=== PATIENT | female | born 1985 | race Caucasian/White ===

== ENCOUNTER 2020-03-04 09:48 | Outpatient (REF) | payer OTHER, SELFPAY ==
[2020-03-04 11:13] LABS: Estimated Average Glucose 157 mg/dL; Hemoglobin A1c % 7.1 %
[2020-03-04 11:48] LABS: Thyroid Stimulating Hormone 0.93 uIU/mL (0.32-4.0)
[2020-03-04 12:03] LABS: Alanine Aminotransferase 14 U/L (0-31); Alkaline Phosphatase 66 U/L (39-117); Anion Gap 9 (12-20); Aspartate Amino Transferase 15 U/L (5-31); Bilirubin Total 0.4 mg/dL (0.0-1.0); Blood Urea Nitrogen 9 mg/dL (9-16); Calcium 8.6 mg/dL (8.4-10.2); Carbon Dioxide 27 mmol/L (22-29); Chloride 105 mmol/L (96-108); Cholesterol 144 mg/dL; Estimated Glomerular Filt Rate > 60; Glucose Fasting 117 mg/dL (60-99); HDL Cholesterol 50 mg/dL; LDL Cholesterol Calculated 78 mg/dl; Potassium 4.6 mmol/l (3.3-5.1); Sodium 136 mmol/L (135-145); Total Protein 7.3 g/dL (6.5-8.0); Triglycerides 80 mg/dL
== END 2020-03-04 09:49 | disposition home or self-care (01) ==
LOC: HO.LAB 09:48
PROVIDERS: PCP Physician Assistant; Visit Provider Physician Assistant
DX: E11.9 Type 2 diabetes mellitus without complications (principal)
CPT/HCPCS: 80053; 80061; 83036; 84443

== ENCOUNTER 2020-03-29 11:06 | Outpatient (REF) | payer OTHER, SELFPAY | END 2020-03-29 11:07 | disposition home or self-care (01) | LOC: HO.HMGCLDS 11:06 | PROVIDERS: PCP Physician Assistant; Visit Provider Internal Medicine | DX: Z20.828 Contact with and (suspected) exposure to other viral communicable diseases (principal) | CPT/HCPCS: C9803; U0003 ==

== ENCOUNTER 2020-06-01 13:32 | Outpatient (REF) | payer OTHER, SELFPAY ==
[2020-06-01 14:28] LABS: Estimated Average Glucose 154 mg/dL
[2020-06-01 14:41] LABS: Alanine Aminotransferase 16 U/L (0-31); Alkaline Phosphatase 68 U/L (39-117); Anion Gap 14 (12-20); Aspartate Amino Transferase 17 U/L (5-31); Bilirubin Total 0.5 mg/dL (0.0-1.0); Blood Urea Nitrogen 11 mg/dL (9-16); Calcium 8.8 mg/dL (8.4-10.2); Carbon Dioxide 26 mmol/L (22-29); Chloride 103 mmol/L (96-108); Cholesterol 152 mg/dL; Estimated Glomerular Filt Rate > 60; Glucose Fasting 109 mg/dL (60-99); HDL Cholesterol 48 mg/dL; LDL Cholesterol Calculated 91 mg/dl; Potassium 4.6 mmol/L (3.3-5.1); Sodium 138 mmol/L (135-145); Total Protein 7.3 g/dL (6.5-8.0); Triglycerides 68 mg/dL
== END 2020-06-01 13:33 | disposition home or self-care (01) ==
LOC: HO.LAB 13:32
PROVIDERS: PCP Physician Assistant; Visit Provider Physician Assistant
DX: E11.9 Type 2 diabetes mellitus without complications (principal); E78.00 Pure hypercholesterolemia, unspecified
CPT/HCPCS: 36415; 80053; 80061; 83036

== ENCOUNTER 2020-09-23 12:14 | Outpatient (REF) | payer OTHER, SELFPAY ==
[2020-09-23 13:18] LABS: Hematocrit 40.4 % (37-47); Mean Corpuscular HGB Conc 32.2 g/dl (31.0-35.0); Mean Corpuscular Hemoglobin 27.4 pg (27.0-33.0); Mean Corpuscular Volume 85.1 fL (80-98); Mean Platelet Volume 11.4 fL (9.4-12.3); Platelet Count 283 X10*3/uL (160-400); Red Blood Count 4.75 X10*6/uL (4.20-5.50); Red Cell Distribution Width 12.8 % (11.0-16.0); White Blood Count 7.3 X10*3/uL (4.8-10.8)
[2020-09-23 13:19] LABS: Estimated Average Glucose 174 mg/dL; Hemoglobin A1c % 7.7 %
[2020-09-23 13:52] LABS: Alanine Aminotransferase 16 U/L (0-31); Alkaline Phosphatase 65 U/L (39-117); Anion Gap 13 (12-20); Aspartate Amino Transferase 17 U/L (5-31); Bilirubin Total 0.5 mg/dL (0.0-1.0); Blood Urea Nitrogen 12 mg/dL (9-16); Calcium 9.2 mg/dL (8.4-10.2); Carbon Dioxide 24 mmol/L (22-29); Chloride 107 mmol/L (96-108); Cholesterol 151 mg/dL; Estimated Glomerular Filt Rate > 60; Glucose Fasting 119 mg/dL (60-99); HDL Cholesterol 49 mg/dL; LDL Cholesterol Calculated 86 mg/dl; Potassium 4.6 mmol/L (3.3-5.1); Sodium 139 mmol/L (135-145); Total Protein 7.2 g/dL (6.5-8.0); Triglycerides 80 mg/dL
[2020-09-23 14:12] LABS: TSH reflex Free T4 1.15 uIU/mL (0.32-4.0)
== END 2020-09-23 12:15 | disposition home or self-care (01) ==
LOC: HO.10HDL 12:14
PROVIDERS: PCP Physician Assistant; Visit Provider Physician Assistant
DX: E11.9 Type 2 diabetes mellitus without complications (principal); I10 Essential (primary) hypertension; E78.00 Pure hypercholesterolemia, unspecified; E66.01 Morbid (severe) obesity due to excess calories; Z68.41 Body mass index [BMI] 40.0-44.9, adult
CPT/HCPCS: 36415; 80053; 80061; 83036; 84443; 85027

== ENCOUNTER → 2020-11-30 09:24 | Outpatient (BNVA) | payer OTHER, SELFPAY | PROVIDERS: PCP Physician Assistant; Visit Provider Obstetrics & Gynecology ==

== ENCOUNTER 2021-01-27 11:25 | Outpatient (REF) | payer OTHER, SELFPAY ==
[2021-01-27 13:43] LABS: Hematocrit 41.1 % (37-47); Hemoglobin 13.5 g/dl (12.0-16.0); Mean Corpuscular HGB Conc 32.8 g/dl (31.0-35.0); Mean Corpuscular Hemoglobin 28.3 pg (27.0-33.0); Mean Corpuscular Volume 86.2 fL (80-98); Mean Platelet Volume 11.6 fL (9.4-12.3); Platelet Count 266 X10*3/uL (160-400); Red Blood Count 4.77 X10*6/uL (4.20-5.50); Red Cell Distribution Width 13.1 % (11.0-16.0); White Blood Count 8.9 X10*3/uL (4.8-10.8)
[2021-01-27 13:58] LABS: Estimated Average Glucose 154 mg/dL
[2021-01-27 14:14] LABS: Alanine Aminotransferase 17 U/L (0-31); Albumin Level 4.1 g/dL (3.5-5.0); Alkaline Phosphatase 65 U/L (39-117); Anion Gap 12 (12-20); Aspartate Amino Transferase 16 U/L (5-31); Bilirubin Total 0.4 mg/dL (0.0-1.0); Blood Urea Nitrogen 10 mg/dL (9-16); Carbon Dioxide 24 mmol/L (22-29); Chloride 106 mmol/L (96-108); Cholesterol 151 mg/dL; Estimated Glomerular Filt Rate > 60; Glucose Fasting 113 mg/dL (60-99); HDL Cholesterol 46 mg/dL; LDL Cholesterol Calculated 83 mg/dl; Potassium 4.5 mmol/L (3.3-5.1); Sodium 137 mmol/L (135-145); Total Protein 7.4 g/dL (6.5-8.0); Triglycerides 114 mg/dL
== END 2021-01-27 11:26 | disposition home or self-care (01) ==
LOC: HO.10HDL 11:25
PROVIDERS: Visit Provider Physician Assistant
DX: I10 Essential (primary) hypertension (principal); E11.9 Type 2 diabetes mellitus without complications; E78.00 Pure hypercholesterolemia, unspecified
CPT/HCPCS: 36415; 80053; 80061; 83036; 85027

== ENCOUNTER → 2021-02-10 11:19 | Outpatient (BNVA) | payer OTHER, SELFPAY | PROVIDERS: PCP Physician Assistant; Visit Provider Dietitian, Registered | DX: E11.9 Type 2 diabetes mellitus without complications (principal) | CPT/HCPCS: 97802 ==

== ENCOUNTER → 2021-02-23 15:57 | Outpatient (BNVA) | payer OTHER, SELFPAY | PROVIDERS: PCP Physician Assistant; Visit Provider Obstetrics & Gynecology ==

== ENCOUNTER 2021-02-24 11:35 | Outpatient (REF) | payer OTHER, SELFPAY ==
[2021-02-25 04:31] LABS: CT PCR NOT DETECTED (Not Detect.); NG PCR NOT DETECTED (Not Detect.)
== END 2021-02-24 11:36 | disposition home or self-care (01) ==
LOC: HO.LAB 11:35
PROVIDERS: PCP Physician Assistant; Visit Provider Obstetrics & Gynecology
DX: Z30.430 Encounter for insertion of intrauterine contraceptive device (principal)
CPT/HCPCS: 58300; 87491; 87591; J7298

== ENCOUNTER → 2021-03-24 10:48 | Outpatient (BNVA) | payer OTHER, SELFPAY | PROVIDERS: PCP Physician Assistant; Visit Provider Dietitian, Registered | DX: E11.9 Type 2 diabetes mellitus without complications (principal) | CPT/HCPCS: 97803 ==

== ENCOUNTER → 2021-03-28 15:43 | Outpatient (BNVA) | payer OTHER, SELFPAY | PROVIDERS: PCP Physician Assistant; Visit Provider Obstetrics & Gynecology | DX: Z30.431 Encounter for routine checking of intrauterine contraceptive device (principal) | CPT/HCPCS: 81025; 99212 ==

== ENCOUNTER 2021-06-02 12:20 | Outpatient (REF) | payer OTHER, SELFPAY ==
[2021-06-02 14:01] LABS: Estimated Average Glucose 120 mg/dL; Hemoglobin A1c % 5.8 %
[2021-06-02 14:09] LABS: Alanine Aminotransferase 17 U/L (0-31); Albumin Level 4.1 g/dL (3.5-5.0); Alkaline Phosphatase 65 U/L (39-117); Anion Gap 10 (12-20); Aspartate Amino Transferase 19 U/L (5-31); Bilirubin Total 0.5 mg/dL (0.0-1.0); Blood Urea Nitrogen 10 mg/dL (9-16); Calcium 9.1 mg/dL (8.4-10.2); Carbon Dioxide 22 mmol/L (22-29); Chloride 109 mmol/L (96-108); Cholesterol 118 mg/dL; Estimated Glomerular Filt Rate > 60; Glucose Fasting 95 mg/dL (60-99); HDL Cholesterol 41 mg/dL; LDL Cholesterol Calculated 66 mg/dl; Sodium 137 mmol/L (135-145); Total Protein 7.1 g/dL (6.5-8.0); Triglycerides 55 mg/dL
[2021-06-02 14:31] LABS: TSH reflex Free T4 0.77 uIU/mL (0.32-4.0)
== END 2021-06-02 12:21 | disposition home or self-care (01) ==
LOC: HO.10HDL 12:20
PROVIDERS: Visit Provider Physician Assistant
DX: E11.9 Type 2 diabetes mellitus without complications (principal)
CPT/HCPCS: 36415; 80053; 80061; 83036; 84443

== ENCOUNTER → 2021-06-09 13:26 | Outpatient (BNVA) | payer OTHER, SELFPAY | PROVIDERS: PCP Physician Assistant; Visit Provider Dietitian, Registered | DX: E11.9 Type 2 diabetes mellitus without complications (principal) | CPT/HCPCS: 97803 ==

== ENCOUNTER 2021-07-21 11:34 | Outpatient (REF) | payer OTHER, SELFPAY ==
[2021-07-21 13:04] LABS: Alanine Aminotransferase 23 U/L (0-31); Albumin Level 4.2 g/dL (3.5-5.0); Alkaline Phosphatase 81 U/L (39-117); Anion Gap 10 (12-20); Aspartate Amino Transferase 19 U/L (5-31); Bilirubin Total 0.5 mg/dL (0.0-1.0); Blood Urea Nitrogen 9 mg/dL (9-16); Calcium 9.3 mg/dL (8.4-10.2); Carbon Dioxide 23 mmol/L (22-29); Chloride 110 mmol/L (96-108); Estimated Glomerular Filt Rate > 60; Glucose Fasting 103 mg/dL (60-99); Potassium 4.7 mmol/L (3.3-5.1); Sodium 138 mmol/L (135-145); Total Protein 7.4 g/dL (6.5-8.0)
[2021-07-21 13:24] LABS: TSH reflex Free T4 0.82 uIU/mL (0.32-4.0)
[2021-07-21 13:36] LABS: Hematocrit 41.5 % (37.0-47.0); Hemoglobin 13.5 g/dl (12.0-16.0); Mean Corpuscular HGB Conc 32.5 g/dl (31.0-35.0); Mean Corpuscular Hemoglobin 28.3 pg (27.0-33.0); Mean Platelet Volume 11.7 fL (9.4-12.3); Platelet Count 280 X10*3/uL (160-400); Red Blood Count 4.77 X10*6/uL (4.20-5.50); Red Cell Distribution Width 13.5 % (11.0-16.0)
== END 2021-07-21 11:35 | disposition home or self-care (01) ==
LOC: HO.LAB 11:34
PROVIDERS: PCP Physician Assistant; Visit Provider Physician Assistant
DX: E11.9 Type 2 diabetes mellitus without complications (principal)
CPT/HCPCS: 36415; 80053; 84443; 85027

== ENCOUNTER 2021-12-22 11:19 | Outpatient (REF) | payer OTHER, SELFPAY ==
[2021-12-22 17:04] LABS: CT PCR NOT DETECTED (Not Detect.); NG PCR NOT DETECTED (Not Detect.)
[2021-12-23 08:02] LABS: Syphilis Screen Nonreactive (Nonreactive)
[2021-12-23 08:08] LABS: HBsAGNum1 0.27 S/CO (0.00-0.99); HIV AB/AG Nonreactive (Nonreactive); Hepatitis B Surface Antigen Negative (Negative); ~Hepatitis C Antibody Nonreactive (Nonreactive)
[2021-12-23 14:28] LABS: BV Int Neg Control Negative (Negative); BV Int Pos Control Positive (Positive)
== END 2021-12-22 11:20 | disposition home or self-care (01) ==
LOC: HO.LAB 11:19
PROVIDERS: PCP Physician Assistant; Visit Provider Obstetrics & Gynecology
DX: Z11.3 Encounter for screening for infections with a predominantly sexual mode of transmission (principal); Z11.4 Encounter for screening for human immunodeficiency virus [HIV]
CPT/HCPCS: 36415; 86780; 86803; 87340; 87389; 87480; 87491; 87510; 87591; 87660

== ENCOUNTER 2021-12-22 15:51 | Outpatient (REF) | payer OTHER, SELFPAY ==
[2021-12-28 00:37] LABS: HPV mRNA E6/E7 rflx Not Detected (Not Detected)
== END 2021-12-22 15:52 | disposition home or self-care (01) ==
LOC: HO.LNP 15:51
PROVIDERS: Visit Provider Obstetrics & Gynecology
DX: Z01.419 Encounter for gynecological examination (general) (routine) without abnormal findings (principal)
CPT/HCPCS: 87624; 88142

== ENCOUNTER 2022-02-01 08:30 | Outpatient (REF) | payer OTHER, SELFPAY ==
[2022-02-01 09:04] LABS: Hematocrit 41.8 % (37.0-47.0); Hemoglobin 13.5 g/dl (12.0-16.0); Mean Corpuscular HGB Conc 32.3 g/dl (31.0-35.0); Mean Corpuscular Hemoglobin 28.5 pg (27.0-33.0); Mean Corpuscular Volume 88.2 fL (80.0-98.0); Platelet Count 268 X10*3/uL (160-400); Red Blood Count 4.74 X10*6/uL (4.20-5.50); Red Cell Distribution Width 13.2 % (11.0-16.0); White Blood Count 10.5 X10*3/uL (4.8-10.8)
[2022-02-01 09:22] LABS: Estimated Average Glucose 140 mg/dL; Hemoglobin A1c % 6.5 %
[2022-02-01 09:59] LABS: Alanine Aminotransferase 24 U/L (0-31); Albumin Level 4.2 g/dL (3.5-5.0); Alkaline Phosphatase 82 U/L (39-117); Anion Gap 14 (12-20); Aspartate Amino Transferase 19 U/L (5-31); Bilirubin Total 0.3 mg/dL (0.0-1.0); Blood Urea Nitrogen 16 mg/dL (9-16); Calcium 9.1 mg/dL (8.4-10.2); Carbon Dioxide 26 mmol/L (22-29); Chloride 104 mmol/L (96-108); Cholesterol 122 mg/dL; Estimated Glomerular Filt Rate > 60; Glucose Fasting 134 mg/dL (60-99); HDL Cholesterol 44 mg/dL; LDL Cholesterol Calculated 62 mg/dl; Potassium 4.5 mmol/L (3.3-5.1); Sodium 139 mmol/L (135-145); Total Protein 7.3 g/dL (6.5-8.0); Triglycerides 80 mg/dL
[2022-02-01 10:19] LABS: TSH reflex Free T4 1.07 uIU/mL (0.32-4.0)
== END 2022-02-01 08:31 | disposition home or self-care (01) ==
LOC: HO.LAB 08:30
PROVIDERS: PCP Physician Assistant; Visit Provider Physician Assistant
DX: E11.9 Type 2 diabetes mellitus without complications (principal)
CPT/HCPCS: 36415; 80053; 80061; 83036; 84443; 85027

== ENCOUNTER → 2022-02-22 09:07 | Outpatient (REF) | payer OTHER, SELFPAY | LOC: HO.SL 09:07 | PROVIDERS: PCP Physician Assistant; Visit Provider Physician Assistant | DX: G47.33 Obstructive sleep apnea (adult) (pediatric) (principal) | CPT/HCPCS: 95806 ==

== ENCOUNTER 2022-06-30 13:15 | Emergency (ER) | payer OTHER, SELFPAY ==
[2022-06-30 13:58] VITALS: BP 138/93; PULSE 93; RESP 18; TEMP 36.8; O2SAT 94; BMI 39.4
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
== END 2022-06-30 14:12 | disposition home or self-care (01) ==
PROVIDERS: Emergency Provider Emergency Medicine; PCP Physician Assistant
DX: M54.50 Low back pain, unspecified (principal); M62.830 Muscle spasm of back; S39.012A Strain of muscle, fascia and tendon of lower back, initial encounter; V43.62XA Car passenger injured in collision with other type car in traffic accident, initial encounter; Y93.9 Activity, unspecified; Y92.9 Unspecified place or not applicable; Y99.9 Unspecified external cause status
CPT/HCPCS: 99282; 99283

== ENCOUNTER 2022-08-10 11:51 | Outpatient (REF) | payer OTHER, SELFPAY ==
[2022-08-10 12:24] LABS: Hematocrit 43.3 % (37.0-47.0); Hemoglobin 14.3 g/dl (12.0-16.0); Mean Corpuscular Hemoglobin 28.5 pg (27.0-33.0); Mean Corpuscular Volume 86.4 fL (80.0-98.0); Platelet Count 269 X10*3/uL (160-400); Red Blood Count 5.01 X10*6/uL (4.20-5.50); Red Cell Distribution Width 12.8 % (11.0-16.0)
[2022-08-10 12:40] LABS: Estimated Average Glucose 140 mg/dL; Hemoglobin A1c % 6.5 %
[2022-08-10 13:08] LABS: Alanine Aminotransferase 50 U/L (0-31); Albumin Level 4.1 g/dL (3.5-5.0); Alkaline Phosphatase 91 U/L (39-117); Anion Gap 13 (12-20); Aspartate Amino Transferase 39 U/L (5-31); Bilirubin Total 0.7 mg/dL (0.0-1.0); Blood Urea Nitrogen 8 mg/dL (9-16); Calcium 9.1 mg/dL (8.4-10.2); Carbon Dioxide 26 mmol/L (22-29); Chloride 105 mmol/L (96-108); Cholesterol 114 mg/dL; Estimated Glomerular Filt Rate > 60; Glucose Fasting 111 mg/dL (60-99); HDL Cholesterol 38 mg/dL; LDL Cholesterol Calculated 65 mg/dl; Potassium 4.8 mmol/L (3.3-5.1); Sodium 139 mmol/L (135-145); Total Protein 7.2 g/dL (6.5-8.0); Triglycerides 59 mg/dL
== END 2022-08-10 11:52 | disposition home or self-care (01) ==
LOC: HO.LAB 11:51
PROVIDERS: PCP Physician Assistant; Visit Provider Physician Assistant
DX: E11.9 Type 2 diabetes mellitus without complications (principal); E78.00 Pure hypercholesterolemia, unspecified
CPT/HCPCS: 36415; 80053; 80061; 83036; 84443; 85027

== ENCOUNTER 2022-08-31 08:35 | Outpatient (REF) | payer OTHER, SELFPAY ==
--- NOTE | ~2022-08-31 | US_ITS ---
EXAMINATION: US ABDOMEN LIMITED CLINICAL INFORMATION: Elevated liver enzymes. COMPARISON: None available. TECHNIQUE: Real-time imaging of the right upper quadrant abdominal viscera. FINDINGS: PANCREAS: Not well visualized bowel gas LIVER: Normal. The liver is normal in size. The liver contour is normal. Parenchymal echogenicity is normal. No focal hepatic lesion. There is no intrahepatic biliary duct dilatation seen. GALLBLADDER: Surgically absent. COMMON BILE DUCT: Normal in caliber measuring 0.5 cm in diameter. RIGHT KIDNEY: Normal. No hydronephrosis. No renal calculi or focal parenchymal lesions. The kidney measures 9.7 cm in maximum dimension. FREE FLUID: None. US/US abdomen limited IMPRESSION: Limited visualization of the pancreas. Otherwise unremarkable exam.
== END 2022-08-31 08:36 | disposition home or self-care (01) ==
LOC: HO.US 08:35
PROVIDERS: PCP Physician Assistant; Visit Provider Physician Assistant
DX: R74.8 Abnormal levels of other serum enzymes (principal)
CPT/HCPCS: 76705

== ENCOUNTER 2022-11-13 08:40 | Outpatient (AMB) | payer OTHER, SELFPAY ==
[2022-11-13 08:48] VITALS: BP 126/84; PULSE 80; O2SAT 99; BMI 39.3
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
== END 2022-11-13 09:31 | disposition home or self-care (01) ==
PROVIDERS: PCP Physician Assistant; Visit Provider Physician Assistant
DX: F41.0 Panic disorder [episodic paroxysmal anxiety] (principal)
CPT/HCPCS: 99213

== ENCOUNTER 2022-11-27 18:53 | Emergency (ER) | payer OTHER, SELFPAY ==
--- NOTE | ~2022-11-27 | XR_ITS ---
EXAMINATION: XR CHEST CLINICAL INFORMATION: Palpitations COMPARISON: Chest x-ray on 04/24/2019 TECHNIQUE: 2 views of the chest were obtained. FINDINGS: No significant abnormality is noted involving the heart, lungs, mediastinum, bony thorax or soft tissues. XR/XR chest 2V IMPRESSION: Unremarkable examination.
--- NOTE | 2022-11-27 18:56 | ECG_ITS ---
Test Reason : palpitations Blood Pressure : / mmHG Vent. Rate : 090 BPM Atrial Rate : 090 BPM P-R Int : 144 ms QRS Dur : 072 ms QT Int : 358 ms P-R-T Axes : 051 027 030 degrees QTc Int : 437 ms Normal sinus rhythm Anterior infarct , age undetermined Abnormal ECG No previous ECGs available Referred By: Ruth Awad Electronically Signed By:Mukund Gauthier
[2022-11-27 19:47] LABS: MANUAL DIFF FLAG NO
[2022-11-27 19:48] LABS: Basophils Percent Auto 0.4 % (0-2); Eosinophils Absolute Auto 0.1 X10*3/uL (0.0-0.4); Eosinophils Percent Auto 0.8 % (0-4); Hematocrit 41.8 % (37.0-47.0); Hemoglobin 13.8 g/dl (12.0-16.0); Imm Gran Abs Auto 0.04 X10*3/uL (0.00-0.03); Imm Gran Pct Auto 0.4 % (0.0-0.4); Lymphocytes Absolute Auto 2.5 X10*3/uL (1.2-4.9); Lymphocytes Percent Auto 25.2 % (20-40); Mean Corpuscular Hemoglobin 28.2 pg (27.0-33.0); Mean Corpuscular Volume 85.5 fL (80.0-98.0); Mean Platelet Volume 10.8 fL (9.4-12.3); Monocytes Absolute Auto 0.6 X10*3/uL (0.1-1.2); Neutrophils Absolute Auto 6.6 x10*3/uL (2.0-8.3); Neutrophils Percent Auto 67.2 % (45-73); Platelet Count 288 X10*3/uL (160-400); Red Blood Count 4.89 X10*6/uL (4.20-5.50); Red Cell Distribution Width 12.7 % (11.0-16.0); White Blood Count 9.8 X10*3/uL (4.8-10.8)
[2022-11-27 20:01] LABS: COVID-19 Test Negative (Negative); IDNOW Serial# 6674DD1D
[2022-11-27 20:02] LABS: Alanine Aminotransferase 39 U/L (0-31); Albumin Level 4.4 g/dL (3.5-5.0); Alkaline Phosphatase 81 U/L (39-117); Anion Gap 11 (12-20); Aspartate Amino Transferase 31 U/L (5-31); Bilirubin Total 0.3 mg/dL (0.0-1.0); Blood Urea Nitrogen 9 mg/dL (9-16); Calcium 9.4 mg/dL (8.4-10.2); Carbon Dioxide 26 mmol/L (22-29); Chloride 107 mmol/L (96-108); Estimated Glomerular Filt Rate > 60; Glucose Random 128 mg/dL (60-115); Magnesium 1.8 mg/dL (1.6-2.6); Potassium 4.1 mmol/L (3.3-5.1); Sodium 140 mmol/L (135-145)
[2022-11-27 20:12] LABS: Troponin-I High Sensitivity < 2.7 ng/L (<3.5-17.0)
[2022-11-27 20:27] VITALS: BP 139/93; PULSE 86; RESP 20; TEMP 36.4; O2SAT 98; BMI 39.1
--- NOTE | 2022-11-27 20:29 | ED.GENADULT ---
HPI - General Adult General Chief complaint: Anxiety Stated complaint: heartbeat too fast/anxiety Time Seen by Provider: 11/27/22 20:38 Source: patient Mode of arrival: ambulatory Limitations: no limitations History of Present Illness HPI narrative: Patient with history of anxiety complaining of palpitations diarrhea all day today unable to sleep when arrived artery was in 70s and was feeling anxious and feeling palpitation but it was sinus rhythm no chest pain or shortness of breath Related Data Home Medications Medication Instructions Recorded Confirmed levonorgestrel 21 mcg/24 hours (8 intrauterine 03/28/21 11/13/22 yrs) 52 mg intrauterine device (Mirena) cholecalciferol (vitamin D3) 25 25 mcg PO DAILY 12/22/21 11/13/22 mcg (1,000 unit) capsule Previous Rx's Medication Instructions Recorded magnesium oxide 400 mg PO .nightly 90 days #90 tabs 09/30/20 lancets 28 gauge (FreeStyle #100 ea 12/09/20 Lancets) blood-glucose meter (FreeStyle #1 ea 12/13/20 Lite Meter kit) blood sugar diagnostic (FreeStyle #100 ea 12/19/20 Lite Strips) albuterol sulfate 90 mcg/actuation 1 inh inhalation QID PRN shortness 12/28/21 aerosol inhaler of breath or wheezing 30 days #8.5 grams pen needle, diabetic 32 gauge x #50 ea 02/07/22 (BD Ultra-Fine Elizabeth Pen Needle) atomoxetine 80 mg capsule 80 mg PO DAILY 30 days #30 caps 08/15/22 (Strattera) ibuprofen 600 mg tablet 600 mg PO Q8H PRN pain #30 tabs 08/15/22 dulaglutide 0.75 mg/0.5 mL 0.75 mg (0.5 mL) subcut QWEEK 90 10/06/22 subcutaneous pen injector days #6.5 mL (Trulicity) simvastatin 20 mg tablet 20 mg PO DAILY #90 tabs 11/09/22 hydroxyzine HCl 10 mg tablet 20 mg PO BEDTIME PRN anxiety 30 11/13/22 days #60 tabs lorazepam 1 mg tablet (Ativan) 1 mg PO BEDTIME PRN sleep/anxiety 11/27/22 #14 tabs Allergies Allergy/AdvReac Type Severity Reaction Status Date / Time acetaminophen [Lortab] AdvReac Unknown Unknown Verified 11/13/22 09:10 hydrocodone [Lortab] AdvReac Unknown Unknown Verified 11/13/22 09:10 metformin AdvReac Unknown Unknown Verified 11/13/22 09:10 Review of Systems Review of Systems: Yes all other systems are reviewed and are negative [facility] Past Medical History Medical History Arthritis Diabetes Surgical History History of cholecystectomy Hx of tonsillectomy Family History Family History Father Medical history unknown Mother Diabetes Schizophrenia Maternal Uncle Hypertension Myocardial infarction Family/Other Diabetes Cancer Maternal Grandfather Aneurysm Brother No problems noted. Brother No problems noted. Sister No problems noted. 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 Oriented X3. No acute distress. Eyes: PERRLA, No Nystagmus ENT: Pharynx normal. Oral Mucosa moist Neck: Normal inspection. Neck supple. CVS: Normal heart rate and rhythm. Pulses normal. Respiratory: No respiratory distress. Equal air entry bilateral, no wheezing/rales/rhonchi Abdomen: Soft and nontender. Bowel sounds are present, no mass palpable, no CVA tenderness Skin: Skin warm and dry. Normal skin color. Normal skin turgor. Extremities: No lower extremity edema. No calf tenderness Neuro: Oriented X 3. No motor deficit. No sensory deficit.No cerebellar signs , cranial nerves II-XII intact Course Course Course Narrative: RME performed by Ruth Awad PA-C. Patient is a 37 year old assigned female at presenting to the emergency department with palpitations and worsening anxiety. Labs ordered. Patient placed back in the waiting room pending room availability and results. Medications Administered Discontinued Medications Generic Name Dose Route Start Last Admin Trade Name Tracey PRN Reason Stop Dose Admin Lorazepam 0.5 mg 11/27/22 21:01 11/27/22 21:10 Lorazepam 0.5 Mg Tablet PO 11/27/22 21:02 0.5 mg ONCE ONE Administration Medical Decision Making Medical Decision Making MDM Narrative: Patient with anxiety with palpitation labs are stable discharge patient home on Ativan Lab Data [facility] Lab Attestation statement: I reviewed the patient's lab results. 11/27/22 19:43 11/27/22 19:43 Labs: Lab Results 11/27/22 11/27/22 11/27/22 Range/Units 19:43 19:43 19:43 WBC 9.8 (4.8-10.8) X10*3/uL RBC 4.89 (4.20-5.50) X10*6/uL Hgb 13.8 (12.0-16.0) g/dl Hct 41.8 (37.0-47.0) % MCV 85.5 (80.0-98.0) fL MCH 28.2 (27.0-33.0) pg MCHC 33.0 (31.0-35.0) g/dl RDW 12.7 (11.0-16.0) % Plt Count 288 (160-400) X10*3/uL MPV 10.8 (9.4-12.3) fL Immature Gran % (Auto) 0.4 (0.0-0.4) % Neut % (Auto) 67.2 (45-73) % Lymph % (Auto) 25.2 (20-40) % [place] % (Auto) 6.0 (2-11) % Eos % (Auto) 0.8 (0-4) % Baso % (Auto) 0.4 (0-2) % Lymph # (Auto) 2.5 (1.2-4.9) X10*3/uL [place] # (Auto) 0.6 (0.1-1.2) X10*3/uL Eos # (Auto) 0.1 (0.0-0.4) X10*3/uL Baso # (Auto) 0.0 (0.0-0.2) X10*3/uL Abs Immat Gran (auto) 0.04 H (0.00-0.03) X10*3/uL Absolute Neuts (auto) 6.6 (2.0-8.3) x10*3/uL Absolute Nucleated RBC 0.000 (0.0-0.012) X10*3/uL Nucleated RBC % (auto) 0.0 (0.0-0.2) /100WBC Sodium 140 (135-145) mmol/L Potassium 4.1 (3.3-5.1) mmol/L Chloride 107 (96-108) mmol/L Carbon Dioxide 26 (22-29) mmol/L Anion Gap 11 L (12-20) BUN 9 (9-16) mg/dL Creatinine 0.78 (0.5-1.4) mg/dL Estim Creat Clear Calc TNP Estimated GFR > 60 Random Glucose 128 H (60-115) mg/dL Calcium 9.4 (8.4-10.2) mg/dL Magnesium 1.8 (1.6-2.6) mg/dL Total Bilirubin 0.3 (0.0-1.0) mg/dL AST 31 (5-31) U/L ALT 39 H (0-31) U/L Alkaline Phosphatase 81 (39-117) U/L Troponin I High Sens < 2.7 (<3.5-17.0) ng/L Total Protein 8.0 (6.5-8.0) g/dL Albumin 4.4 (3.5-5.0) g/dL COVID-19 (ARASELI) (Negative) COVID-19 Clin Com 11/27/22 Range/Units 19:43 WBC (4.8-10.8) X10*3/uL RBC (4.20-5.50) X10*6/uL Hgb (12.0-16.0) g/dl Hct (37.0-47.0) % MCV (80.0-98.0) fL MCH (27.0-33.0) pg MCHC (31.0-35.0) g/dl RDW (11.0-16.0) % Plt Count (160-400) X10*3/uL MPV (9.4-12.3) fL Immature Gran % (Auto) (0.0-0.4) % Neut % (Auto) (45-73) % Lymph % (Auto) (20-40) % [place] % (Auto) (2-11) % Eos % (Auto) (0-4) % Baso % (Auto) (0-2) % Lymph # (Auto) (1.2-4.9) X10*3/uL [place] # (Auto) (0.1-1.2) X10*3/uL Eos # (Auto) (0.0-0.4) X10*3/uL Baso # (Auto) (0.0-0.2) X10*3/uL Abs Immat Gran (auto) (0.00-0.03) X10*3/uL Absolute Neuts (auto) (2.0-8.3) x10*3/uL Absolute Nucleated RBC (0.0-0.012) X10*3/uL Nucleated RBC % (auto) (0.0-0.2) /100WBC Sodium (135-145) mmol/L Potassium (3.3-5.1) mmol/L Chloride (96-108) mmol/L Carbon Dioxide (22-29) mmol/L Anion Gap (12-20) BUN (9-16) mg/dL Creatinine (0.5-1.4) mg/dL Estim Creat Clear Calc Estimated GFR Random Glucose (60-115) mg/dL Calcium (8.4-10.2) mg/dL Magnesium (1.6-2.6) mg/dL Total Bilirubin (0.0-1.0) mg/dL AST (5-31) U/L ALT (0-31) U/L Alkaline Phosphatase (39-117) U/L Troponin I High Sens (<3.5-17.0) ng/L Total Protein (6.5-8.0) g/dL Albumin (3.5-5.0) g/dL COVID-19 (ARASELI) Negative (Negative) COVID-19 Clin Com See Note Independent Interpretation I performed an independent interpretation of an: EKG Interpretation: Normal sinus rhythm heart rate 90 beats per minute normal interval normal axis no acute ST-T changes no acute ischemia Discharge Plan Discharge Clinical Impression: Acute anxiety Patient Disposition: Home, Self-Care Instructions: Anxiety (ED) Additional Instructions: Continue medication as prescribed by your PCP Ativan 1 mg at bedtime as needed for severe anxiety/sleep Prescriptions: New lorazepam [Ativan] 1 mg tablet 1 mg PO BEDTIME PRN (Reason: sleep/anxiety) Qty: 14 0RF No Action (DME) lancets [FreeStyle Lancets] 28 gauge misc See Rx Instructions .ROUTE .MEDSUPPLY Qty: 100 3RF Rx Instructions: As directed (DME) blood-glucose meter [FreeStyle Lite Meter] Kit See Rx Instructions .Route Qty: 1 0RF Rx Instructions: Test 3 times Daiy (DME) FreeStyle Lite Strips Strip See Rx Instructions .ROUTE .MEDSUPPLY Qty: 100 1RF Rx Instructions: Test 3 times Daily albuterol sulfate 90 mcg/actuation HFA aerosol inhaler 1 inh inhalation QID PRN (Reason: shortness of breath or wheezing) 30 Days Qty: 8.5 0RF Trulicity 0.75 mg/0.5 mL pen injector 0.75 mg subcut QWEEK 90 Days Qty: 6.5 0RF simvastatin 20 mg tablet 20 mg PO DAILY Qty: 90 1RF magnesium oxide 400 mg magnesium tablet 400 mg PO .nightly 90 Days Qty: 90 1RF ibuprofen 600 mg tablet 600 mg PO Q8H PRN (Reason: pain) Qty: 30 0RF atomoxetine [Strattera] 80 mg capsule 80 mg PO DAILY 30 Days Qty: 30 3RF hydroxyzine HCl 10 mg tablet 20 mg PO BEDTIME PRN (Reason: anxiety) 30 Days Qty: 60 0RF (DME) pen needle, diabetic [BD Ultra-Fine Elizabeth Pen Needle] 32 gauge x 5/32 needle See Rx Instructions .ROUTE .MEDSUPPLY Qty: 50 0RF Rx Instructions: As directed Mirena 20 mcg/24 hours (7 yrs) 52 mg intrauterine device intrauterine cholecalciferol (vitamin D3) 25 mcg (1,000 unit) capsule 25 mcg PO DAILY Mirena 20 mcg/24 hours (7 yrs) 52 mg intrauterine device 1 device intrauterine ONCE Qty: 1 0RF Interventions: ED Discharge Assessment Last Done: 11/27/22 21:23 Discharge Date/Time: 11/27/22 21:24
[2022-11-27 21:02] VITALS: BP 130/79; PULSE 79; RESP 20; TEMP 36.6; O2SAT 100
[2022-11-27] MEDS: LORazepam 0.5 MG TABLET PO (21:10)
[2022-11-28 06:48] LABS: Glucose, Whole Blood 135 mg/dL (60-115)
== END 2022-11-27 21:24 | disposition home or self-care (01) ==
PROVIDERS: Physician Assistant Medical; Emergency Provider Internal Medicine; PCP Physician Assistant
DX: F41.9 Anxiety disorder, unspecified (principal); Z20.822 Contact with and (suspected) exposure to COVID-19; E11.9 Type 2 diabetes mellitus without complications; E78.5 Hyperlipidemia, unspecified; F17.200 Nicotine dependence, unspecified, uncomplicated; F12.90 Cannabis use, unspecified, uncomplicated; E66.9 Obesity, unspecified; Z68.39 Body mass index [BMI] 39.0-39.9, adult; Z90.49 Acquired absence of other specified parts of digestive tract; Z79.85 Long-term (current) use of injectable non-insulin antidiabetic drugs; Z79.899 Other long term (current) drug therapy
CPT/HCPCS: 71046; 80053; 82947; 83735; 84484; 85025; 87635; 93005; 99283

== ENCOUNTER → 2022-11-27 18:56 | Outpatient (BNV) | payer OTHER, SELFPAY | PROVIDERS: Emergency Provider Internal Medicine; PCP Physician Assistant; Visit Provider Internal Medicine Cardiovascular Disease | DX: R00.2 Palpitations (principal); R94.31 Abnormal electrocardiogram [ECG] [EKG] | CPT/HCPCS: 93010 ==

== ENCOUNTER 2022-12-22 13:58 | Outpatient (REF) | payer OTHER, SELFPAY ==
[2022-12-22 14:55] LABS: Hemoglobin 13.6 g/dl (12.0-16.0); Mean Corpuscular HGB Conc 32.4 g/dl (31.0-35.0); Mean Corpuscular Hemoglobin 27.7 pg (27.0-33.0); Mean Corpuscular Volume 85.5 fL (80.0-98.0); Mean Platelet Volume 11.3 fL (9.4-12.3); Platelet Count 278 X10*3/uL (160-400); Red Blood Count 4.91 X10*6/uL (4.20-5.50); Red Cell Distribution Width 12.9 % (11.0-16.0); White Blood Count 9.5 X10*3/uL (4.8-10.8)
[2022-12-22 15:09] LABS: Estimated Average Glucose 128 mg/dL; Hemoglobin A1c % 6.1 % (<6.0)
[2022-12-22 16:18] LABS: Alanine Aminotransferase 41 U/L (0-31); Albumin Level 4.3 g/dL (3.5-5.0); Alkaline Phosphatase 78 U/L (39-117); Anion Gap 15 (12-20); Aspartate Amino Transferase 33 U/L (5-31); Bilirubin Total 0.6 mg/dL (0.0-1.0); Blood Urea Nitrogen 9 mg/dL (9-16); Calcium 9.9 mg/dL (8.4-10.2); Carbon Dioxide 23 mmol/L (22-29); Chloride 106 mmol/L (96-108); Cholesterol 134 mg/dL (<200); Estimated Glomerular Filt Rate > 60; Glucose Fasting 96 mg/dL (60-99); HDL Cholesterol 49 mg/dL (>40); LDL Cholesterol Calculated 75 mg/dL (<100); Potassium 4.1 mmol/L (3.3-5.1); Sodium 140 mmol/L (135-145); Total Protein 7.6 g/dL (6.5-8.0); Triglycerides 52 mg/dL (<150)
[2022-12-23 14:26] LABS: HBS Num1 5.72 mIU/mL (0-7.99); HBc Num1 0.07 S/CO (0.00-0.79); Hepatitis B Core Antibody Nonreactive (Nonreactive); Hepatitis B Surface Antigen Negative (Negative); ~HepC Num1 0.08 S/CO (0.00-0.79); ~Hepatitis B Surface Antibody NONREACTIVE (Nonreactive); ~Hepatitis C Antibody Nonreactive (Nonreactive)
== END 2022-12-22 13:59 | disposition home or self-care (01) ==
LOC: HO.LAB 13:58
PROVIDERS: PCP Physician Assistant; Visit Provider Physician Assistant
DX: E78.00 Pure hypercholesterolemia, unspecified (principal); E11.9 Type 2 diabetes mellitus without complications
CPT/HCPCS: 36415; 80053; 80061; 83036; 85027; 86704; 86706; 86803; 87340

== ENCOUNTER 2022-12-27 13:43 | Outpatient (AMB) | payer OTHER, SELFPAY ==
--- NOTE | 2021-12-28 10:04 | A.OFFVIS_ITS ---
Intake Vital Signs 12/27/22 14:04 Height 5 ft Weight 196 lb BMI 38.3 BP 102/74 Intake Visit Reasons: Annual House Registry Rn Required: No Information Interpreted: non-clinical & clinical Rug Cleaner Hand: Rug Cleaner Hand Present ([place]) Allergies acetaminophen [Lortab] Adverse Reaction (Unknown, Verified 12/27/22 14:07) Unknown hydrocodone [Lortab] Adverse Reaction (Unknown, Verified 12/27/22 14:07) Unknown metformin Adverse Reaction (Unknown, Verified 12/27/22 14:07) Unknown Is last menstrual period known: No (Mirena) Post menopausal: No HPI HPI Comments History of Present Illness Details Presenting for annual exam. Complaining of facial hair growth of many years duration. The patient is to have oligomenorrhea but has developed amenorrhea since Mirena IUD insertion over the last week. No nipple discharge Last Pap/HPV was negative in 01/12 [facility] Medical History Arthritis Diabetes Surgical History History of cholecystectomy Hx of tonsillectomy Family History Father Medical history unknown Mother Diabetes Schizophrenia Maternal Uncle Hypertension Myocardial infarction Family/Other Diabetes Cancer Maternal Grandfather Aneurysm Brother No problems noted. Brother No problems noted. Sister No problems noted. 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 Sexual orientation: Straight/Heterosexual Gender identity: Female Cognitive needs: No Hearing needs: No Vision needs: No Female Reproductive History Menstrual Age of Menarche: 11 control method: progestin IUCD Total pregnancies: 0 Date of last pap smear: 12/23/21 (negative) Review of Systems Const All systems reviewed & are unremarkable except as noted in HPI and below Card Reports as per HPI Resp Reports as per HPI GI Reports as per HPI and Reports no additional complaints Reports as per HPI Physical Exam Vital Signs: Last Vital Signs BP 102/74 12/27/22 14:04 BMI result Body Mass Index 38.3 Const General: cooperative, healthy appearing and comfortable Chest Chest palpation & inspection: normal inspection of the chest and normal palpation of entire chest wall Breast/axilla inspection: normal inspection of the breasts and normal inspection of the axillae Breast/axilla palpation: normal palpation of the breasts, normal palpation of the axillae and no axillary lymphadenopathy Resp Effort & Inspection: normal respiratory effort Auscultation: clear to auscultation bilaterally Percussion: percussion normal Cardio Palpation: normal PMI Rate: regular rate Rhythm: regular rhythm Heart sounds: no murmurs and no rubs Peripheral pulses: Peripheral pulses 2+ throughout GI Inspection: Yes normal to inspection Palpation (GI): Soft to palpation, nontender, no guarding, not rigid and No hepatosplenomegaly present Percussion: Yes normal to percussion Auscultation: normal bowel sounds Rectal Exam - Female: deferred General: Yes bladder normal to palpation External Female Exam: No lesion Speculum Exam - Vagina: normal appearance of the vagina, normal palpation, normal vaginal discharge and not erythematous Speculum Exam - Cervix: normal appearance of the cervix and normal palpation Bimanual exam- vagina & uterus: normal bimanual exam, normal palpation, uterine size normal, bladder normal to palpation, consistency normal and normal palpation Bimanual Exam- Adnexa, other: normal adnexae, no masses and no tenderness Assessment & Plan Assessment & Plan (1) Well woman exam: Code(s): Z01.419 - Encounter for gynecological examination (general) (routine) without abnormal findings Plan: Cotesting not indicated this year. Counseled the patient about the recommended dietary allowance of 1000 mg of Calcium & 600 IU of vitamin D. The patient was instructed to perform monthly self-breast exams and to schedule an annual exam in a year; All questions answered and the patient verbalized understanding. Instructed the patient to schedule annual exam in a year (2) Hirsutism: Code(s): L68.0 - Hirsutism Plan: Discussed with the patient the differential diagnosis of hirsutism including idiopathic, ovarian tumor, late onset congenital adrenal hyperplasia, PCOS and other possible causes will start with the w/u and treat accordingly. Total and free testosterone, pre 4 hour urine cortisol, 17 hydroxyprogesterone ordered. Instructions given the patient to schedule a 2 week follow-up appointment. Orders: Orders 17 Hydroxyprogesterone Today L68.0 - Hirsutism Prolactin Today L68.0 - Hirsutism Testosterone, Free/Total Today L68.0 - Hirsutism Thyroid Stimulating Hormone Today L68.0 - Hirsutism Cortisol, Free 24Hr Urine Today L68.0 - Hirsutism Coding Level of Care Code Est Pt Prev Care 18-39y(85330) Diagnoses Well woman exam Z01.419 Hirsutism L68.0
[2022-12-27 14:04] VITALS: BP 102/74; BMI 38.3
== END 2022-12-27 14:39 | disposition home or self-care (01) ==
PROVIDERS: Visit Provider Obstetrics & Gynecology
DX: Z01.419 Encounter for gynecological examination (general) (routine) without abnormal findings (principal); L68.0 Hirsutism
CPT/HCPCS: 99395

== ENCOUNTER 2022-12-27 13:43 | Outpatient (REF) | payer OTHER, SELFPAY ==
[2022-12-27 17:11] LABS: Thyroid Stimulating Hormone 0.99 uIU/mL (0.32-4.0)
[2022-12-29 02:48] LABS: Prolactin 8.6 ng/mL
[2023-01-01 15:03] LABS: Testosterone, Free 4.8 pg/mL (0.1-6.4); Testosterone, Total 48 ng/dL (2-45)
== END 2022-12-27 13:44 | disposition home or self-care (01) ==
LOC: HO.LAB 13:43
PROVIDERS: Visit Provider Obstetrics & Gynecology
DX: L68.0 Hirsutism (principal)
CPT/HCPCS: 36415; 83498; 84146; 84402; 84403; 84443

== ENCOUNTER 2022-12-29 10:53 | Outpatient (REF) | payer OTHER, SELFPAY ==
[2023-01-04 08:54] LABS: Cortisol Free, 24 Hr Urine 56.8 mcg/24 h (4.0-50.0); Creatinine, 24 Hr Urine 0.76 g/24 h (0.50-2.15); Total Volume, 24 Hr Urine 475 mL
== END 2022-12-29 10:54 | disposition home or self-care (01) ==
LOC: HO.LNP 10:53
PROVIDERS: Visit Provider Obstetrics & Gynecology
DX: L68.0 Hirsutism (principal)
CPT/HCPCS: 82530

== ENCOUNTER 2023-01-01 09:54 | Outpatient (AMB) | payer OTHER, SELFPAY ==
--- NOTE | 2023-01-01 10:17 | AM.OFFVISNUR ---
Intake Intake Visit Reasons: Hep B vaccine Allergies acetaminophen [Lortab] Adverse Reaction (Unknown, Verified 12/27/22 14:07) Unknown hydrocodone [Lortab] Adverse Reaction (Unknown, Verified 12/27/22 14:07) Unknown metformin Adverse Reaction (Unknown, Verified 12/27/22 14:07) Unknown Immunizations Recombivax HB (PF) 10 mcg/mL intramuscular suspension Performing Provider: Victor Manuel Marinelli PA-C [place] [facility] Administered by: Bea Knowles RN on 01/01/23 10:27 Dose Route Admin Location Dispensed Lot Number Expiration Date NDC [employer] 1 mL IM Left Deltoid 1 mL [id number] 09/23/23 [id number] [employer] VIS Given Date VIS Provided VIS Publication Date 01/01/23 Single Vaccine 22 Eligibility Eligibility Date Funding Source Not [facility] Eligible 01/01/23 Private Coding Assessment & Plan Assessment & Plan Orders: Orders Hepatitis B Adult Immunization Today Z23 - Encounter for immunization
== END 2023-01-01 10:35 | disposition home or self-care (01) ==
PROVIDERS: PCP Physician Assistant; Visit Provider Physician Assistant
DX: Z23 Encounter for immunization (principal)
CPT/HCPCS: 90471; 90746

== ENCOUNTER 2023-01-17 13:01 | Outpatient (AMB) | payer OTHER, SELFPAY ==
[2023-01-17 13:30] VITALS: BP 110/76; BMI 38.3
--- NOTE | 2023-01-17 13:30 | MHC.OFFVIS ---
Intake Vital Signs 01/17/23 13:30 Height 5 ft Weight 196 lb BMI 38.3 BP 110/76 Intake Visit Reasons: Lab follow up Collar Trimmer Required: No Allergies acetaminophen [Lortab] Adverse Reaction (Unknown, Verified 01/17/23 13:31) Unknown hydrocodone [Lortab] Adverse Reaction (Unknown, Verified 01/17/23 13:31) Unknown metformin Adverse Reaction (Unknown, Verified 01/17/23 13:31) Unknown Post menopausal: No HPI HPI Comments History of Present Illness Details Presenting for follow-up regarding a menorrhea/oligomenorrhea with hirsutism. The following workup was done: TSH, prolactin, hCG were within normal. 17 hydroxyprogesterone within normal Total Testosterone mildly elevated, free testosterone within normal Last co testing was negative in 01/12 The patient has been on Mirena IUD for the last year [facility] Medical History Diabetes Arthritis Surgical History Hx of tonsillectomy History of cholecystectomy Family History Father Medical history unknown Mother Diabetes Schizophrenia Maternal Uncle Hypertension Myocardial infarction Family/Other Diabetes Cancer Maternal Grandfather Aneurysm Brother No problems noted. Brother No problems noted. Sister No problems noted. 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 Sexual orientation: Straight/Heterosexual Gender identity: Female Cognitive needs: No Hearing needs: No Vision needs: No Female Reproductive History Menstrual Age of Menarche: 11 Date of last pap smear: 12/23/21 (Negative) Review of Systems Const All systems reviewed & are unremarkable except as noted in HPI and below Reports as per HPI and Reports no additional complaints GI Reports no additional complaints Reports no additional complaints Physical Exam Vital Signs: Last Vital Signs BP 110/76 01/17/23 13:30 BMI result Body Mass Index 38.3 Assessment & Plan Assessment & Plan (1) PCOS (polycystic ovarian syndrome): Comment: On Mirena IUD Code(s): E28.2 - Polycystic ovarian syndrome Plan: Discussed with the patient the results of her blood work included TSH, prolactin, testosterone, 17 hydroxyprogesterone, pointing toward a diagnose of prostatic ovarian syndrome. Explained to the patient that she has a diagnosis of PCOS. D/w the patient the association of PCOS with an increase in the risk of diabetes (the patient has already the diagnosis), heart disease, hypercholesterolemia and metabolic syndrome, endometrial hyperplasia and/or cancer if untreated and an increase in the risk of breast cancer. Recommended for the patient the following: -To call her pcp to screen for cardiovascular risk and manage diabetes in addition to cholesterol, lipids, HDL and LDL. -Instructions given to patient to increase exercise combined with dietary changes reduce the risk of diabetes, explained to the patient that reduction in body weight has been associated with improved rate and decreased hirsutism as well as improvement in glucose tolerance and lipid levels -the patient is on Mirena IUD, explained to the patient that this will reduce the risk of endometrial pathology an will help treat abnormal uterine bleeding secondary to anovulation from PCOS . Recommended EMB to rule out endometrial pathology coding endometrial hyperplasia and/or malignancy, instructions given the patient to schedule EMB appointment in 2 weeks Coding Level of Care Code Est Pt Level 3 (40859) Diagnoses PCOS (polycystic ovarian syndrome) E28.2
== END 2023-01-17 14:15 | disposition home or self-care (01) ==
PROVIDERS: PCP Physician Assistant; Visit Provider Obstetrics & Gynecology
DX: E28.2 Polycystic ovarian syndrome (principal)
CPT/HCPCS: 99213

== ENCOUNTER → 2023-01-17 13:01 | Outpatient (BNVA) | payer OTHER, SELFPAY | PROVIDERS: PCP Physician Assistant; Visit Provider Obstetrics & Gynecology | DX: E28.2 Polycystic ovarian syndrome (principal) | CPT/HCPCS: 99212 ==

== ENCOUNTER 2023-02-12 13:55 | Outpatient (AMB) | payer OTHER, SELFPAY ==
--- NOTE | 2023-02-12 14:10 | AM.OFFVISNUR ---
Intake Intake Visit Reasons: Hep B vaccine Allergies acetaminophen [Lortab] Adverse Reaction (Unknown, Verified 01/17/23 13:31) Unknown hydrocodone [Lortab] Adverse Reaction (Unknown, Verified 01/17/23 13:31) Unknown metformin Adverse Reaction (Unknown, Verified 01/17/23 13:31) Unknown Immunizations Engerix-B (PF) 20 mcg/mL intramuscular suspension Performing Provider: Victor Manuel Marinelli PA-C [facility] Administered by: Trace Duque RN on 02/12/23 14:00 Dose Route Admin Location Dispensed Lot Number Expiration Date NDC Work Adjustment Instructor 1 mL IM Left Deltoid 1 mL [id number] 09/23/23 08029-537-39 XL Video VIS Given Date VIS Provided VIS Publication Date 02/12/23 Single Vaccine 22 Eligibility Eligibility Date Funding Source Not [facility] Eligible 02/12/23 Private Administration Comments: consented for hep B vaccine dose #2. tolerated well. educated patient about dose #3 to be given 4-6 months from the first dose. Patient will discuss with PCP at next visit which is in two days. Coding Assessment & Plan Assessment & Plan Orders: Orders Hepatitis B Adult Immunization Today Z23 - Encounter for immunization
== END 2023-02-12 14:35 | disposition home or self-care (01) ==
LOC: HO.HMGH 13:55
PROVIDERS: PCP Physician Assistant; Visit Provider Physician Assistant
DX: Z23 Encounter for immunization (principal)
CPT/HCPCS: 90471; 90746

== ENCOUNTER 2023-02-15 13:40 | Outpatient (AMB) | payer OTHER, SELFPAY ==
--- NOTE | 2023-02-15 13:42 | MHC.PC.OV ---
Vital Signs 02/15/23 13:44 Height 5 ft Weight 191 lb 8 oz BMI 37.4 BP 122/62 Blood Pressure Location Lt brachial Position Sitting Pulse 91 Pulse Source Pulse Oximeter Pulse Oximetry (%) 98 Oxygen Delivery Method Room Air Intake Visit Reasons: Annual Exam Intake Note: Patient is here today for a physical. Driver Courier Required: No Marketing Project Manager: Not Required per policy Accompanied by: Self / Same As Patient Allergies acetaminophen [Lortab] Adverse Reaction (Unknown, Verified 02/15/23 13:51) Unknown hydrocodone [Lortab] Adverse Reaction (Unknown, Verified 02/15/23 13:51) Unknown metformin Adverse Reaction (Unknown, Verified 02/15/23 13:51) Unknown Medication List - Last Reconciled 02/15/23 by Victor Manuel Marinelli PA-C albuterol sulfate 90 mcg/actuation 1 inh inhalation QID PRN 30 days atomoxetine (Strattera) 80 mg PO DAILY 30 days blood sugar diagnostic (FreeStyle Lite Strips) Test 3 times Daily blood-glucose meter (FreeStyle Lite Meter kit) Test 3 times Daiy cholecalciferol (vitamin D3) 25 mcg PO DAILY dextromethorphan-guaifenesin 5-100 mg/5 mL (Robitussin Cough-Chest Congestion DM) 10 mL PO Q4-8H PRN 7 days dulaglutide (Trulicity) 0.75 mg (0.5 mL) subcut QWEEK 90 days hydroxyzine HCl 20 mg (2 x 10 mg) PO BEDTIME PRN 30 days ibuprofen 600 mg PO Q8H PRN lancets (FreeStyle Lancets) As directed levonorgestrel (Mirena) intrauterine lorazepam 0.5 mg PO BID PRN 7 days magnesium oxide 400 mg PO .nightly 90 days pen needle, diabetic (BD Ultra-Fine Elizabeth Pen Needle) As directed simvastatin 20 mg PO DAILY Tobacco use date assessed: 02/15/23 Dental Screening Dental Screen Date: 02/15/23 Did you have a dental visit in the last 12 months?: No Did you have a dental problem in the last 6 months where you did not have access to dental care?: No Was dental information given to patient?: No HPI Annual Exam HPI Details Patient is a 37-year-old female here today for a routine annual physical..? patient has a past medical history significant for obesity asthma, type 2 diabetes, generalized anxiety disorder Concerns--> reports recently getting a COVID infection. She reports it was horrible and still has lingering cough and nausea when eating. Has lost weight since last office visit due to her decreased appetite. Will supply patient with anti emetic and anti acid medication. ADHD :? Has followed up with a mental health therapist agrees with a diagnosis of ADD. She continues on Strattera 80 mg with good effect on her focus and attention to detail. Since having COVID she has been having some memory issues. .. Generalized anxiety disorder: Has been having a lot of anxiety lately. Her triggers are her living situation. Has been started on hydroxyzine which she reports works very well for her anxiety. Has been speaking with community navigation. Has been having to use lorazepam on a p.r.n. basis for panic attacks. ? .. ? Type 2 diabetes: Patient currently and Trulicity once a week , most recent fasting blood sugar improved at .? Patient's most recent A1c at 6.5 ? She reports she has been reducing her carbohydrates in her diet over the last 3 months fortunately has not been able to reduce her weight.? She feels she has a problem with always being hungry and is unsure of what to snack on.? .. Hyperlipidemia:? Patient continues to be compliant with statin therapy.? Most recent LDL acceptable.? Have noted elevations in her liver enzymes thus will reduce her statin potency. ? Will continue current statin therapy .. 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 Recently diagnosed with PCOS. Vaccines: Up-to-date with COVID vaccine, flu vaccine, pneumonia vaccine and tetanus vaccine Laboratory Tests 12/22/22 12/27/22 14:16 14:46 RBC 4.91 Cholesterol 134 LDL Cholesterol, C alc 75 Total Testosterone 48 H PFSH Medical History Diabetes Arthritis Surgical History Hx of tonsillectomy History of cholecystectomy Family History Father Medical history unknown Mother Diabetes Schizophrenia Maternal Uncle Hypertension Myocardial infarction Family/Other Diabetes Cancer Maternal Grandfather Aneurysm Brother No problems noted. Brother No problems noted. Sister No problems noted. 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 Lucio Chen, Chante Kramer, Forest Roldan and colleagues, with an educational reema from [employer]. Review of Systems Const Denies body aches, Denies chills, Denies excessive sweating, Reports fatigue, Denies fever(s) and Denies headache(s) Eyes Denies blurry vision ENT Denies dysphagia, Denies vertigo, Denies dizziness, Denies headache(s), Denies hearing loss and Denies tinnitus Card Denies chest pain, Denies chest pain with activity, Denies syncope, Denies irregular heart rhythm and Denies dyspnea Resp Denies chest congestion, Denies cough, Denies hemoptysis, Denies dyspnea and Denies wheezing GI Denies abdominal pain, Denies melena, Denies hematochezia, Denies coffee ground emesis, Denies dysphagia, Denies diarrhea, Denies nausea and Denies vomiting Denies urinary frequency, Denies dysuria, Denies urinary hesitancy and Denies urinary urgency Musc Denies arthralgias, Denies limited range of motion, Denies muscle cramps and Denies muscle weakness Skin/Breast Denies rash and Denies skin ulcer Neuro Denies Abnormal speech present, Denies confusion, Denies vertigo, Denies dizziness, Denies syncope, Denies headache(s), Denies memory loss and Denies seizure-like activity Psych Denies anxiety, Denies confusion, Denies depression, Denies memory loss, Denies panic attacks and Denies paranoia Endo Denies excessive sweating, Reports fatigue, Denies flushing, Denies polydipsia and Denies polyuria Aller/Immun Denies wheezing Physical exam (Primary Care) BMI result Body Mass Index 37.4 BMI Assessment/Plan discussion: High Tobacco/Smoking Status: Tobacco use Status Tobacco use date assessed 02/15/23 02/15/23 13:44 Patient Tobacco Use Status Never used Tobacco 02/15/23 13:44 Tobacco use type Cigarette 02/15/23 13:44 e-Cigarette/Vaping Use Currently Using 02/15/23 13:44 Thrive Assessment: Date of Thrive Assessment Date Thrive assessed 08/15/22 02/15/23 13:44 Const Other: Obese General: cooperative, comfortable, no acute distress, alert and awake; No confusion Orientation/consciousness: oriented to person, oriented to place, patient oriented x3 and No confusion HENMT Head: Yes normocephalic Ears: external ears normal and TM's normal bilaterally Face and sinus: No sinus tenderness Mouth: Normal oral and palatal mucosa present and tongue normal Teeth and gingiva: dentition normal and gingiva normal Throat: Yes posterior oropharynx normal, Yes tonsils normal and Yes uvula midline Eyes Conjunctivae: conjunctivae normal Sclerae: sclerae normal Pupils: Equal, round and reactive pupils present EOM: EOMs intact bilaterally Direct Ophthalmoscopy: No no photophobia Neck Neck: Yes no lymphadenopathy, No tender and Yes no JVD Thyroid: Thyroid normal Carotids: no bruits Chest Chest palpation & inspection: no tenderness Resp Effort & Inspection: normal respiratory effort, no audible wheezes, not labored and no stridor Auscultation: no crackles, no rales, no rhonchi and no wheezes Cardio Jugular venous distension: no JVD Rate: regular rate, not bradycardic and not tachycardic Rhythm: regular rhythm Bruits: no carotid bruits Peripheral pulses: Peripheral pulses 2+ throughout GI Inspection: Yes normal to inspection, No abdominal wall ecchymosis and No visible herniation Palpation (GI): Soft to palpation, nontender, no guarding, not rigid and No hepatosplenomegaly present Auscultation: normoactive bowel sounds General: Yes no CVA tenderness Back/Spine/Pelvis Back: no CVA tenderness and No back tenderness Cervical Spine: cervical ROM normal Thoracic/Lumbar Spine: thoracic and lumbar spine normal to inspection, straight leg raise negative bilaterally, No thoraco-lumbar ROM limited and No lumbar spinal tenderness Skin Lesions: no lesions Rashes: no rashes Wounds: no wounds Neuro General: oriented to person, oriented to place, patient oriented x3, CN's II-XI intact bilaterally and No confusion Cranial nerves: Yes Equal, round and reactive pupils present and Yes Normal accommodation reflex present Cognition (Neuro): normal cognition Speech: No Abnormal speech present Gait exam (Neuro): Normal gait present Motor exam (neuro): 5/5 motor strength present throughout Extrem Right upper extremity: full ROM; no cyanosis Left upper extremity: full ROM; no cyanosis Right lower extremity: no edema Left lower extremity: no edema Psych Appearance: grossly normal Mental Status: mental status grossly normal Affect: normal affect Attitude: cooperative Thought process: Normal thought process present Assessment and Plan Assessment & Plan (1) Annual physical exam: Code(s): Z00.00 - Encounter for general adult medical examination without abnormal findings (2) DMII (diabetes mellitus, type 2): Code(s): E11.9 - Type 2 diabetes mellitus without complications Qualifiers: Diabetes mellitus superintendent [employer] insulin use: without superintendent marine oil [employer] use Diabetes mellitus complication status: without complication Qualified Code(s): E11.9 - Type 2 diabetes mellitus without complications Plan: Patient's type 2 diabetes controlled with A1c at 6.5. Will increase his Trulicity dose to 1.5 mg weekly for more weight loss. Goal A1c is to remain below 6.5 (3) ADHD: Code(s): F90.9 - Attention-deficit hyperactivity disorder, unspecified type Qualifiers: Attention deficit-hyperactivity disorder type: predominantly inattentive Qualified Code(s): F90.0 - Attention-deficit hyperactivity disorder, predominantly inattentive type Plan: Patient reports her ADHD a has been confirmed with her and her mental health therapist. She would like a higher dose of the Strattera 80 mg for better focus. (4) HLD (hyperlipidemia): Code(s): E78.5 - Hyperlipidemia, unspecified Qualifiers: Hyperlipidemia type: pure hypercholesterolemia Qualified Code(s): E78.00 - Pure hypercholesterolemia, unspecified Plan: Patient's most recent fasting lipid panel showing acceptable total cholesterol and LDL. Have noted elevated liver enzymes thus will decrease her statin potency. Goal LDL to be below 100 (5) Obese: Code(s): E66.9 - Obesity, unspecified Qualifiers: Obesity type: due to excess calories Obesity classification: adult class 2 (BMI 35 - 39.9) Serious obesity comorbidity presence: with serious comorbidity Body mass index: BMI 38.0-38.9 Qualified Code(s): E66.01 - Morbid (severe) obesity due to excess calories; Z68.38 - Body mass index [BMI] 38.0-38.9, adult Plan: Patient does understand her BMI remains above 30 will continue working on lifestyle modifications to reduce her weight (6) Elevated liver enzymes: Code(s): R74.8 - Abnormal levels of other serum enzymes Plan: Noted elevations in her liver enzymes ? Fatty liver disease verses side effect of statin. Will reduce her simvastatin dose to 20 mg. Will also order ultrasound of abdomen to evaluate for fatty liver disease (7) Panic anxiety syndrome: Code(s): F41.0 - Panic disorder [episodic paroxysmal anxiety] Plan: Has been resolving since she has changed her living situation. Continues to use hydroxyzine for her anxiety which has been helpful. Does have lorazepam available for her panic attacks. (8) Nausea: Code(s): R11.0 - Nausea Plan: Likely secondary to gastritis from viral illness. Will supply patient with antiemetic. Orders: Orders Lipid Panel Today E78.00 - Pure hypercholesterolemia, unspecified Comprehensive [place]. Panel Fast Today E11.9 - Type 2 diabetes mellitus without complications Complete Blood Count no Diff Today E11.9 - Type 2 diabetes mellitus without complications Microalbumin, Random (w Creat) Today E11.9 - Type 2 diabetes mellitus without complications Hemoglobin A1c Today E11.9 - Type 2 diabetes mellitus without complications Medications: New dulaglutide (Trulicity) 1.5 mg (0.5 mL) subcut QWEEK 4 weeks 2 mL 3RF E11.9 - Type 2 diabetes mellitus without complications ondansetron 8 mg PO Q12H 7 days 14 tabs 0RF R11.0 - Nausea omeprazole 20 mg PO DAILY 14 days 14 caps 0RF R11.0 - Nausea Discontinued dulaglutide (Trulicity) Discontinued Reason: Doctor's Order 0.75 mg (0.5 mL) subcut QWEEK 90 days 6.5 mL 0RF dextromethorphan-guaifenesin 5-100 mg/5 mL (Robitussin Cough-Chest Congestion DM) Discontinued Reason: Change Referral Type 10 mL PO Q4-8H 7 days PRN 118 mL 0RF cough Coding Level of Care Code Est Pt Prev Care 18-39y(85317) Diagnoses Annual physical exam Z00.00 Type 2 diabetes mellitus without complication, without long-term current use of insulin E11.9 Diabetes mellitus shelter insulin use: without superintendent marine oil terminal use Diabetes mellitus complication status: without complication Attention deficit hyperactivity disorder (ADHD), predominantly inattentive type F90.0 Attention deficit-hyperactivity disorder type: predominantly inattentive Pure hypercholesterolemia E78.00 Hyperlipidemia type: pure hypercholesterolemia Class 2 severe obesity due to excess calories with serious comorbidity and body mass index (BMI) of 38.0 to 38.9 in adult E66.01; Z68.38 Obesity type: due to excess calories Obesity classification: adult class 2 (BMI 35 - 39.9) Serious obesity comorbidity presence: with serious comorbidity Body mass index: BMI 38.0-38.9 Elevated liver enzymes R74.8 Panic anxiety syndrome F41.0 Nausea R11.0
[2023-02-15 13:44] VITALS: BP 122/62; PULSE 91; O2SAT 98; BMI 37.4
== END 2023-02-15 14:12 | disposition home or self-care (01) ==
PROVIDERS: Visit Provider Physician Assistant
DX: Z00.00 Encounter for general adult medical examination without abnormal findings (principal); E11.9 Type 2 diabetes mellitus without complications; E66.01 Morbid (severe) obesity due to excess calories; Z68.38 Body mass index [BMI] 38.0-38.9, adult; F90.0 Attention-deficit hyperactivity disorder, predominantly inattentive type; E78.00 Pure hypercholesterolemia, unspecified; R74.8 Abnormal levels of other serum enzymes; F41.0 Panic disorder [episodic paroxysmal anxiety]; R11.0 Nausea
CPT/HCPCS: 99395

== ENCOUNTER 2023-03-08 07:52 | Outpatient (REF) | payer OTHER, SELFPAY | END 2023-03-08 07:53 | disposition home or self-care (01) | LOC: HO.LNP 07:52 | PROVIDERS: PCP Physician Assistant; Visit Provider Obstetrics & Gynecology | DX: N93.9 Abnormal uterine and vaginal bleeding, unspecified (principal); E28.2 Polycystic ovarian syndrome; Z32.02 Encounter for pregnancy test, result negative | CPT/HCPCS: 58100; 81025; 88305 ==

== ENCOUNTER 2023-03-08 07:52 | Outpatient (AMB) | payer OTHER, SELFPAY ==
[2023-03-08 08:06] VITALS: BP 112/70; BMI 37.0
--- NOTE | 2023-03-08 08:06 | MHC.OFFVIS ---
Intake Vital Signs 03/08/23 08:06 Height 5 ft Weight 189 lb 9.561 oz BMI 37.0 BP 112/70 Intake Visit Reasons: EMB Unbundler Required: No Information Interpreted: non-clinical & clinical Early Childhood Education Coordinator: Early Childhood Education Coordinator Present (Soledad Kunz WISAM) Accompanied by: Self / Same As Patient Allergies acetaminophen [Lortab] Adverse Reaction (Unknown, Verified 03/08/23 08:07) Unknown hydrocodone [Lortab] Adverse Reaction (Unknown, Verified 03/08/23 08:07) Unknown metformin Adverse Reaction (Unknown, Verified 03/08/23 08:07) Unknown Is last menstrual period known: No (Mirena) PFSH Medical History Diabetes Arthritis Surgical History Hx of tonsillectomy History of cholecystectomy Family History Father Medical history unknown Mother Diabetes Schizophrenia Maternal Uncle Hypertension Myocardial infarction Family/Other Diabetes Cancer Maternal Grandfather Aneurysm Brother No problems noted. Brother No problems noted. Sister No problems noted. Other Mental health disorder Substance use disorder Social History Household Members: Family Housing: House Alcohol intake: current Alcohol intake frequency: holidays/special occasions only Patient Tobacco Use Status: Never used Tobacco Tobacco use type: Cigarette e-Cigarette/Vaping Use: Former Use Second Hand Smoke Exposure: No Substance Use Type: Marijuana service: No Current occupational status: employed Current occupation: [employer] Sexual orientation: Straight/Heterosexual Gender identity: Female Cognitive needs: No Hearing needs: No Vision needs: No Female Reproductive History Menstrual Age of Menarche: 11 Physical Exam Vital Signs: Last Vital Signs BP 112/70 03/08/23 08:06 BMI result Body Mass Index 37.0 Office Procedures Endometrial Biopsy Details: The patient was counseled regarding the indication and benefits of endometrial sampling to rule out endometrial pathology including not limited to endometrial hyperplasia or endometrial cancer and others; The alternatives (Either do nothing vs. hysteroscopy D&C) & the risks were discussed with the patient including but not limited: pain, uterine perforation, bleeding, infection, possible injury to bladder, bowel, ureter, possible need for blood transfusion with all its possible risks. The patient verbalized understanding all questions answered and signed consent. Urine test and office was negative The patient was placed into the dorsal lithotomy position; a speculum was inserted in the vagina. Using aseptic technique for the procedure, the cervix was cleansed with Betadine. The anterior lip of the cervix was grasped with a single tooth tenaculum. The uterus was sounded to 7 cm with a 4 mm Pipelle was used. Tissues samples were obtained and placed in formalin, in a patient labeled container and sent to the pathology department. At the end of the procedure, there was minimal bleeding noted The patient tolerated the procedure well and was discharged in good condition with the following instructions: Nothing in the vagina until the bleeding stops. No sex until the bleeding stops, to call if any of the following occurs: fever (>100.4), flu-like symptoms, abdominal pain, heavy bleeding, four smelling vaginal discharge. The patient was instructed to schedule a Follow up appointment in 2 weeks to discuss pathology results of the biopsy and treatment options. This note was generated with a voice recognition program. Some errors may have been overlooked during the review of this note. Sometimes these errors may affect the content or meaning of a given sentence. [id number] Biopsy Results AMB Test Urine AMB Test Urine Negative Last Edit by Soledad Kunz CMA on 03/08/23 08:08 Results Reviewed Results Reviewed: Laboratory Last Values Tst Clinic Negative 03/08/23 08:08 Assessment & Plan Assessment & Plan Orders: Orders AMB HCG Urine Test Today Z32.02 - Encounter for test, result negative AMB Endometrial Biopsy Today E28.2 - Polycystic ovarian syndrome Coding Level of Care Code Procedure Only CPT Codes Endometrial Biopsy - CPT: 49618-[id number] Biopsy ([id number])
== END 2023-03-08 08:35 | disposition home or self-care (01) ==
PROVIDERS: PCP Physician Assistant; Visit Provider Obstetrics & Gynecology
DX: N93.9 Abnormal uterine and vaginal bleeding, unspecified (principal); Z32.02 Encounter for pregnancy test, result negative
CPT/HCPCS: 58100

== ENCOUNTER 2023-05-03 12:00 | Outpatient (AMB) | payer OTHER, SELFPAY ==
--- NOTE | 2023-05-03 12:01 | MHC.OFFVIS ---
Intake Vital Signs 05/03/23 12:03 Height 5 ft Weight 189 lb 9.561 oz BMI 37.0 BP 124/74 Intake Visit Reasons: EMB Result Allergies acetaminophen [Lortab] Adverse Reaction (Unknown, Verified 03/08/23 08:07) Unknown hydrocodone [Lortab] Adverse Reaction (Unknown, Verified 03/08/23 08:07) Unknown metformin Adverse Reaction (Unknown, Verified 03/08/23 08:07) Unknown HPI HPI Comments History of Present Illness Details The patient is presenting after endometrial biopsy. The patient has no complaints, no vaginal bleeding, no feverishness chills or abdominal pain. The following workup was done : TSH, prolactin, hCG were within normal. 17 hydroxyprogesterone within normal. Total Testosterone mildly elevated, free testosterone within normal Last co testing was negative in 01/12 Endometrial biopsy pathology showed the following: Scant benign endometrium with inactive glands and decidual stromal change consistent with progestin effect, and benign endocervical glandular and squamous epithelium; no atypia or carcinoma. The patient has been on Mirena IUD for the last year [facility] Medical History Diabetes Arthritis Surgical History Hx of tonsillectomy History of cholecystectomy Family History Father Medical history unknown Mother Diabetes Schizophrenia Maternal Uncle Hypertension Myocardial infarction Family/Other Diabetes Cancer Maternal Grandfather Aneurysm Brother No problems noted. Brother No problems noted. Sister No problems noted. 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 Sexual orientation: Straight/Heterosexual Gender identity: Female Cognitive needs: No Hearing needs: No Vision needs: No Female Reproductive History Menstrual Age of Menarche: 11 Review of Systems Const All systems reviewed & are unremarkable except as noted in HPI and below Reports as per HPI and Reports no additional complaints GI Reports no additional complaints Reports no additional complaints Physical Exam Vital Signs: Last Vital Signs BP 124/74 05/03/23 12:03 BMI result Body Mass Index 37.0 Assessment & Plan Assessment & Plan (1) PCOS (polycystic ovarian syndrome): Comment: On Mirena IUD Code(s): E28.2 - Polycystic ovarian syndrome Plan: Discussed with the patient the results the endometrial biopsy, the patient was reassured. Explained to the patient that she has a diagnosis of PCOS. D/w the patient the association of PCOS with an increase in the risk of diabetes (the patient has already the diagnosis), heart disease, hypercholesterolemia and metabolic syndrome, endometrial hyperplasia and/or cancer if untreated and an increase in the risk of breast cancer. Recommended for the patient the following: -To call her pcp to screen for cardiovascular risk and manage diabetes in addition to cholesterol, lipids, HDL and LDL. -Instructions given to patient to increase exercise combined with dietary changes reduce the risk of diabetes, explained to the patient that reduction in body weight has been associated with improved rate and decreased hirsutism as well as improvement in glucose tolerance and lipid levels -the patient is on Mirena IUD, explained to the patient that this will reduce the risk of endometrial pathology and will help treat abnormal uterine bleeding secondary to anovulation from PCOS (2) Hirsutism: Code(s): L68.0 - Hirsutism Plan: Will refer to reproductive endocrinology for further management Orders: Referrals Reproductive Endocrinology L68.0 - Hirsutism Coding Level of Care Code Est Pt Level 3 (60706) Diagnoses PCOS (polycystic ovarian syndrome) E28.2 Hirsutism L68.0
[2023-05-03 12:03] VITALS: BP 124/74; BMI 37.0
== END 2023-05-03 13:14 | disposition home or self-care (01) ==
LOC: HO.HWS 12:00
PROVIDERS: PCP Physician Assistant; Visit Provider Obstetrics & Gynecology
DX: E28.2 Polycystic ovarian syndrome (principal); L68.0 Hirsutism
CPT/HCPCS: 99213

== ENCOUNTER → 2023-05-03 12:00 | Outpatient (BNVA) | payer OTHER, SELFPAY | PROVIDERS: PCP Physician Assistant; Visit Provider Obstetrics & Gynecology | DX: E28.2 Polycystic ovarian syndrome (principal); L68.0 Hirsutism | CPT/HCPCS: 99212 ==

== ENCOUNTER 2023-05-08 14:39 | Outpatient (REF) | payer OTHER, SELFPAY ==
[2023-05-08 18:50] LABS: CT PCR NOT DETECTED (Not Detect.); NG PCR NOT DETECTED (Not Detect.)
[2023-05-09 13:23] LABS: BV Int Neg Control Negative (Negative); BV Int Pos Control Positive (Positive)
== END 2023-05-08 14:40 | disposition home or self-care (01) ==
LOC: HO.LNP 14:39
PROVIDERS: PCP Physician Assistant; Visit Provider Obstetrics & Gynecology
DX: B00.9 Herpesviral infection, unspecified (principal); N75.0 Cyst of Bartholin's gland
CPT/HCPCS: 0353U; 87255; 87480; 87510; 87660; 99212

== ENCOUNTER 2023-05-08 14:39 | Outpatient (AMB) | payer OTHER, SELFPAY ==
[2023-05-08 14:41] VITALS: BP 121/74; BMI 37.0
--- NOTE | 2023-05-08 14:41 | MHC.OFFVIS ---
Intake Vital Signs 05/08/23 14:41 Height 5 ft Weight 189 lb 9.561 oz BMI 37.0 BP 121/74 Intake Visit Reasons: bartholin cyst Allergies acetaminophen [Lortab] Adverse Reaction (Unknown, Verified 03/08/23 08:07) Unknown hydrocodone [Lortab] Adverse Reaction (Unknown, Verified 03/08/23 08:07) Unknown metformin Adverse Reaction (Unknown, Verified 03/08/23 08:07) Unknown HPI HPI Comments History of Present Illness Details Presenting complaining of left vulvar lesion that is tender that appeared few days ago PFSH Medical History Diabetes Arthritis Surgical History Hx of tonsillectomy History of cholecystectomy Family History Father Medical history unknown Mother Diabetes Schizophrenia Maternal Uncle Hypertension Myocardial infarction Family/Other Diabetes Cancer Maternal Grandfather Aneurysm Brother No problems noted. Brother No problems noted. Sister No problems noted. 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 Sexual orientation: Straight/Heterosexual Gender identity: Female Cognitive needs: No Hearing needs: No Vision needs: No Female Reproductive History Menstrual Age of Menarche: 11 Review of Systems Const All systems reviewed & are unremarkable except as noted in HPI and below Physical Exam Vital Signs: Last Vital Signs BP 121/74 05/08/23 14:41 BMI result Body Mass Index 37.0 General: Yes no CVA tenderness External Female Exam: normal appearance of the urethra and other (Left vulvar tender ulcer) Speculum Exam - Vagina: normal appearance of the vagina, normal palpation, no lesions and no masses Speculum Exam - Cervix: normal appearance of the cervix, normal palpation, no lesions, no masses and nontender Bimanual exam- vagina & uterus: normal bimanual exam, normal palpation, uterine size normal, normal palpation, uterine shape normal, No Cervical tenderness present and non-tender Bimanual Exam- Adnexa, other: normal adnexae Back/Spine/Pelvis Back: no CVA tenderness Assessment & Plan Assessment & Plan (1) Herpes: Code(s): B00.9 - Herpesviral infection, unspecified Plan: Discussed with the patient the findings on physical exam, diagnosis being suspicious for herpes and the mode of transmission. Will rule out other STDs including RPR, hep B and C, HIV, GC and chlamydia and Trichomonas. Valtrex Prescription 1 g p.o. b.i.d. for 10 days for initial outbreak was sent to the patient pharmacy, follow-up in 2 weeks for re-evaluation. all questions answered patient verbalized understanding. Orders: Orders HIV Ab/Ag Today B00.9 - Herpesviral infection, unspecified Hepatitis C Antibody Today B00.9 - Herpesviral infection, unspecified Herpes Virus Culture rflx Type Today B00.9 - Herpesviral infection, unspecified CT NG by PCR Today B00.9 - Herpesviral infection, unspecified Bacterial Vaginosis Panel Today B00.9 - Herpesviral infection, unspecified Syphilis Screen Today B00.9 - Herpesviral infection, unspecified Hepatitis B Surface Antigen Today B00.9 - Herpesviral infection, unspecified Medications: New valacyclovir 1,000 mg PO BID 20 tabs 0RF 10 days Coding Level of Care Code Est Pt Level 3 (42182) Diagnoses Herpes B00.9
== END 2023-05-08 15:34 | disposition home or self-care (01) ==
LOC: HO.HWS 14:39
PROVIDERS: PCP Physician Assistant; Visit Provider Obstetrics & Gynecology
DX: B00.9 Herpesviral infection, unspecified (principal)
CPT/HCPCS: 99213

== ENCOUNTER 2023-05-09 11:26 | Outpatient (REF) | payer OTHER, SELFPAY ==
[2023-05-10 04:18] LABS: Syphilis Screen Nonreactive (Nonreactive)
[2023-05-10 04:31] LABS: HBsAGNum1 0.27 S/CO (0.00-0.99); HIV AB/AG Nonreactive (Nonreactive); HIV Num 1 0.05 S/CO (0.00-0.99); Hepatitis B Surface Antigen Negative (Negative); ~Hepatitis C Antibody Nonreactive (Nonreactive)
== END 2023-05-09 11:27 | disposition home or self-care (01) ==
LOC: HO.LAB 11:26
PROVIDERS: PCP Physician Assistant; Visit Provider Obstetrics & Gynecology
DX: B00.9 Herpesviral infection, unspecified (principal)
CPT/HCPCS: 36415; 86780; 86803; 87340; 87389

== ENCOUNTER 2023-05-23 10:37 | Outpatient (AMB) | payer OTHER, SELFPAY ==
--- NOTE | 2023-05-23 10:41 | MHC.OFFVIS ---
Intake Vital Signs 05/23/23 10:43 Height 5 ft Weight 189 lb 9.561 oz BMI 37.0 Intake Visit Reasons: Follow up Vaginal Allergies acetaminophen [Lortab] Adverse Reaction (Unknown, Verified 03/08/23 08:07) Unknown hydrocodone [Lortab] Adverse Reaction (Unknown, Verified 03/08/23 08:07) Unknown metformin Adverse Reaction (Unknown, Verified 03/08/23 08:07) Unknown HPI HPI Comments History of Present Illness Details Presenting for 2 week follow-up/vulvar inspection for tender vulvar ulcer. The patient took Valtrex and has improved markedly. HSV was positive, HIV, syphilis, hepatitis-B surface antigen, hepatitis-C antibody, GC and chlamydia and Trichomonas all within normal PFSH Medical History Diabetes Arthritis Surgical History Hx of tonsillectomy History of cholecystectomy Family History Father Medical history unknown Mother Diabetes Schizophrenia Maternal Uncle Hypertension Myocardial infarction Family/Other Diabetes Cancer Maternal Grandfather Aneurysm Brother No problems noted. Brother No problems noted. Sister No problems noted. 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 Sexual orientation: Straight/Heterosexual Gender identity: Female Cognitive needs: No Hearing needs: No Vision needs: No Female Reproductive History Menstrual Age of Menarche: 11 Review of Systems Const All systems reviewed & are unremarkable except as noted in HPI and below Physical Exam Vital Signs: BMI result Body Mass Index 37.0 General: Yes no CVA tenderness External Female Exam: normal external appearance and normal appearance of the urethra Speculum Exam - Vagina: normal appearance of the vagina, normal palpation, no lesions and no masses Speculum Exam - Cervix: normal appearance of the cervix, normal palpation, no lesions, no masses and nontender Bimanual exam- vagina & uterus: normal bimanual exam, normal palpation, uterine size normal, normal palpation, uterine shape normal, No Cervical tenderness present and non-tender Bimanual Exam- Adnexa, other: normal adnexae Back/Spine/Pelvis Back: no CVA tenderness Assessment & Plan Assessment & Plan (1) Herpes: Code(s): B00.9 - Herpesviral infection, unspecified Plan: Discussed with the patient the results of HSV, confirming the diagnosis of genital herpes . Valtrex Prescription 500 mg p.o. b.i.d. for 3 days p.r.n. outbreak was sent to the patient pharmacy, discussed with the patient the mode of transmission in measures of prevention. Instructions given the patient to call in case number of her outbreaks are 9 and/or above per year then she will be a candidate for suppressive therapy. All questions answered patient verbalized understanding. Medications: New valacyclovir 500 mg PO BID 6 tabs 0RF 3 days Coding Level of Care Code Est Pt Level 3 (56996) Diagnoses Herpes B00.9
[2023-05-23 10:43] VITALS: BMI 37.0
== END 2023-05-23 16:18 | disposition home or self-care (01) ==
PROVIDERS: PCP Physician Assistant; Visit Provider Obstetrics & Gynecology
DX: B00.9 Herpesviral infection, unspecified (principal)
CPT/HCPCS: 99213

== ENCOUNTER → 2023-05-23 10:37 | Outpatient (BNVA) | payer OTHER, SELFPAY | PROVIDERS: PCP Physician Assistant; Visit Provider Obstetrics & Gynecology | DX: B00.9 Herpesviral infection, unspecified (principal) | CPT/HCPCS: 99212 ==

== ENCOUNTER 2023-06-13 12:52 | Outpatient (REF) | payer OTHER, SELFPAY ==
[2023-06-13 13:55] LABS: Hematocrit 43.1 % (37.0-47.0); Mean Corpuscular HGB Conc 32.5 g/dl (31.0-35.0); Mean Corpuscular Hemoglobin 28.2 pg (27.0-33.0); Mean Corpuscular Volume 86.9 fL (80.0-98.0); Mean Platelet Volume 11.1 fL (9.4-12.3); Platelet Count 326 X10*3/uL (160-400); Red Blood Count 4.96 X10*6/uL (4.20-5.50); Red Cell Distribution Width 13.5 % (11.0-16.0); White Blood Count 7.4 X10*3/uL (4.8-10.8)
[2023-06-13 14:02] LABS: Estimated Average Glucose 140 mg/dL; Hemoglobin A1c % 6.5 % (<6.0)
[2023-06-13 14:19] LABS: Alanine Aminotransferase 34 U/L (0-31); Albumin Level 4.1 g/dL (3.5-5.0); Alkaline Phosphatase 75 U/L (39-117); Anion Gap 14 (12-20); Aspartate Amino Transferase 28 U/L (5-31); Bilirubin Total 0.5 mg/dL (0.0-1.0); Blood Urea Nitrogen 8 mg/dL (9-16); Calcium 9.1 mg/dL (8.4-10.2); Carbon Dioxide 25 mmol/L (22-29); Chloride 105 mmol/L (96-108); Cholesterol 131 mg/dL (<200); Estimated Glomerular Filt Rate > 60; Glucose Fasting 138 mg/dL (60-99); HDL Cholesterol 45 mg/dL (>40); LDL Cholesterol Calculated 70 mg/dL (<100); Sodium 140 mmol/L (135-145); Total Protein 7.7 g/dL (6.5-8.0); Triglycerides 80 mg/dL (<150)
[2023-06-13 16:09] LABS: Creatinine Urine 273.16 mg/dL; Microalbum/Creatinine Ratio Ur 5.8 ug/mg cr (<30)
== END 2023-06-13 12:53 | disposition home or self-care (01) ==
LOC: HO.LAB 12:52
PROVIDERS: PCP Physician Assistant; Visit Provider Physician Assistant
DX: E78.00 Pure hypercholesterolemia, unspecified (principal); E11.9 Type 2 diabetes mellitus without complications
CPT/HCPCS: 36415; 80053; 80061; 82043; 82570; 83036; 85027

== ENCOUNTER 2023-06-19 13:04 | Outpatient (AMB) | payer OTHER, SELFPAY ==
--- NOTE | 2023-06-19 12:59 | A.OFFPC_ITS ---
Vital Signs 06/19/23 13:01 Height 5 ft Weight 212 lb 5 oz BMI 41.5 Intake Visit Reasons: f/u DMII/ HTN Adjusto Writer Operator Required: No Information Interpreted: non-clinical & clinical Strong Nitric Operator: Not Required per policy Accompanied by: Self / Same As Patient Allergies acetaminophen [Lortab] Adverse Reaction (Unknown, Verified 06/19/23 13:21) Unknown hydrocodone [Lortab] Adverse Reaction (Unknown, Verified 06/19/23 13:21) Unknown metformin Adverse Reaction (Unknown, Verified 06/19/23 13:21) Unknown Medication List - Last Reconciled 06/19/23 by Victor Manuel Marinelli PA-C albuterol sulfate 90 mcg/actuation 1 inh inhalation QID PRN 30 days atomoxetine (Strattera) 80 mg PO DAILY 30 days blood sugar diagnostic (FreeStyle Lite Strips) Test 3 times Daily blood-glucose meter (FreeStyle Lite Meter kit) Test 3 times Daiy cholecalciferol (vitamin D3) 25 mcg PO DAILY dulaglutide (Trulicity) mg subcut dulaglutide (Trulicity) 3 mg (0.5 mL) subcut QWEEK 4 weeks hydroxyzine HCl 20 mg (2 x 10 mg) PO BEDTIME PRN 30 days ibuprofen 600 mg PO Q8H PRN lancets (FreeStyle Lancets) As directed levonorgestrel (Mirena) intrauterine lidocaine 5% 1 patch topical DAILY 30 days lorazepam 0.5 mg PO BID PRN 7 days magnesium oxide 400 mg PO .nightly 90 days omeprazole 20 mg PO DAILY 14 days ondansetron 8 mg PO Q12H 7 days pen needle, diabetic (BD Ultra-Fine Elizabeth Pen Needle) As directed simvastatin 20 mg PO DAILY terconazole 0.8% 1 appful vaginal BEDTIME 3 days Tobacco use date assessed: 06/19/23 Dental Screening Dental Screen Date: 06/19/23 Did you have a dental visit in the last 12 months?: Yes Did you have a dental problem in the last 6 months where you did not have access to dental care?: No Was dental information given to patient?: Patient has dentist HPI f/u DMII/ HTN HPI Details Patient is a 37-year-old female here today for a a follow-up visit via telephone only..? patient has a past medical history significant for obesity asthma, type 2 diabetes, generalized anxiety disorder Concerns--> recently diagnosed with herpes simplex due to vaginal swab. ADHD :? Has followed up with a mental health therapist agrees with a diagnosis of ADD. She continues on Strattera 80 mg with good effect on her focus and attention to detail. .. Generalized anxiety disorder: Has been having a lot of anxiety lately. Her triggers are her living situation. Has been started on hydroxyzine which she reports works very well for her anxiety. Has been speaking with [facility]. Has been having to use lorazepam on a p.r.n. basis for panic attacks. ? .. ? Type 2 diabetes: Patient currently and Trulicity 3mg once a week , most recent fasting blood sugar improved at .? Patient's most recent A1c at 6.5 ? She reports she has been reducing her carbohydrates in her diet over the last 3 months fortunately has not been able to reduce her weight.? She feels she has a problem with always being hungry and is unsure of what to snack on.? .. Hyperlipidemia:? Patient continues to be compliant with statin therapy.? Most recent LDL acceptable.? ? Will continue current statin therapy. Of note liver enzymes have stabilized Laboratory Tests 12/22/22 06/13/23 06/13/23 14:16 13:05 13:05 RBC 4.96 Fasting Glucose 138 H Hemoglobin A1c % 6.1 H 6.5 H LDL Cholesterol, C alc 70 Urine Microalbumin 16.0 PFSH Medical History Diabetes Arthritis Surgical History Hx of tonsillectomy History of cholecystectomy Family History Father Medical history unknown Mother Diabetes Schizophrenia Maternal Uncle Hypertension Myocardial infarction Family/Other Diabetes Cancer Maternal Grandfather Aneurysm Brother No problems noted. Brother No problems noted. Sister No problems noted. 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 1. Little interest or pleasure in doing things: not at all 2. Feeling down, depressed, or hopeless: not at all 3. Trouble falling or staying asleep, or sleeping too much: not at all 4. Feeling tired or having little energy: not at all 5. Poor appetite or overeating: not at all 6. Feeling bad about yourself - or that you are a failure or have let yourself or your family down: not at all 7. Trouble concentrating on things, such as reading the newspaper or watching television: not at all 8. Moving or speaking so slowly that other people could have noticed. Or the opposite - being so fidgety or restless that you have been moving around a lot more than usual: not at all 9. Thoughts that you would be better off or of hurting yourself in some way: not at all Total score: 0 Depression Screening Interpretation: Negative Depression Screening Done: Yes 16218 - PHQ-9 Billing: Yes Source: Developed by Drs. Lucio Chen, Chante Kramer, Forest Roldan and colleagues, with an educational reema from [employer]. Thrive Questionnaire Date Thrive assessed: 06/19/23 I am a: Patient What is your living situation today?: I have a steady place to live Within the past 12 months, did the food you bought not last and you didn't have the money to get more?: Never true Within the past 12 months, did you worry whether your food would run out before you got money to buy more?: Never true Do you have trouble paying for medicines?: No Do you have trouble getting transportation to medical appointments?: No Do you have trouble paying your heating and electricity bill?: No Do you have trouble taking care of your child, family member or friend?: No Do you have trouble with day-to-day activities such as bathing, preparing meals, shopping, managing finances, etc.?: No Are you currently unemployed and looking for a job?: No Are you interested in more education?: No Please select the resources that you would like help with: None Currently or been in a relationship where the following occur: no concerns reported THRIVE Score: 0 AUDIT C Alcohol Use Questionnaire (AUDIT-C) 1. How often do you have a drink containing alcohol?: Monthly or less 2. How many drinks containing alcohol do you have on a typical day when you are drinking?: 1 or 2 3. How often do you have six or more drinks on one occasion?: Never Total Score: 1 ALBA-7 AMB Questionnaire ALBA-7 Date ALBA - 7 assessed: 06/19/23 Feeling nervous, anxious, or on edge: 2 = More than half the days Not being able to stop or control worryin = Several days Worrying too much about different things: 3 = Nearly every day Trouble relaxin = Nearly every day Being so restless that it is hard to sit still: 2 = More than half the days Becoming easily annoyed or irritable: 2 = More than half the days Feeling afraid as if something awful might happen: 1 = Several days Total ALBA-7 score (0-4 normal; 5-9 mild; 10-14 moderate; 15-21 severe): 14 Source: Developed by Drs. Lucio Chen, Chante Kramer, Forest Roldan and colleagues, with an educational reema from [employer]. ALBA-7 Assessment Billing ALBA-7 Assessment Tool: ALBA-7 Assessment 30326 Review of Systems Const Denies headache(s) Eyes Denies loss of vision ENT Denies vertigo, Denies dizziness, Denies headache(s) and Denies sore throat Card Denies chest pain, Denies leg edema and Denies lightheadedness Resp Denies cough, Denies hemoptysis and Denies wheezing GI Denies abdominal pain, Denies melena, Denies constipation, Denies diarrhea and Denies vomiting Denies urinary frequency, Denies dysuria and Denies urinary urgency Musc Denies arthralgias, Denies joint swelling, Denies numbness and Denies tingling Neuro Denies behavioral changes, Denies vertigo, Denies dizziness, Denies headache(s), Denies loss of vision, Denies memory loss, Denies numbness and Denies tingling Psych Denies anxiety, Denies behavioral changes, Denies depression, Denies memory loss and Denies panic attacks Feliberto/Lymph Denies easy bleeding and Denies easy bruising Aller/Immun Denies wheezing Physical exam (Primary Care) BMI result Body Mass Index 41.5 Tobacco/Smoking Status: Tobacco use Status Tobacco use date assessed 06/19/23 06/19/23 13:04 Patient Tobacco Use Status Never used Tobacco 06/19/23 13:01 Tobacco use type Cigarette 06/19/23 13:01 e-Cigarette/Vaping Use Former Use 06/19/23 13:01 PHQ-9: PHQ-9 Score PHQ-9: Total score 0 06/19/23 13:01 Depression Screening Interpretation: Negative Thrive Assessment: Date of Thrive Assessment Date Thrive assessed 06/19/23 06/19/23 13:01 Currently or been in a relationship where the following occur: no concerns reported Telehealth Telehealth Location of provider rendering services: practice address Location of patient: address on file Patient Identification confirmed using: Name, : Yes Telehealth method: voice only Patient verbally consented to treatment: Yes Patient verbally consented to billing insurance company: Yes Patient informed of any privacy concerns related to visit: Yes Minutes spent on Phone/Video with Pt.: 11 Assessment and Plan Assessment & Plan (1) DMII (diabetes mellitus, type 2): Code(s): E11.9 - Type 2 diabetes mellitus without complications Qualifiers: Diabetes mellitus usp insulin use: without usp use Diabetes mellitus complication status: without complication Qualified Code(s): E11.9 - Type 2 diabetes mellitus without complications Plan: Patient's type 2 diabetes controlled with A1c at 6.5. Will continue Trulicity 3 mg daily. Goal A1c is to remain below 6.5 (2) ADHD: Code(s): F90.9 - Attention-deficit hyperactivity disorder, unspecified type Qualifiers: Attention deficit-hyperactivity disorder type: predominantly inattentive Qualified Code(s): F90.0 - Attention-deficit hyperactivity disorder, predominantly inattentive type Plan: Patient reports her ADHD a has been confirmed with her and her mental health therapist. Will continue on Strattera 80 mg which has been effective on helping her attention and focus. (3) HLD (hyperlipidemia): Code(s): E78.5 - Hyperlipidemia, unspecified Qualifiers: Hyperlipidemia type: pure hypercholesterolemia Qualified Code(s): E78.00 - Pure hypercholesterolemia, unspecified Plan: Patient's most recent fasting lipid panel showing acceptable total cholesterol and LDL. We have decreased the potency of her statin and liver enzymes have stabilized. Goal LDL to be below 100 (4) Elevated liver enzymes: Code(s): R74.8 - Abnormal levels of other serum enzymes Plan: Has resolved since reducing statin potency. (5) Panic anxiety syndrome: Code(s): F41.0 - Panic disorder [episodic paroxysmal anxiety] Plan: Has been resolving since she has changed her living situation. Continues to use hydroxyzine for her anxiety which has been helpful. Does have lorazepam available for her panic attacks. (6) Screening-pulmonary TB: Code(s): Z11.1 - Encounter for screening for respiratory tuberculosis Plan: Reports she needs TB testing for work. Orders: Orders T Spot TB Today Z11.1 - Encounter for screening for respiratory tuberculosis Comprehensive [place]. Panel Fast 3 Months E11.9 - Type 2 diabetes mellitus without complications Complete Blood Count no Diff 3 Months E11.9 - Type 2 diabetes mellitus without complications Coding Level of Care Code Tele Est Pt Level 4 (11882) Diagnoses Type 2 diabetes mellitus without complication, without long-term current use of insulin E11.9 Diabetes mellitus usp insulin use: without usp use Diabetes mellitus complication status: without complication Attention deficit hyperactivity disorder (ADHD), predominantly inattentive type F90.0 Attention deficit-hyperactivity disorder type: predominantly inattentive Pure hypercholesterolemia E78.00 Hyperlipidemia type: pure hypercholesterolemia Elevated liver enzymes R74.8 Panic anxiety syndrome F41.0 Screening-pulmonary TB Z11.1 Additional Codes ALBA-7 Assessment Billing - ALBA-7 Assessment Tool: ALBA-7 Assessment [id number] ([id number])
[2023-06-19 13:01] VITALS: BMI 41.5
== END 2023-06-19 15:50 | disposition home or self-care (01) ==
LOC: HO.HMGH 13:05
PROVIDERS: PCP Physician Assistant; Visit Provider Physician Assistant
DX: E11.9 Type 2 diabetes mellitus without complications (principal); E66.01 Morbid (severe) obesity due to excess calories; Z68.41 Body mass index [BMI] 40.0-44.9, adult; F90.0 Attention-deficit hyperactivity disorder, predominantly inattentive type; E78.00 Pure hypercholesterolemia, unspecified; R74.8 Abnormal levels of other serum enzymes; F41.0 Panic disorder [episodic paroxysmal anxiety]; Z11.1 Encounter for screening for respiratory tuberculosis
CPT/HCPCS: 99214

== ENCOUNTER 2023-06-25 12:12 | Outpatient (REF) | payer OTHER, SELFPAY ==
[2023-06-28 00:33] LABS: TS Negative Control Passed; TS Panel A 0; TS Panel B 0; TS Positive Control Passed; TSpotTB Negative (Negative)
== END 2023-06-25 12:13 | disposition home or self-care (01) ==
LOC: HO.LAB 12:12
PROVIDERS: PCP Physician Assistant; Visit Provider Physician Assistant
DX: Z11.1 Encounter for screening for respiratory tuberculosis (principal)
CPT/HCPCS: 36415; 86481

== ENCOUNTER 2023-07-02 09:01 | Outpatient (AMB) | payer OTHER, SELFPAY ==
--- NOTE | 2023-07-02 09:18 | AM.OFFVISNUR ---
Intake Intake Visit Reasons: hep b (3rd dose) Allergies acetaminophen [Lortab] Adverse Reaction (Unknown, Verified 06/19/23 13:21) Unknown hydrocodone [Lortab] Adverse Reaction (Unknown, Verified 06/19/23 13:21) Unknown metformin Adverse Reaction (Unknown, Verified 06/19/23 13:21) Unknown Immunizations Engerix-B (PF) 20 mcg/mL intramuscular syringe Performing Provider: Victor Manuel Marinelli PA-C 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 Coding Assessment & Plan Assessment & Plan Orders: Orders Hepatitis B Adult Immunization Today Z23 - Encounter for immunization
== END 2023-07-02 09:26 | disposition home or self-care (01) ==
PROVIDERS: PCP Physician Assistant; Visit Provider Physician Assistant
DX: Z23 Encounter for immunization (principal)
CPT/HCPCS: 90471; 90746

== ENCOUNTER 2023-10-11 11:29 | Outpatient (REF) | payer OTHER, SELFPAY ==
[2023-10-11 12:59] LABS: Hematocrit 40.2 % (37.0-47.0); Hemoglobin 13.4 g/dl (12.0-16.0); Mean Corpuscular HGB Conc 33.3 g/dl (31.0-35.0); Mean Corpuscular Hemoglobin 28.5 pg (27.0-33.0); Mean Corpuscular Volume 85.4 fL (80.0-98.0); Mean Platelet Volume 11.4 fL (9.4-12.3); Platelet Count 271 X10*3/uL (160-400); Red Blood Count 4.71 X10*6/uL (4.20-5.50); Red Cell Distribution Width 13.2 % (11.0-16.0); White Blood Count 8.1 X10*3/uL (4.8-10.8)
[2023-10-11 13:47] LABS: Alanine Aminotransferase 28 U/L (0-31); Albumin Level 3.9 g/dL (3.5-5.0); Alkaline Phosphatase 73 U/L (39-117); Anion Gap 13 (12-20); Aspartate Amino Transferase 24 U/L (5-31); Bilirubin Total 0.6 mg/dL (0.0-1.0); Blood Urea Nitrogen 7 mg/dL (9-16); Carbon Dioxide 24 mmol/L (22-29); Chloride 106 mmol/L (96-108); Estimated Glomerular Filt Rate > 60; Glucose Fasting 103 mg/dL (60-99); Sodium 139 mmol/L (135-145); Total Protein 7.1 g/dL (6.5-8.0)
== END 2023-10-11 11:30 | disposition home or self-care (01) ==
LOC: HO.LAB 11:29
PROVIDERS: PCP Physician Assistant; Visit Provider Physician Assistant
DX: E11.9 Type 2 diabetes mellitus without complications (principal)
CPT/HCPCS: 36415; 80053; 85027

== ENCOUNTER 2023-10-16 10:12 | Outpatient (AMB) | payer OTHER, SELFPAY ==
[2023-10-16 10:30] VITALS: BP 134/82; PULSE 99; O2SAT 99; BMI 41.4
--- NOTE | 2023-10-16 10:30 | MHC.PC.OV ---
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 Required: No Accompanied by: Self / Same As Patient Allergies acetaminophen [Lortab] Adverse Reaction (Unknown, Verified 10/16/23 10:44) Unknown hydrocodone [Lortab] Adverse Reaction (Unknown, Verified 10/16/23 10:44) Unknown metformin Adverse Reaction (Unknown, Verified 10/16/23 10:44) Unknown Medication List - Last Reconciled 10/16/23 by Victor Manuel Marinelli PA-C albuterol sulfate 90 mcg/actuation 1 inh inhalation QID PRN 30 days atomoxetine (Strattera) 80 mg PO DAILY 30 days blood sugar diagnostic (FreeStyle Lite Strips) Test 3 times Daily blood-glucose meter (FreeStyle Lite Meter kit) Test 3 times Daiy cholecalciferol (vitamin D3) 25 mcg PO DAILY dulaglutide (Trulicity) 3 mg (0.5 mL) subcut QWEEK 4 weeks hydroxyzine HCl 20 mg (2 x 10 mg) PO BEDTIME PRN 30 days ibuprofen 600 mg PO Q8H PRN lancets (FreeStyle Lancets) As directed levonorgestrel (Mirena) intrauterine lidocaine 5% 1 patch topical DAILY 30 days lorazepam 0.5 mg PO BID PRN 7 days magnesium oxide 400 mg PO .nightly 90 days omeprazole 20 mg PO DAILY 14 days ondansetron 8 mg PO Q12H 7 days pen needle, diabetic (BD Ultra-Fine Elizabeth Pen Needle) As directed simvastatin 20 mg PO DAILY terconazole 0.8% 1 appful vaginal BEDTIME 3 days Tobacco use date assessed: 06/19/23 Dental Screening Dental Screen Date: 06/19/23 HPI 3 month follow up HPI Details Patient is a 38-year-old female here today for follow-up visit.? patient has a past medical history significant for obesity asthma, type 2 diabetes, generalized anxiety disorder Concerns--> she is pretty discouraged about not losing much weight. She continues on fairly high dose of Trulicity and has gained some glycemic control. She is interested in speaking with bariatric surgery group on surgical options to reduce her weight. ADHD :? Has followed up with a mental health therapist agrees with a diagnosis of ADD. She continues on Strattera 80 mg with good effect on her focus and attention to detail. .. Generalized anxiety disorder: She reports her anxiety has been better controlled. She has in a better living situation in more stable at her job. She has not using any more lorazepam. Does have hydroxyzine available to her as needed as well. ? .. ? Type 2 diabetes: Patient currently and Trulicity 3mg once a week , most recent fasting blood sugar improved at .? Patient's most recent A1c at 6.3 ? She reports she has been reducing her carbohydrates in her diet over the last 3 months fortunately has not been able to reduce her weight.? She feels she has a problem with always being hungry and is unsure of what to snack on.? .. Hyperlipidemia:? Patient continues to be compliant with statin therapy.? Most recent LDL acceptable.? ? Will continue current statin therapy. Of note liver enzymes have stabilized. Laboratory Tests 06/13/23 10/11/23 13:05 11:48 Creatinine 0.68 Fasting Glucose 103 H Cholesterol 131 LDL Cholesterol, C alc 70 PFSH Medical History Diabetes Arthritis Surgical History Hx of tonsillectomy History of cholecystectomy Family History Father Medical history unknown Mother Diabetes Schizophrenia Maternal Uncle Hypertension Myocardial infarction Family/Other Diabetes Cancer Maternal Grandfather Aneurysm Brother No problems noted. Brother No problems noted. Sister No problems noted. 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 Lucio Chen, Chante Kramer, Forest Roldan and colleagues, with an educational reema from [employer]. Review of Systems Const Denies headache(s) Eyes Denies loss of vision ENT Denies vertigo, Denies dizziness, Denies headache(s) and Denies sore throat Card Denies chest pain, Denies leg edema and Denies lightheadedness Resp Denies cough, Denies hemoptysis and Denies wheezing GI Denies abdominal pain, Denies melena, Denies constipation, Denies diarrhea and Denies vomiting Denies urinary frequency, Denies dysuria and Denies urinary urgency Musc Denies arthralgias, Denies joint swelling, Denies numbness and Denies tingling Neuro Denies Abnormal speech present, Denies behavioral changes, Denies vertigo, Denies dizziness, Denies headache(s), Denies loss of vision, Denies memory loss, Denies numbness and Denies tingling Psych Denies anxiety, Denies behavioral changes, Denies depression, Denies memory loss and Denies panic attacks Feliberto/Lymph Denies easy bleeding and Denies easy bruising Aller/Immun Denies wheezing Physical exam (Primary Care) Vital Signs: Last Vital Signs Pulse 99 10/16/23 10:30 BP 134/82 10/16/23 10:30 Pulse Ox 99 10/16/23 10:30 Oxygen Delivery Method Room Air 10/16/23 10:30 BMI result Body Mass Index 41.4 Tobacco/Smoking Status: Tobacco use Status Tobacco use date assessed 06/19/23 10/16/23 10:35 Patient Tobacco Use Status Never used Tobacco 10/16/23 10:35 Tobacco use type Cigarette 10/16/23 10:35 e-Cigarette/Vaping Use Former Use 10/16/23 10:35 Thrive Assessment: Date of Thrive Assessment Date Thrive assessed 06/19/23 10/16/23 10:35 Const General: healthy appearing, no acute distress, alert and awake Nutritional Appearance: well nourished Orientation/consciousness: oriented to person, oriented to place and oriented to time HENMT Ears: TM's normal bilaterally General nose exam: Normal nasal mucous membranes and turbinates present Eyes Conjunctivae: conjunctivae normal Sclerae: sclerae normal Pupils: Equal, round and reactive pupils present Neck Neck: Yes no lymphadenopathy and Yes no JVD Thyroid: Thyroid normal Carotids: no bruits Resp Effort & Inspection: normal respiratory effort and not tachypneic Auscultation: no crackles, no rales, no rhonchi and no wheezes Cardio Rate: regular rate Rhythm: regular rhythm Heart sounds: no murmurs and normal S1 and S2 GI Palpation (GI): Soft to palpation, nontender, no hepatomegaly and no splenomegaly Auscultation: normal bowel sounds Skin General skin exam: no rashes or lesions noted and dry skin Neuro General: oriented to person, oriented to place and oriented to time Cranial nerves: Yes Equal, round and reactive pupils present Speech: No Abnormal speech present Gait exam (Neuro): Normal gait present Motor exam (neuro): no tremor noted Extrem Right upper extremity: full ROM Left upper extremity: full ROM Right lower extremity: full ROM; no edema Left lower extremity: full ROM; no edema Psych Mental Status: mental status grossly normal Speech and movement: Normal speech and movement present Affect: normal affect Attitude: cooperative Thought process: Normal thought process present Results AMB Hemoglobin A1c AMB Hemoglobin A1c 6.3 % Last Edit by MARSHALL Bo on 10/16/23 10:48 Results Reviewed Results Reviewed: Laboratory Last Values Hgb A1c (Clinic) 6.3 % (4.0-6.0) H 10/16/23 10:48 Assessment and Plan Assessment & Plan (1) DMII (diabetes mellitus, type 2): Code(s): E11.9 - Type 2 diabetes mellitus without complications Qualifiers: Diabetes mellitus complication status: without complication Diabetes mellitus skilled nursing insulin use: without skilled nursing use Qualified Code(s): E11.9 - Type 2 diabetes mellitus without complications Plan: Patient's type 2 diabetes controlled with A1c now is 6.3. Unfortunately has not lost any weight. Will continue Trulicity 3 mg daily. She will continue on lifestyle and dietary modifications. Goal A1c is to remain below 6.5 (2) ADHD: Code(s): F90.9 - Attention-deficit hyperactivity disorder, unspecified type Qualifiers: Attention deficit-hyperactivity disorder type: predominantly inattentive Qualified Code(s): F90.0 - Attention-deficit hyperactivity disorder, predominantly inattentive type Plan: Patient reports her ADHD a has been confirmed with her and her mental health therapist. Will continue on Strattera 80 mg which has been effective on helping her attention and focus. (3) HLD (hyperlipidemia): Code(s): E78.5 - Hyperlipidemia, unspecified Qualifiers: Hyperlipidemia type: pure hypercholesterolemia Qualified Code(s): E78.00 - Pure hypercholesterolemia, unspecified Plan: Patient's most recent fasting lipid panel showing acceptable total cholesterol and LDL. We have decreased the potency of her statin and liver enzymes have stabilized. Goal LDL to be below 100 (4) Obese: Code(s): E66.9 - Obesity, unspecified Qualifiers: Body mass index: BMI 38.0-38.9 Obesity classification: adult class 2 (BMI 35 - 39.9) Obesity type: due to excess calories Serious obesity comorbidity presence: with serious comorbidity Qualified Code(s): E66.01 - Morbid (severe) obesity due to excess calories; Z68.38 - Body mass index [BMI] 38.0-38.9, adult Plan: Continues to struggle to lose weight. She would like to speak with the bariatric surgery clinic about options on weight loss surgery. Orders: Orders Comprehensive [place]. Panel Fast 10/16/23 E11.9 - Type 2 diabetes mellitus without complications Complete Blood Count no Diff 10/16/23 E11.9 - Type 2 diabetes mellitus without complications Lipid Panel 10/16/23 E78.00 - Pure hypercholesterolemia, unspecified AMB Hemoglobin A1c 10/16/23 E11.9 - Type 2 diabetes mellitus without complications Referrals Bariatric Surgery Referral E66.01 - Morbid (severe) obesity due to excess calories, Z68.38 - Body mass index [BMI] 38.0-38.9, adult Medical Billing And Coding Instructor Nutrition Referral E11.9 - Type 2 diabetes mellitus without complications Patient Instructions: Goals: A1c to remain below 6.5, LDL to be below 100 Barriers: Adherence to physical activity and healthy eating habits Coding Level of Care Code Est Pt Level 4 (39858) Complex EM visit Add On G2211 Diagnoses Type 2 diabetes mellitus without complication, without long-term current use of insulin E11.9 Diabetes mellitus complication status: without complication Diabetes mellitus skilled nursing insulin use: without skilled nursing use Attention deficit hyperactivity disorder (ADHD), predominantly inattentive type F90.0 Attention deficit-hyperactivity disorder type: predominantly inattentive Pure hypercholesterolemia E78.00 Hyperlipidemia type: pure hypercholesterolemia Class 2 severe obesity due to excess calories with serious comorbidity and body mass index (BMI) of 38.0 to 38.9 in adult E66.01; Z68.38 Body mass index: BMI 38.0-38.9 Obesity classification: adult class 2 (BMI 35 - 39.9) Obesity type: due to excess calories Serious obesity comorbidity presence: with serious comorbidity
== END 2023-10-16 11:04 | disposition home or self-care (01) ==
PROVIDERS: PCP Physician Assistant; Visit Provider Physician Assistant
DX: E11.9 Type 2 diabetes mellitus without complications (principal)
CPT/HCPCS: 83036; 99214; G2211

== ENCOUNTER 2023-10-18 10:27 | Outpatient (AMB) | payer OTHER, SELFPAY ==
--- NOTE | 2023-10-18 10:30 | A.OFFVIS_ITS ---
VS Expanded 10/18/23 11:00 Height 5 ft Weight 212 lb 4 oz BMI 41.4 Intake Visit Reasons: T2DM/CONFIRMED Allergies acetaminophen [Lortab] Adverse Reaction (Unknown, Verified 10/16/23 10:44) Unknown hydrocodone [Lortab] Adverse Reaction (Unknown, Verified 10/16/23 10:44) Unknown metformin Adverse Reaction (Unknown, Verified 10/16/23 10:44) Unknown Nutrition Presentation Details: Pt presents for MNT for T2DM. PT was referred by PCP, [facility] [place] Pt reports typically choosing fast meals/convenience meals due to lack of meal planning skills Reports working on buying fruits/yogurt/vegetable more frequently Physical activity: walking once a week 30 min BS Monitoring Most Recent Diabetes Results: Microalb/Creat Ratio 5.8 ug/mg cr (<30) 06/13/23 Cholesterol 131 mg/dL (<200) 06/13/23 HDL Cholesterol 45 mg/dL (>40) 06/13/23 Triglycerides 80 mg/dL (<150) 06/13/23 Creatinine 0.68 mg/dL (0.5-1.4) 10/11/23 Blood Urea Nitrogen 7 mg/dL (9-16) L 10/11/23 Sodium 139 mmol/L (135-145) 10/11/23 Potassium 4.0 mmol/L (3.3-5.1) 10/11/23 Chloride 106 mmol/L (96-108) 10/11/23 Carbon Dioxide 24 mmol/L (22-29) 10/11/23 Calcium 9.0 mg/dL (8.4-10.2) 10/11/23 AST 24 U/L (5-31) 10/11/23 ALT 28 U/L (0-31) 10/11/23 Total Protein 7.1 g/dL (6.5-8.0) 10/11/23 Albumin 3.9 g/dL (3.5-5.0) 10/11/23 MLX-Yildvcd-Ea.Jeor Equation Height: 5 ft Weight: 212 lb Resting Metabolic Rate: 1560.27 Calculated Activity Level: Mild Activity Calories Needed to Maintain Weight: 2145.37 [facility] Medical History (Updated 10/23/23 @ 13:[address], LDN) Diabetes Arthritis Surgical History Hx of tonsillectomy History of cholecystectomy Family History Father Medical history unknown Mother Diabetes Schizophrenia Maternal Uncle Hypertension Myocardial infarction Family/Other Diabetes Cancer Maternal Grandfather Aneurysm Brother No problems noted. Brother No problems noted. Sister No problems noted. 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 Sexual orientation: Straight/Heterosexual Gender identity: Female Cognitive needs: No Hearing needs: No Vision needs: No Female Reproductive History Menstrual Age of Menarche: 11 Assessment & Plan Assessment & Plan (1) Diabetes: Code(s): E11.9 - Type 2 diabetes mellitus without complications Category: Medical Plan: Wt: 96 Kg ( 10/2023 ) Est kcal needs as per MSJ: 2100 (40% carb, 30% protein/fat) Est fluid needs as per 25-30 ml/d: 2900 Est prot per day as per 1 g/kg bw: 96 Recommend fiber intake : 8-10 g per day and gradually increase to 25-28 g per day for women and 35-38 g for men or as tolerated Recommend sodium intake per day : less than 1500 mg less than 2000 mg Educated patient on: ( R = reviewed V = verbalizes understanding N/R = needs review N/A = not applicable * Food sources of carbohydrate, adequate serving sizes and its role in various health conditions: R * Differences between complex carbohydrates a simple carbohydrates, role of fiber in diet: R V N/R * Lean protein sources of foods: R V NR * Differences between types of fats and role in diet (mono on saturated fat fatty acids, saturated fatty acids, trans fats): R V N/R * Food sources of sodium in salt and healthy modifications for heart health in kidney health: R V R/V * Vitamins and minerals: R V N/R * Healthy plate method concept: R * Physical activity: Benefits a precaution: R V N/R * Hypoglycemia protocol (rule of 15): R V N/R * Dietary prevention of Hyperglycemia: R V R/V Patient Instructions: Include lean protein food in your meals working on balancing meals/following healthy plate method, reducing carbs ex: lunch: have tuna or chicken salad on whole wheat bread or on a salad with (ok canned or tuna pouches) dinner: 1/2 current serving of starch and include 2-3 scrambled eggs with spinach or carrots or vegetable of choice see meal ideas as examples Coding Level of Care Code Nutr Indiv Intake (86629) Diagnoses Diabetes E11.9 Time Spent (min) 30
[2023-10-18 11:00] VITALS: BMI 41.4
[2023-10-23 13:33] VITALS: BMI 41.4
== END 2023-10-18 11:12 | disposition home or self-care (01) ==
PROVIDERS: PCP Physician Assistant; Visit Provider Dietitian, Registered
DX: E11.9 Type 2 diabetes mellitus without complications (principal)

== ENCOUNTER → 2023-10-18 10:27 | Outpatient (BNVA) | payer OTHER, SELFPAY | PROVIDERS: PCP Physician Assistant; Visit Provider Dietitian, Registered | DX: E11.9 Type 2 diabetes mellitus without complications (principal) | CPT/HCPCS: 97802 ==

== ENCOUNTER → 2023-11-01 10:01 | Outpatient (BNVA) | payer OTHER, SELFPAY | PROVIDERS: PCP Physician Assistant; Visit Provider Physician Assistant Surgical ==

== ENCOUNTER → 2024-01-25 08:15 | Outpatient (AMB) | payer OTHER, SELFPAY ==
--- NOTE | 2024-01-25 09:14 | MHC.OFFVISWM ---
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 Allergies acetaminophen [Lortab] Adverse Reaction (Unknown, Verified 01/25/24 09:14) Unknown hydrocodone [Lortab] Adverse Reaction (Unknown, Verified 01/25/24 09:14) Unknown metformin Adverse Reaction (Unknown, Verified 01/25/24 09:14) Unknown Medication List - Last Reconciled 01/25/24 by Montrell Shahid MD albuterol sulfate 90 mcg/actuation 1 inh inhalation QID PRN 30 days atomoxetine (Strattera) 80 mg PO DAILY 30 days blood sugar diagnostic (FreeStyle Lite Strips) Test 3 times Daily blood-glucose meter (FreeStyle Lite Meter kit) Test 3 times Daiy cholecalciferol (vitamin D3) 25 mcg PO DAILY dulaglutide (Trulicity) 3 mg (0.5 mL) subcut QWEEK 4 weeks hydroxyzine HCl 20 mg (2 x 10 mg) PO BEDTIME 30 days ibuprofen 600 mg PO Q8H PRN lancets (FreeStyle Lancets) As directed levonorgestrel (Mirena) intrauterine lidocaine 5% 1 patch topical DAILY 30 days magnesium oxide 400 mg PO .nightly 90 days multivitamin (One Daily Multivitamin tablet) 1 tab PO DAILY pen needle, diabetic (BD Ultra-Fine Elizabeth Pen Needle) As directed simvastatin 20 mg PO DAILY terconazole 0.8% 1 appful vaginal BEDTIME 3 days HPI HPI 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: Details: Start time: 8.59am, End time: 9.59am ?I spent 55 minutes speaking with the patient on the phone plus an additional 5 minutes reviewing and updating records for a total of 60 minutes HPI Comments Details: Previous weight loss efforts: self diet with Ozempic and Trulicity without weight loss Wakes up: 12pm, sleeps: 3am Breakfast: 8am (Cereal cerios) Lunch: 1.30-2pm (ham and cheese sandwich) Dinner: 6pm (cafeteria food) Snacks: 3-4pm (sunflower seeds, chips), 2 snacks after dinner (cereal) Exercise: none Fluids: Coffee: 1 cup/day (creamer), tea: none, soda: Coke zero, juice: none, ETOH: 1/month PFS Medical History (Updated 01/25/24 @ 09:23 by Montrell Shahid MD) Anxiety HLD (hyperlipidemia) Non-insulin dependent type 2 diabetes mellitus Morbid obesity Diabetes Arthritis Surgical History Hx of tonsillectomy History of cholecystectomy Family History Father Medical history unknown Mother Diabetes Schizophrenia Maternal Uncle Hypertension Myocardial infarction Family/Other Diabetes Cancer Maternal Grandfather Aneurysm Brother No problems noted. Brother No problems noted. Sister No problems noted. 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 Sexual orientation: Straight/Heterosexual Gender identity: Female Cognitive needs: No Hearing needs: No Vision needs: No Female Reproductive History Menstrual Age of Menarche: 11 Telehealth Telehealth Telehealth Platform: Telephone Location of provider rendering services: practice address Location of patient: address on file Patient Identification confirmed using: Name, : Yes Telehealth method: voice only Patient verbally consented to treatment: Yes Patient verbally consented to billing insurance company: Yes Patient informed of any privacy concerns related to visit: Yes Minutes spent on Phone/Video with Pt.: 60 Assessment & Plan Assessment & Plan (1) Morbid obesity: Code(s): E66.01 - Morbid (severe) obesity due to excess calories Category: Medical Plan: 1.? Plan for lap sleeve gastrectomy. If diaphragmatic or ventral hernias are present at time of surgery, these will be repaired laparoscopically as well. Risks and complications include possible conversion to an open procedure, anastomotic leak, bleeding requiring transfusion, small bowel obstruction, , DVT and pulmonary embolism, cardiac, or pulmonary complications, as buttermaker continuous churn complications such as anastomotic ulcer, insufficient weight loss and vitamin deficiencies. I emphasized the importance of close follow-up, adherence to instructions and good communication. 2. You will receive a link of our software abbie to generate an individualized nutritional and exercise plan specific for you. Please send me a screenshot of the plans you will generate Meal to include lean meat (beef, fish, pork, turkey, chicken), or samoan yogurt, or egg whites, or beans with a salad with olive oil and fruits (berries, pears, apples, kiwi). Avoid salt, breads, potatoes, rice, pasta, desserts. ?3. If you choose shakes, each shake would be drunk slowly, like coffee in a period of 2 hours. ?4. If you choose bars, cut each bar in 4 pieces and eat each piece in 30min ?to make each bar last 2 hours. ?5. I emphasized the importance of measuring accurately the food portion and measure it when serving the food in plate ?6. The meal portions include a specific number of forks of meat and salad. You always eat the meat portion but you can replace up to half of salad/vegetables portion with rice, potatoes or pasta, or a fruit ?if you like. The less you do it the better weight loss will be. ?7. One full-size fork is what it can be scooped on the fork without falling aside and not what can be bit with the fork. Use regular forks like those you find in a typical restaurant. ?8.? Please send me weight measurements as soon as possible and then once a week. Always include your diet and exercise plan. 9. The best choice would be to purchase a stationary bike, elliptical or treadmill at home that can track calories. Let me know if you do so I can give you an exercise plan. ?10.?It is important of avoiding and for at least 18 months postoperatively and has been discussed at the infosession. ?11. Goal is to lose at least 1.5-2lbs per week ?12. Goal to lose 10% of your weight before surgery, which is about 21lbs. Ultimate weight goal: 187lbs before surgery 13. Please follow the diet plan exactly without any change. If you don't like something about the plan or you feel hungry you need to communicate with me so I can help you revise the plan. You should not change the plan yourself. 14. To be scheduled for EGD to assess the stomach's anatomy. The possibility of biopsies was discussed. Patient needs to avoid use of NSAIDs and aspirin for 1 week prior to EGD. Risks of perforation and bleeding was discussed with the patient. This will be an outpatient procedure with IV sedation. Orders: Orders Hemoglobin A1c Today E11.9 - Type 2 diabetes mellitus without complications, E28.2 - Polycystic ovarian syndrome, E66.01 - Morbid (severe) obesity due to excess calories, E78.00 - Pure hypercholesterolemia, unspecified Complete Blood Count Auto Diff Today E11.9 - Type 2 diabetes mellitus without complications, E28.2 - Polycystic ovarian syndrome, E66.01 - Morbid (severe) obesity due to excess calories, E78.00 - Pure hypercholesterolemia, unspecified Comprehensive Met. Panel Today E11.9 - Type 2 diabetes mellitus without complications, E28.2 - Polycystic ovarian syndrome, E66.01 - Morbid (severe) obesity due to excess calories, E78.00 - Pure hypercholesterolemia, unspecified Vitamin B12 and Folate Today E11.9 - Type 2 diabetes mellitus without complications, E28.2 - Polycystic ovarian syndrome, E66.01 - Morbid (severe) obesity due to excess calories, E78.00 - Pure hypercholesterolemia, unspecified Zinc Today E11.9 - Type 2 diabetes mellitus without complications, E28.2 - Polycystic ovarian syndrome, E66.01 - Morbid (severe) obesity due to excess calories, E78.00 - Pure hypercholesterolemia, unspecified Vitamin A Today E11.9 - Type 2 diabetes mellitus without complications, E28.2 - Polycystic ovarian syndrome, E66.01 - Morbid (severe) obesity due to excess calories, E78.00 - Pure hypercholesterolemia, unspecified Ferritin Today E11.9 - Type 2 diabetes mellitus without complications, E28.2 - Polycystic ovarian syndrome, E66.01 - Morbid (severe) obesity due to excess calories, E78.00 - Pure hypercholesterolemia, unspecified US abdomen comp w elastography Today E11.9 - Type 2 diabetes mellitus without complications, E28.2 - Polycystic ovarian syndrome, E66.01 - Morbid (severe) obesity due to excess calories, E78.00 - Pure hypercholesterolemia, unspecified ECG 12 lead EKG Today E11.9 - Type 2 diabetes mellitus without complications, E28.2 - Polycystic ovarian syndrome, E66.01 - Morbid (severe) obesity due to excess calories, E78.00 - Pure hypercholesterolemia, unspecified FL upper GI w air Today E11.9 - Type 2 diabetes mellitus without complications, E28.2 - Polycystic ovarian syndrome, E66.01 - Morbid (severe) obesity due to excess calories, E78.00 - Pure hypercholesterolemia, unspecified Insulin Today E11.9 - Type 2 diabetes mellitus without complications, E28.2 - Polycystic ovarian syndrome, E66.01 - Morbid (severe) obesity due to excess calories, E78.00 - Pure hypercholesterolemia, unspecified H Pylori Breath Test Today E11.9 - Type 2 diabetes mellitus without complications, E28.2 - Polycystic ovarian syndrome, E66.01 - Morbid (severe) obesity due to excess calories, E78.00 - Pure hypercholesterolemia, unspecified Lipid Panel Today E11.9 - Type 2 diabetes mellitus without complications, E28.2 - Polycystic ovarian syndrome, E66.01 - Morbid (severe) obesity due to excess calories, E78.00 - Pure hypercholesterolemia, unspecified IRON PROFILE Today E11.9 - Type 2 diabetes mellitus without complications, E28.2 - Polycystic ovarian syndrome, E66.01 - Morbid (severe) obesity due to excess calories, E78.00 - Pure hypercholesterolemia, unspecified C Reactive Protein Today E11.9 - Type 2 diabetes mellitus without complications, E28.2 - Polycystic ovarian syndrome, E66.01 - Morbid (severe) obesity due to excess calories, E78.00 - Pure hypercholesterolemia, unspecified Vitamin B1 Today E11.9 - Type 2 diabetes mellitus without complications, E28.2 - Polycystic ovarian syndrome, E66.01 - Morbid (severe) obesity due to excess calories, E78.00 - Pure hypercholesterolemia, unspecified TSH reflex Free T4 Today E11.9 - Type 2 diabetes mellitus without complications, E28.2 - Polycystic ovarian syndrome, E66.01 - Morbid (severe) obesity due to excess calories, E78.00 - Pure hypercholesterolemia, unspecified Vitamin D 25-OH Total Today E11.9 - Type 2 diabetes mellitus without complications, E28.2 - Polycystic ovarian syndrome, E66.01 - Morbid (severe) obesity due to excess calories, E78.00 - Pure hypercholesterolemia, unspecified XR chest 2V Today E11.9 - Type 2 diabetes mellitus without complications, E28.2 - Polycystic ovarian syndrome, E66.01 - Morbid (severe) obesity due to excess calories, E78.00 - Pure hypercholesterolemia, unspecified Referrals Behavioral Health Referral E11.9 - Type 2 diabetes mellitus without complications, E28.2 - Polycystic ovarian syndrome, E66.01 - Morbid (severe) obesity due to excess calories, E78.00 - Pure hypercholesterolemia, unspecified Nutrition/Dietitian Referral E11.9 - Type 2 diabetes mellitus without complications, E28.2 - Polycystic ovarian syndrome, E66.01 - Morbid (severe) obesity due to excess calories, E78.00 - Pure hypercholesterolemia, unspecified
[2024-01-25 09:40] VITALS: BMI 40.7
== END ==
PROVIDERS: PCP Physician Assistant; Visit Provider Surgery
DX: E66.813 Obesity, class 3 (principal); Z68.41 Body mass index [BMI] 40.0-44.9, adult
CPT/HCPCS: 99205

== ENCOUNTER → 2024-01-25 08:15 | Outpatient (BNVA) | payer OTHER, SELFPAY | PROVIDERS: PCP Physician Assistant; Visit Provider Surgery ==

== ENCOUNTER 2024-02-13 13:36 | Outpatient (REF) | payer OTHER, SELFPAY ==
[2024-02-13 15:02] LABS: Hematocrit 41.2 % (37.0-47.0); Hemoglobin 13.7 g/dl (12.0-16.0); Mean Corpuscular HGB Conc 33.3 g/dl (31.0-35.0); Mean Corpuscular Hemoglobin 27.9 pg (27.0-33.0); Mean Corpuscular Volume 83.9 fL (80.0-98.0); Platelet Count 290 X10*3/uL (160-400); Red Blood Count 4.91 X10*6/uL (4.20-5.50); White Blood Count 7.2 X10*3/uL (4.8-10.8)
[2024-02-13 15:43] LABS: Alanine Aminotransferase 42 U/L (0-31); Albumin Level 3.9 g/dL (3.5-5.0); Alkaline Phosphatase 79 U/L (39-117); Anion Gap 12 (12-20); Aspartate Amino Transferase 39 U/L (5-31); Bilirubin Total 0.5 mg/dL (0.0-1.0); Blood Urea Nitrogen 7 mg/dL (9-16); Calcium 9.1 mg/dL (8.4-10.2); Carbon Dioxide 22 mmol/L (22-29); Chloride 109 mmol/L (96-108); Cholesterol 139 mg/dL (<200); Estimated Glomerular Filt Rate > 60; Glucose Fasting 151 mg/dL (60-99); HDL Cholesterol 45 mg/dL (>40); LDL Cholesterol Calculated 76 mg/dL (<100); Potassium 4.5 mmol/L (3.3-5.1); Sodium 138 mmol/L (135-145); Total Protein 7.3 g/dL (6.5-8.0); Triglycerides 94 mg/dL (<150)
== END 2024-02-13 13:37 | disposition home or self-care (01) ==
LOC: HO.LAB 13:36
PROVIDERS: PCP Physician Assistant; Visit Provider Physician Assistant
DX: E11.9 Type 2 diabetes mellitus without complications (principal); E78.00 Pure hypercholesterolemia, unspecified
CPT/HCPCS: 36415; 80053; 80061; 85027

== ENCOUNTER 2024-02-20 08:30 | Outpatient (AMB) | payer OTHER, SELFPAY ==
[2024-02-20 08:36] VITALS: BP 132/74; PULSE 97; O2SAT 97; BMI 42.3
--- NOTE | 2024-02-20 08:36 | A.OFFPC_ITS ---
Vital Signs 02/20/24 08:36 Height 5 ft Weight 216 lb 6 oz BMI 42.3 BP 132/74 Blood Pressure Location Lt brachial Position Sitting Pulse 97 Pulse Source Pulse Oximeter Pulse Oximetry (%) 97 Oxygen Delivery Method Room Air Intake Visit Reasons: PE Intake Note: Patient is here today for a physical. Outside Sales Account Executive Required: No Interventional Nurse: Not Required per policy Accompanied by: Self / Same As Patient Allergies acetaminophen [Lortab] Adverse Reaction (Unknown, Verified 02/20/24 08:44) Unknown hydrocodone [Lortab] Adverse Reaction (Unknown, Verified 02/20/24 08:44) Unknown metformin Adverse Reaction (Unknown, Verified 02/20/24 08:44) Unknown Medication List - Last Reconciled 02/20/24 by Victor Manuel Marinelli PA-C albuterol sulfate 90 mcg/actuation 1 inh inhalation QID PRN 30 days atomoxetine (Strattera) 80 mg PO DAILY 30 days blood sugar diagnostic (FreeStyle Lite Strips) Test 3 times Daily blood-glucose meter (FreeStyle Lite Meter kit) Test 3 times Daiy cholecalciferol (vitamin D3) 25 mcg PO DAILY dulaglutide (Trulicity) 3 mg (0.5 mL) subcut QWEEK 4 weeks hydroxyzine HCl 20 mg (2 x 10 mg) PO BEDTIME 30 days ibuprofen 600 mg PO Q8H PRN lancets (FreeStyle Lancets) As directed levonorgestrel (Mirena) intrauterine lidocaine 5% 1 patch topical DAILY 30 days magnesium oxide 400 mg PO .nightly 90 days multivitamin (One Daily Multivitamin tablet) 1 tab PO DAILY pen needle, diabetic (BD Ultra-Fine Elizabeth Pen Needle) As directed simvastatin 20 mg PO DAILY terconazole 0.8% 1 appful vaginal BEDTIME 3 days Tobacco use date assessed: 02/20/24 Dental Screening Dental Screen Date: 06/19/23 HPI PE HPI Details Patient is a 38-year-old female here today a routine annual physical.? patient has a past medical history significant for obesity asthma, type 2 diabetes, generalized anxiety disorder Concerns--> she is pretty discouraged about not losing much weight. She continues on fairly high dose of Trulicity and has gained some glycemic control. She has seen the [facility] program and is considering bariatric surgery though is on hold for now because she is not able to take time off work for recovery. ADHD :? Has followed up with a mental health therapist agrees with a diagnosis of ADD. She continues on Strattera 80 mg with good effect on her focus and attention to detail. .. Generalized anxiety disorder: She reports her anxiety has been better controlled. She has in a better living situation in more stable at her job. She has not using any more lorazepam. Does have hydroxyzine available to her as needed as well. ? .. ? Type 2 diabetes: Patient currently and Trulicity 3mg once a week , most recent fasting blood sugar improved at .? Today's A1c at 6.9 from 6.3. She does admit to some dietary indiscretion as of late. She has been stressed out at her job which causes her to eat a little bit more. .. Hyperlipidemia:? Patient continues to be compliant with statin therapy.? Most recent LDL acceptable.? ? Will continue current statin therapy. Of note liver enzymes have stabilized. 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 Recently diagnosed with PCOS. Mammogram: Will be 39 in a few months and is considering mammogram Vaccines: Up-to-date with COVID vaccine, flu vaccine, pneumonia vaccine and tetanus vaccine Laboratory Tests 06/13/23 10/11/23 10/16/23 13:05 11:48 10:48 RBC Creatinine Fasting Glucose 138 H 103 H Hgb A1c (Clinic) 6.3 H AST ALT 02/13/24 13:57 RBC 4.91 Creatinine 0.77 Fasting Glucose 151 H Hgb A1c (Clinic) AST 39 H ALT 42 H PFSH Medical History (Updated 02/21/24 @ 07:54 by Victor Manuel Marinelli PA-C) Herpes Anxiety HLD (hyperlipidemia) Morbid obesity Diabetes Arthritis Surgical History Hx of tonsillectomy History of cholecystectomy Family History Father Medical history unknown Mother Diabetes Schizophrenia Maternal Uncle Hypertension Myocardial infarction Family/Other Diabetes Cancer Maternal Grandfather Aneurysm Brother No problems noted. Brother No problems noted. Sister No problems noted. Other Mental health disorder Substance use disorder Social History (Updated 02/20/24 @ 08:49 by Victor Manuel Marinelli PA-C) Household Members: Family Housing: House Alcohol intake: current Alcohol intake frequency: holidays/special occasions only Patient Tobacco Use Status: Never used Tobacco Tobacco use type: Cigarette e-Cigarette/Vaping Use: Former Use Second Hand Smoke Exposure: No Substance Use Type: Marijuana service: No Current occupational status: employed Current occupation: [employer], [place] [employer] Sexual orientation: Straight/Heterosexual Gender identity: Female Cognitive needs: No Hearing needs: No Vision needs: No Female Reproductive History Menstrual Age of Menarche: 11 Questionnaire PHQ-9 Over the last 2 weeks, how often have you been bothered by any of the following problems? 1. Little interest or pleasure in doing things: not at all 2. Feeling down, depressed, or hopeless: not at all 3. Trouble falling or staying asleep, or sleeping too much: not at all 4. Feeling tired or having little energy: not at all 5. Poor appetite or overeating: not at all 6. Feeling bad about yourself - or that you are a failure or have let yourself or your family down: not at all 7. Trouble concentrating on things, such as reading the newspaper or watching television: not at all 8. Moving or speaking so slowly that other people could have noticed. Or the opposite - being so fidgety or restless that you have been moving around a lot more than usual: not at all 9. Thoughts that you would be better off or of hurting yourself in some way: not at all Total score: 0 Depression Screening Interpretation: Negative Depression Screening Done: Yes Source: Developed by Drs. Lucio Chen, Chante Kramer, Forest Roldan and colleagues, with an educational reema from [employer]. Thrive Questionnaire Date Thrive assessed: 06/19/23 I am a: Patient What is your living situation today?: I have a steady place to live Within the past 12 months, did the food you bought not last and you didn't have the money to get more?: Sometimes True Within the past 12 months, did you worry whether your food would run out before you got money to buy more?: Sometimes True Do you have trouble paying for medicines?: No Do you have trouble getting transportation to medical appointments?: No Do you have trouble paying your heating and electricity bill?: No Do you have trouble taking care of your child, family member or friend?: No Do you have trouble with day-to-day activities such as bathing, preparing meals, shopping, managing finances, etc.?: No Are you currently unemployed and looking for a job?: No Are you interested in more education?: No Please select the resources that you would like help with: None Currently or been in a relationship where the following occur: Controlled Financially and Controlled Emotionally THRIVE Score: 4 AUDIT C Alcohol Use Questionnaire (AUDIT-C) 1. How often do you have a drink containing alcohol?: Monthly or less 2. How many drinks containing alcohol do you have on a typical day when you are drinking?: 1 or 2 3. How often do you have six or more drinks on one occasion?: Never Total Score: 1 ALBA-7 AMB Questionnaire ALBA-7 Date ALBA - 7 assessed: 06/19/23 Feeling nervous, anxious, or on edge: 0 = Not at all Not being able to stop or control worryin = Not at all Worrying too much about different things: 0 = Not at all Trouble relaxin = Not at all Being so restless that it is hard to sit still: 0 = Not at all Becoming easily annoyed or irritable: 0 = Not at all Feeling afraid as if something awful might happen: 0 = Not at all Total ALBA-7 score (0-4 normal; 5-9 mild; 10-14 moderate; 15-21 severe): 0 Source: Developed by Drs. Lucio Chen, Chante Kramer, Forest Roldan and colleagues, with an educational reema from [employer]. Review of Systems Const Denies body aches, Denies chills, Denies excessive sweating, Denies fatigue, Denies fever(s) and Denies headache(s) Eyes Denies blurry vision ENT Denies dysphagia, Denies vertigo, Denies dizziness, Denies headache(s), Denies hearing loss and Denies tinnitus Card Denies chest pain, Denies chest pain with activity, Denies syncope, Denies irregular heart rhythm and Denies dyspnea Resp Denies chest congestion, Denies cough, Denies hemoptysis, Denies dyspnea and Denies wheezing GI Denies abdominal pain, Denies melena, Denies hematochezia, Denies coffee ground emesis, Denies dysphagia, Denies diarrhea, Denies nausea and Denies vomiting Denies urinary frequency, Denies dysuria, Denies urinary hesitancy and Denies urinary urgency Musc Denies arthralgias, Denies limited range of motion, Denies muscle cramps and Denies muscle weakness Skin/Breast Denies rash and Denies skin ulcer Neuro Denies Abnormal speech present, Denies confusion, Denies vertigo, Denies dizziness, Denies syncope, Denies headache(s), Denies memory loss and Denies se izure-like activity Psych Denies anxiety, Denies confusion, Denies depression, Denies memory loss, Denies panic attacks and Denies paranoia Endo Denies excessive sweating, Denies fatigue, Denies flushing, Denies polydipsia and Denies polyuria Aller/Immun Denies wheezing Physical exam (Primary Care) Vital Signs: Last Vital Signs Pulse 97 02/20/24 08:36 BP 132/74 02/20/24 08:36 Pulse Ox 97 02/20/24 08:36 Oxygen Delivery Method Room Air 02/20/24 08:36 BMI result Body Mass Index 42.3 Tobacco/Smoking Status: Tobacco use Status Tobacco use date assessed 02/20/24 02/20/24 08:39 Patient Tobacco Use Status Never used Tobacco 02/20/24 08:49 Tobacco use type Cigarette 02/20/24 08:49 e-Cigarette/Vaping Use Former Use 02/20/24 08:49 PHQ-9: PHQ-9 Score PHQ-9: Total score 0 02/20/24 08:45 Depression Screening Interpretation: Negative Thrive Assessment: Date of Thrive Assessment Date Thrive assessed 06/19/23 02/20/24 08:39 Currently or been in a relationship where the following occur: Controlled Financially and Controlled Emotionally Const General: cooperative, comfortable, no acute distress, alert and awake; No confusion Orientation/consciousness: oriented to person, oriented to place, patient oriented x3 and No confusion HENMT Head: Yes normocephalic Ears: external ears normal and TM's normal bilaterally Face and sinus: No sinus tenderness Mouth: Normal oral and palatal mucosa present and tongue normal Teeth and gingiva: dentition normal and gingiva normal Throat: Yes posterior oropharynx normal, Yes tonsils normal and Yes uvula midline Eyes Conjunctivae: conjunctivae normal Sclerae: sclerae normal Pupils: Equal, round and reactive pupils present EOM: EOMs intact bilaterally Direct Ophthalmoscopy: No no photophobia Neck Neck: Yes no lymphadenopathy, No tender and Yes no JVD Thyroid: Thyroid normal Carotids: no bruits Chest Chest palpation & inspection: no tenderness Resp Effort & Inspection: normal respiratory effort, no audible wheezes, not labored and no stridor Auscultation: no crackles, no rales, no rhonchi and no wheezes Cardio Jugular venous distension: no JVD Rate: regular rate, not bradycardic and not tachycardic Rhythm: regular rhythm Bruits: no carotid bruits Peripheral pulses: Peripheral pulses 2+ throughout GI Inspection: Yes normal to inspection, No abdominal wall ecchymosis and No visible herniation Palpation (GI): Soft to palpation, nontender, no guarding, not rigid and No hepatosplenomegaly present Auscultation: normoactive bowel sounds General: Yes no CVA tenderness Back/Spine/Pelvis Back: no CVA tenderness and No back tenderness Cervical Spine: cervical ROM normal Thoracic/Lumbar Spine: thoracic and lumbar spine normal to inspection, straight leg raise negative bilaterally, No thoraco-lumbar ROM limited and No lumbar spinal tenderness Skin Lesions: no lesions Rashes: no rashes Wounds: no wounds Neuro General: oriented to person, oriented to place, patient oriented x3, CN's II-XI intact bilaterally and No confusion Cranial nerves: Yes Equal, round and reactive pupils present and Yes Normal accommodation reflex present Cognition (Neuro): normal cognition Speech: No Abnormal speech present Gait exam (Neuro): Normal gait present Motor exam (neuro): 5/5 motor strength present throughout Extrem Right upper extremity: full ROM; no cyanosis Left upper extremity: full ROM; no cyanosis Right lower extremity: no edema Left lower extremity: no edema Psych Appearance: grossly normal Mental Status: mental status grossly normal Affect: normal affect Attitude: cooperative Thought process: Normal thought process present Results AMB Hemoglobin A1c AMB Hemoglobin A1c 6.9 % Last Edit by WISAM Johnson on 02/20/24 08:53 Results Reviewed Results Reviewed: Laboratory Last Values Hgb A1c (Clinic) 6.9 % (4.0-6.0) H 02/20/24 08:43 Coding Level of Care Code Est Pt Prev Care 18-39y(52685) Diagnoses Annual physical exam Z00.00 Type 2 diabetes mellitus without complication, without long-term current use of insulin E11.9 Diabetes mellitus complication status: without complication Diabetes mellitus chcf insulin use: without emt intermediate use Pure hypercholesterolemia E78.00 Hyperlipidemia type: pure hypercholesterolemia Attention deficit hyperactivity disorder (ADHD), predominantly inattentive type F90.0 Attention deficit-hyperactivity disorder type: predominantly inattentive Class 3 obesity E66.813 Encounter for screening mammogram for malignant neoplasm of breast Z12.31 Breast cancer screening modality: mammogram Assessment & Plan Assessment & Plan (1) Annual physical exam: Code(s): Z00.00 - Encounter for general adult medical examination without abnormal findings Category: Medical Plan: As per HPI (2) DMII (diabetes mellitus, type 2): Code(s): E11.9 - Type 2 diabetes mellitus without complications Category: Medical Qualifiers: Diabetes mellitus complication status: without complication Diabetes mellitus emt intermediate insulin use: without emt intermediate use Qualified Code(s): E11.9 - Type 2 diabetes mellitus without complications Plan: Patient's type 2 diabetes has been fairly well controlled with current dose of Trulicity 3 mg weekly. She does report some dietary indiscretion as of late and fasting blood sugar was slightly more elevated than usual. Goal A1c is to remain below 7.0 (3) HLD (hyperlipidemia): Code(s): E78.5 - Hyperlipidemia, unspecified Category: Medical Qualifiers: Hyperlipidemia type: pure hypercholesterolemia Qualified Code(s): E78.00 - Pure hypercholesterolemia, unspecified Plan: Patient continues on statin therapy without side effect. Most recent lipid panel showing good control over total cholesterol and LDL. Goal LDL is to remain below 100 (4) ADHD: Code(s): F90.9 - Attention-deficit hyperactivity disorder, unspecified type Category: Medical Qualifiers: Attention deficit-hyperactivity disorder type: predominantly inattentive Qualified Code(s): F90.0 - Attention-deficit hyperactivity disorder, predominantly inattentive type Plan: Patient continues on Strattera 80 mg with good effect on helping her with her attention and focus. (5) Class 3 obesity: Code(s): E66.813 - Obesity, class 3 Category: Medical Plan: Patient has establish care with [facility]. Was considering a bariatric surgery though can not take enough time off of work for recovery. Bariatric surgery on hold. She will continue on lifestyle modifications and dietary modifications to reduce her weight. (6) Breast cancer screening: Code(s): Z12.39 - Encounter for other screening for malignant neoplasm of breast Category: Medical Qualifiers: Breast cancer screening modality: mammogram Qualified Code(s): Z12.31 - Encounter for screening mammogram for malignant neoplasm of breast Plan: Patient will be 39 in April of 2024. She will be due for a mammogram. Orders: Orders AMB Hemoglobin A1c 02/20/24 E11.9 - Type 2 diabetes mellitus without complications Comprehensive [place]. Panel Fast 6 Months E11.9 - Type 2 diabetes mellitus without complications Lipid Panel 6 Months E78.00 - Pure hypercholesterolemia, unspecified Microalbumin, Random (w Creat) 6 Months E11.9 - Type 2 diabetes mellitus without complications Complete Blood Count no Diff 6 Months E11.9 - Type 2 diabetes mellitus without complications MM screening mammo BI 02/20/24 Z12.31 - Encounter for screening mammogram for malignant neoplasm of breast, Z12.39 - Encounter for other screening for malignant neoplasm of breast Hemoglobin A1c 6 Months E11.9 - Type 2 diabetes mellitus without complications Medications: Refilled simvastatin 20 mg PO DAILY 90 tabs 2RF E78.00 - Pure hypercholesterolemia, unspecified ibuprofen 600 mg PO Q8H PRN 30 tabs 1RF pain Patient Instructions: Goal: A1c to remain below 7.0, LDL to be below 100 Barriers: Adherence to physical activity and healthy eating habits
== END 2024-02-20 09:09 | disposition home or self-care (01) ==
PROVIDERS: PCP Physician Assistant; Visit Provider Physician Assistant
DX: Z00.00 Encounter for general adult medical examination without abnormal findings (principal); E11.9 Type 2 diabetes mellitus without complications; E78.00 Pure hypercholesterolemia, unspecified; F90.0 Attention-deficit hyperactivity disorder, predominantly inattentive type; E66.813 Obesity, class 3; Z12.31 Encounter for screening mammogram for malignant neoplasm of breast

== ENCOUNTER → 2024-02-20 08:30 | Outpatient (BNVA) | payer OTHER, SELFPAY | PROVIDERS: PCP Physician Assistant; Visit Provider Physician Assistant | DX: Z00.01 Encounter for general adult medical examination with abnormal findings (principal); E11.9 Type 2 diabetes mellitus without complications; E78.00 Pure hypercholesterolemia, unspecified; F90.0 Attention-deficit hyperactivity disorder, predominantly inattentive type; E66.813 Obesity, class 3 | CPT/HCPCS: 83036; 96127; 99395 ==

== ENCOUNTER 2024-03-31 10:12 | Outpatient (AMB) | payer OTHER, SELFPAY ==
--- NOTE | 2024-03-31 10:16 | MHC.OFFVIS ---
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 No complaints. Last Pap/HPV was negative in 01/12 No previous screening Mammogram PFSH Medical History Herpes Anxiety HLD (hyperlipidemia) Morbid obesity Diabetes Arthritis Surgical History Hx of tonsillectomy History of cholecystectomy Family History Father Medical history unknown Mother Diabetes Schizophrenia Maternal Uncle Hypertension Myocardial infarction Family/Other Diabetes Cancer Maternal Grandfather Aneurysm Brother No problems noted. Brother No problems noted. Sister No problems noted. Other Mental health disorder Substance use disorder Social History Household Members: Family Housing: House Alcohol intake: current Alcohol intake frequency: holidays/special occasions only Patient Tobacco Use Status: Never used Tobacco Tobacco use type: Cigarette e-Cigarette/Vaping Use: Former Use Second Hand Smoke Exposure: No Substance Use Type: Marijuana service: No Current occupational status: employed Current occupation: [employer] Sexual orientation: Straight/Heterosexual Gender identity: Female Cognitive needs: No Hearing needs: No Vision needs: No Female Reproductive History Menstrual Age of Menarche: 11 control method: progestin IUCD (Mirena) Total pregnancies: 0 Date of last pap smear: 12/22/21 (negative pap smear, negative hpv) Review of Systems Const All systems reviewed & are unremarkable except as noted in HPI and below Card Reports as per HPI Resp Reports as per HPI GI Reports as per HPI and Reports no additional complaints Reports as per HPI Physical Exam Const General: cooperative, healthy appearing and comfortable Chest Chest palpation & inspection: normal inspection of the chest and normal palpation of entire chest wall Breast/axilla inspection: normal inspection of the breasts and normal inspection of the axillae Breast/axilla palpation: normal palpation of the breasts, normal palpation of the axillae and no axillary lymphadenopathy Resp Effort & Inspection: normal respiratory effort Auscultation: clear to auscultation bilaterally Percussion: percussion normal Cardio Palpation: normal PMI Rate: regular rate Rhythm: regular rhythm Heart sounds: no murmurs and no rubs Peripheral pulses: Peripheral pulses 2+ throughout GI Inspection: Yes normal to inspection Palpation (GI): Soft to palpation, nontender, no guarding, not rigid and No hepatosplenomegaly present Percussion: Yes normal to percussion Auscultation: normal bowel sounds Rectal Exam - Female: deferred General: Yes bladder normal to palpation External Female Exam: No lesion Speculum Exam - Vagina: normal appearance of the vagina, normal palpation, normal vaginal discharge and not erythematous Speculum Exam - Cervix: normal appearance of the cervix and normal palpation Bimanual exam- vagina & uterus: normal bimanual exam, normal palpation, uterine size normal, bladder normal to palpation, consistency normal and normal palpation Bimanual Exam- Adnexa, other: normal adnexae, no masses and no tenderness Assessment & Plan Assessment & Plan (1) Well woman exam: Code(s): Z01.419 - Encounter for gynecological examination (general) (routine) without abnormal findings Category: Medical Plan: Cotesting not indicated this year. Mammogram ordered. Counseled the patient about the recommended dietary allowance of 1000 mg of Calcium & 600 IU of vitamin D. The patient was instructed to perform monthly self-breast exams and to schedule an annual exam in a year; All questions answered and the patient verbalized understanding. Instructed the patient to schedule annual exam in a year Orders: Orders MM tomosynthesis screening BI Today Z12.31 - Encounter for screening mammogram for malignant neoplasm of breast Coding Level of Care Code Est Pt Prev Care 18-39y([id number]) Diagnoses Well woman exam Z01.419
[2024-03-31 10:29] VITALS: BP 106/70; BMI 42.2
== END 2024-03-31 10:41 | disposition home or self-care (01) ==
PROVIDERS: PCP Physician Assistant; Visit Provider Obstetrics & Gynecology
DX: Z01.419 Encounter for gynecological examination (general) (routine) without abnormal findings (principal)
CPT/HCPCS: 99395

== ENCOUNTER → 2024-03-31 10:12 | Outpatient (BNVA) | payer OTHER, SELFPAY | PROVIDERS: PCP Physician Assistant; Visit Provider Obstetrics & Gynecology | DX: Z01.419 Encounter for gynecological examination (general) (routine) without abnormal findings (principal); Z97.5 Presence of (intrauterine) contraceptive device | CPT/HCPCS: 99395; 99459 ==

== ENCOUNTER 2024-04-28 07:59 | Outpatient (REF) | payer OTHER, SELFPAY ==
[2024-04-28 12:57] LABS: Adenovirus PCR Not Detected (Not Detect.); Bordetella parapertussis PCR Not Detected (Not Detect.); Bordetella pertussis PCR Not Detected (Not Detect.); Chlamydia pneumoniae PCR Not Detected (Not Detect.); Coronavirus 229E PCR Not Detected (Not Detect.); Coronavirus HKU1 PCR Not Detected (Not Detect.); Coronavirus NL63 PCR Not Detected (Not Detect.); Coronavirus OC43 PCR Not Detected (Not Detect.); Human metapneumovirus PCR Not Detected (Not Detect.); Influenza A PCR Not Detected (Not Detect.); Influenza B PCR Not Detected (Not Detect.); Mycoplasma pneumoniae PCR Not Detected (Not Detect.); Parainfluenza 1 PCR Not Detected (Not Detect.); Parainfluenza 2 PCR Not Detected (Not Detect.); Parainfluenza 3 PCR Not Detected (Not Detect.); Parainfluenza 4 PCR Not Detected (Not Detect.); RSV PCR Not Detected (Not Detect.); Rhino/Enterovirus PCR Not Detected (Not Detect.)
[2024-04-28 13:01] LABS: SARS-CoV-2 PCR Detected (Not Detect.)
== END 2024-04-28 08:00 | disposition home or self-care (01) ==
LOC: HO.LAB 07:59
PROVIDERS: PCP Physician Assistant; Visit Provider Physician Assistant
DX: J06.9 Acute upper respiratory infection, unspecified (principal)
CPT/HCPCS: 87633; 87880; 99212

== ENCOUNTER 2024-04-28 07:59 | Outpatient (AMB) | payer OTHER, SELFPAY ==
[2024-04-28 08:22] VITALS: BP 120/84; PULSE 92; TEMP 36.8; O2SAT 97; BMI 42.4
--- NOTE | 2024-04-28 08:22 | AM.OFFWIN_ITS ---
Intake Vital Signs 04/28/24 08:22 Height 5 ft Weight 217 lb BMI 42.4 BP 120/84 Blood Pressure Location Rt brachial Position Sitting Pulse 92 Pulse Source Pulse Oximeter Temp 98.2 F Temp Source Oral Pulse Oximetry (%) 97 Oxygen Delivery Method Room Air Intake Visit Reasons: EP sore throat, cold sweats Intake Note: Patient here for sore throat and cold sweats that have been present for about 1 week. Patient Tobacco Use Status: Never used Tobacco Allergies acetaminophen [Lortab] Adverse Reaction (Unknown, Verified 04/28/24 08:26) Unknown hydrocodone [Lortab] Adverse Reaction (Unknown, Verified 04/28/24 08:26) Unknown metformin Adverse Reaction (Unknown, Verified 04/28/24 08:26) Unknown Do you need a note to return to daycare/school/sports/work: Yes HPI HPI Comments History of Present Illness Details History - The patient is a 38-year-old female pr esenting with upper respiratory symptoms, primarily a sore throat, and an associated cough with wheezing present over the past week. - Initial symptoms began the previous with a sore throat, progressing to include general malaise, subsequent cough, and wheezing. - Persistent sore throat and feeling of phlegm without resolution. Recent onset of cough and notable chills, alongside the sensation of cold sweating feet. - Negative COVID-19 tests despite exposu re risk in a residential with positive cases, following a history of prior COVID-19 infection with ongoing taste and smell changes since January. - Asthma is a pre-existing condition, th ough previously stable without inhaler use until recent wheezing. - Patient applies self-care using ibupro fen and scout tea without frequent medication use history due to intolerance and diabetic status managed without interruption to current routine. . Physical Exam General: Cooperative, healthy appearing, comfortable and no acute distress Orientation/consciousness: Patient oriented x3 Limitations: No limitations Head: Normal to inspection Ears: Hearing grossly normal bilaterally, external ears normal and TM's normal bilaterally Nose: Normal external nose present, Normal nares present and No nasal discharge present Face and sinus: Normal facial exam and Yes sinuses nontender Mouth: Normal oral and palatal mucosa present and moist mucous membranes Throat: Yes tonsils normal, Yes uvula midline. Posterior oropharynx erythema Eyes: Appearance normal, both eyes and all related structures Neck: Normal visual inspection Respiratory: Clear to auscultation bilaterally. Normal respiratory effort, able to speak in complete sentences, Actively coughing, no respiratory distress, not tachypneic, no tripod positioning and no use of accessory muscles Cardiovascular: Regular rate and rhythm. Normal S1 and S2 Skin: No rashes or lesions noted Neuro: Patient oriented x3 Extremities: Normal to inspection and Yes no clubbing, cyanosis or edema, but patient reports feet feeling cold and sweating PFSH Medical History Herpes Anxiety HLD (hyperlipidemia) Morbid obesity Diabetes Arthritis Surgical History Hx of tonsillectomy History of cholecystectomy Family History Father Medical history unknown Mother Diabetes Schizophrenia Maternal Uncle Hypertension Myocardial infarction Family/Other Diabetes Cancer Maternal Grandfather Aneurysm Brother No problems noted. Brother No problems noted. Sister No problems noted. Other Mental health disorder Substance use disorder Social History Household Members: Family Housing: House Alcohol intake: current Alcohol intake frequency: holidays/special occasions only Patient Tobacco Use Status: Never used Tobacco Tobacco use type: Cigarette e-Cigarette/Vaping Use: Former Use Second Hand Smoke Exposure: No Substance Use Type: Marijuana service: No Current occupational status: employed Current occupation: [employer] Sexual orientation: Straight/Heterosexual Gender identity: Female Cognitive needs: No Hearing needs: No Vision needs: No Female Reproductive History Menstrual Age of Menarche: 11 Review of Systems Const All systems reviewed & are unremarkable except as noted in HPI and below Physical Exam Vital Signs: Last Vital Signs Temp 98.2 F 04/28/24 08:22 Pulse 92 04/28/24 08:22 BP 120/84 04/28/24 08:22 Pulse Ox 97 04/28/24 08:22 Oxygen Delivery Method Room Air 04/28/24 08:22 BMI result Body Mass Index 42.4 Results AMB Rapid Strep AMB Rapid Strep Negative Last Edit by MARSHALL Gresham on 04/28/24 08:41 Assessment & Plan Assessment & Plan (1) URI, acute: Code(s): J06.9 - Acute upper respiratory infection, unspecified Plan: Testing conducted during the visit includes negative strep swab, with comprehensive viral panel pending. The patient exhibits upper respiratory symptoms with no current evidence of bacterial infection following a negative strep test, pending further test results. A viral panel has been ordered, with potential management adjustments to follow based on findings. A rescue inhaler for asthma has been re-prescribed to address wheezing. The patient is advised to rest, ensure adequate hydration, and manage symptoms conservatively. With negative COVID-19 test results but known exposure, monitoring remains crucial. Diabetes management continues alongside throat soothing measures, emphasizing electrolyte balance. Recommendations are governed by symptomatology and diagnostic outcomes, with potential antibiotic therapy depending on confirmation of atypical pneumonia. Patient was informed and verbally consented to the use of an ambient scribe for clinic note documentation during this visit Orders: Orders Resp [place]ogen [place] [facility] [place] J06.9 - Acute upper respiratory infection, unspecified Medications: Refilled albuterol sulfate 90 mcg/actuation 1 inh inhalation QID 30 days PRN 8.5 grams 0RF shortness of breath or wheezing J45.20 - Mild intermittent asthma, uncomplicated Coding Level of Care Code Est Pt Level 3 (05459) Diagnoses URI, acute J06.9
== END 2024-04-28 08:44 | disposition home or self-care (01) ==
PROVIDERS: PCP Physician Assistant; Visit Provider Physician Assistant
DX: J06.9 Acute upper respiratory infection, unspecified (principal); Z13.9 Encounter for screening, unspecified

== ENCOUNTER 2024-05-22 11:39 | Outpatient (REF) | payer OTHER, SELFPAY | END 2024-05-22 11:40 | disposition home or self-care (01) | LOC: HO.MAMMO 11:39 | PROVIDERS: PCP Physician Assistant; Visit Provider Physician Assistant | DX: Z12.31 Encounter for screening mammogram for malignant neoplasm of breast (principal) | CPT/HCPCS: 77063; 77067 ==

== ENCOUNTER → 2024-05-22 11:41 | Outpatient (BNV) | payer OTHER, SELFPAY | PROVIDERS: PCP Physician Assistant; Visit Provider Internal Medicine | DX: Z12.31 Encounter for screening mammogram for malignant neoplasm of breast (principal) | CPT/HCPCS: 77063; 77067 ==

== ENCOUNTER 2024-06-11 14:07 | Outpatient (AMB) | payer OTHER, SELFPAY ==
[2024-06-11 14:17] VITALS: BP 106/60; PULSE 90; TEMP 36.2; O2SAT 98; BMI 41.5
--- NOTE | 2024-06-11 14:17 | MHC.PC.OV ---
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 Adult Education Required: No Accompanied by: Self / Same As Patient Allergies acetaminophen [Lortab] Adverse Reaction (Unknown, Verified 06/11/24 14:25) Unknown hydrocodone [Lortab] Adverse Reaction (Unknown, Verified 06/11/24 14:25) Unknown metformin Adverse Reaction (Unknown, Verified 06/11/24 14:25) Unknown Medication List - Last Reconciled 06/11/24 by Victor Manuel Marinelli PA-C albuterol sulfate 90 mcg/actuation 1 inh inhalation QID PRN 30 days atomoxetine (Strattera) 80 mg PO DAILY 30 days blood sugar diagnostic (FreeStyle Lite Strips) Test 3 times Daily blood-glucose meter (FreeStyle Lite Meter kit) Test 3 times Daiy cholecalciferol (vitamin D3) 25 mcg PO DAILY dulaglutide (Trulicity) 3 mg (0.5 mL) subcut QWEEK 4 weeks hydroxyzine HCl 20 mg (2 x 10 mg) PO BEDTIME 30 days ibuprofen 600 mg PO Q8H PRN lancets (FreeStyle Lancets) As directed levonorgestrel (Mirena) intrauterine lidocaine 5% 1 patch topical DAILY 30 days magnesium oxide 400 mg PO .nightly 90 days multivitamin (One Daily Multivitamin tablet) 1 tab PO DAILY pen needle, diabetic (BD Ultra-Fine Elizabeth Pen Needle) As directed simvastatin 20 mg PO DAILY terconazole 0.8% 1 appful vaginal BEDTIME 3 days Tobacco use date assessed: 06/11/24 Dental Screening Dental Screen Date: 06/11/24 Did you have a dental visit in the last 12 months?: Yes Did you have a dental problem in the last 6 months where you did not have access to dental care?: No Was dental information given to patient?: Patient has dentist HPI F/u Check HPI Details Patient is a 38-year-old female here today for follow-up visit.? patient has a past medical history significant for obesity asthma, type 2 diabetes, generalized anxiety disorder Tessa reports she has been suffering with palpitations, tachycardia, and dyspnea that began following a COVID-19 infection in early April of the current year. The patient reports experiencing a resting heart rate of up to 120 beats per minute, audible heartbeats while lying down, and exertional dyspnea when climbing stairs. These symptoms have persisted since the COVID-19 infection, identified unexpectedly through an urgent care visit after home testing was negative. The patient also notes new episodes of awakening at night with coughing, as if she had been holding her breath. No significant changes in medications have been made, though the patient was prescribed an inhaler by urgent care as a precaution. [facility] Medical History Herpes Anxiety HLD (hyperlipidemia) Morbid obesity Diabetes Arthritis Surgical History Hx of tonsillectomy History of cholecystectomy Family History Father Medical history unknown Mother Diabetes Schizophrenia Maternal Uncle Hypertension Myocardial infarction Family/Other Diabetes Cancer Maternal Grandfather Aneurysm Brother No problems noted. Brother No problems noted. Sister No problems noted. Other Mental health disorder Substance use disorder Social History Household Members: Family Housing: House Alcohol intake: current Alcohol intake frequency: holidays/special occasions only Patient Tobacco Use Status: Never used Tobacco Tobacco use type: Cigarette e-Cigarette/Vaping Use: Former Use Second Hand Smoke Exposure: No Substance Use Type: Marijuana service: No Current occupational status: employed Current occupation: [email or web address] Sexual orientation: Straight/Heterosexual Gender identity: Female Cognitive needs: No Hearing needs: No Vision needs: No Female Reproductive History Menstrual Age of Menarche: 11 Questionnaire PHQ-9 Over the last 2 weeks, how often have you been bothered by any of the following problems? 1. Little interest or pleasure in doing things: not at all 2. Feeling down, depressed, or hopeless: not at all 3. Trouble falling or staying asleep, or sleeping too much: not at all 4. Feeling tired or having little energy: not at all 5. Poor appetite or overeating: not at all 6. Feeling bad about yourself - or that you are a failure or have let yourself or your family down: not at all 7. Trouble concentrating on things, such as reading the newspaper or watching television: not at all 8. Moving or speaking so slowly that other people could have noticed. Or the opposite - being so fidgety or restless that you have been moving around a lot more than usual: not at all 9. Thoughts that you would be better off or of hurting yourself in some way: not at all Total score: 0 Depression Screening Interpretation: Negative Depression Screening Done: Yes 40827 - PHQ-9 Billing: Yes Source: Developed by Drs. Lucio Chen, Chante Kramer, Forest Roldan and colleagues, with an educational reema from [employer]. Thrive Questionnaire Date Thrive assessed: 06/11/24 I am a: Patient What is your living situation today?: I have a steady place to live Within the past 12 months, did the food you bought not last and you didn't have the money to get more?: Sometimes True Within the past 12 months, did you worry whether your food would run out before you got money to buy more?: Sometimes True Do you have trouble paying for medicines?: No Do you have trouble getting transportation to medical appointments?: No Do you have trouble paying your heating and electricity bill?: No Do you have trouble taking care of your child, family member or friend?: No Do you have trouble with day-to-day activities such as bathing, preparing meals, shopping, managing finances, etc.?: No Are you currently unemployed and looking for a job?: No Are you interested in more education?: No Please select the resources that you would like help with: None Currently or been in a relationship where the following occur: No concerns reported THRIVE Score: 2 AUDIT C Alcohol Use Questionnaire (AUDIT-C) 1. How often do you have a drink containing alcohol?: Monthly or less 2. How many drinks containing alcohol do you have on a typical day when you are drinking?: 1 or 2 3. How often do you have six or more drinks on one occasion?: Never Total Score: 1 ALBA-7 AMB Questionnaire ALBA-7 Date ALBA - 7 assessed: 06/11/24 Feeling nervous, anxious, or on edge: 0 = Not at all Not being able to stop or control worryin = Not at all Worrying too much about different things: 0 = Not at all Trouble relaxin = Not at all Being so restless that it is hard to sit still: 0 = Not at all Becoming easily annoyed or irritable: 0 = Not at all Feeling afraid as if something awful might happen: 0 = Not at all Total ALBA-7 score (0-4 normal; 5-9 mild; 10-14 moderate; 15-21 severe): 0 Source: Developed by Drs. Lucio Chen, Chante Kramer, Forest Roldan and colleagues, with an educational reema from [employer]. ALBA-7 Assessment Billing ALBA-7 Assessment Tool: ALBA-7 Assessment 92131 Review of Systems Const Denies headache(s) Eyes Denies loss of vision ENT Denies vertigo, Denies dizziness, Denies headache(s) and Denies sore throat Card Denies chest pain, Reports rapid heart rate, Denies leg edema, Denies lightheadedness and Reports dyspnea on exertion Resp Denies cough, Denies hemoptysis, Reports dyspnea on exertion and Denies wheezing GI Denies abdominal pain, Denies melena, Denies constipation, Denies diarrhea and Denies vomiting Denies urinary frequency, Denies dysuria and Denies urinary urgency Musc Denies arthralgias, Denies joint swelling, Denies numbness and Denies tingling Neuro Denies Abnormal speech present, Denies behavioral changes, Denies vertigo, Denies dizziness, Denies headache(s), Denies loss of vision, Denies memory loss, Denies numbness and Denies tingling Psych Denies anxiety, Denies behavioral changes, Denies depression, Denies memory loss and Denies panic attacks Feliberto/Lymph Denies easy bleeding and Denies easy bruising Aller/Immun Denies wheezing Physical exam (Primary Care) Vital Signs: Last Vital Signs Temp 97.1 F 06/11/24 14:17 Pulse 90 06/11/24 14:17 BP 106/60 06/11/24 14:17 Pulse Ox 98 06/11/24 14:17 Oxygen Delivery Method Room Air 06/11/24 14:17 BMI result Body Mass Index 41.5 Tobacco/Smoking Status: Tobacco use Status Tobacco use date assessed 06/11/24 06/11/24 14:23 Patient Tobacco Use Status Never used Tobacco 06/11/24 14:21 Tobacco use type Cigarette 06/11/24 14:21 e-Cigarette/Vaping Use Former Use 06/11/24 14:21 PHQ-9: PHQ-9 Score PHQ-9: Total score 0 06/11/24 14:23 Depression Screening Interpretation: Negative Thrive Assessment: Date of Thrive Assessment Date Thrive assessed 06/11/24 06/11/24 14:21 Currently or been in a relationship where the following occur: No concerns reported Const General: healthy appearing, no acute distress, alert and awake Nutritional Appearance: well nourished Orientation/consciousness: oriented to person, oriented to place and oriented to time HENMT Ears: TM's normal bilaterally General nose exam: Normal nasal mucous membranes and turbinates present Eyes Conjunctivae: conjunctivae normal Sclerae: sclerae normal Pupils: Equal, round and reactive pupils present Neck Neck: Yes no lymphadenopathy and Yes no JVD Thyroid: Thyroid normal Carotids: no bruits Resp Effort & Inspection: normal respiratory effort and not tachypneic Auscultation: no crackles, no rales, no rhonchi and no wheezes Cardio Rate: regular rate Rhythm: regular rhythm Heart sounds: no murmurs and normal S1 and S2 GI Palpation (GI): Soft to palpation, nontender, no hepatomegaly and no splenomegaly Auscultation: normal bowel sounds Skin General skin exam: no rashes or lesions noted and dry skin Neuro General: oriented to person, oriented to place and oriented to time Cranial nerves: Yes Equal, round and reactive pupils present Speech: No Abnormal speech present Gait exam (Neuro): Normal gait present Motor exam (neuro): no tremor noted Extrem Right upper extremity: full ROM Left upper extremity: full ROM Right lower extremity: full ROM; no edema Left lower extremity: full ROM; no edema Psych Mental Status: mental status grossly normal Speech and movement: Normal speech and movement present Affect: normal affect Attitude: cooperative Thought process: Normal thought process present Coding Level of Care Code Est Pt Level 3 (25857) Diagnoses Heart palpitations R00.2 SOBOE (shortness of breath on exertion) R06.02 Additional Codes ALBA-7 Assessment Billing - ALBA-7 Assessment Tool: ALBA-7 Assessment 36756 ([id number]) PHQ-9 - 49297 - PHQ-9 Billing: Yes ([id number]) Assessment & Plan Assessment & Plan (1) Heart palpitations: Code(s): R00.2 - Palpitations Category: Medical Plan: I have discussed the patient's symptoms, including palpitations, tachycardia, and shortness of breath, as likely post-acute sequelae of SARS-CoV-2 infection, although other etiologies such as anemia and cardiac dysrhythmia are being considered. I explained the function of the Holter monitor in evaluating heart rhythm and potential tachycardia, and recommended a chest X-ray and cardiac stress test to further assess her respiratory and cardiac function, particularly during exertion. Arrange placement of a Holter monitor for cardiac rhythm assessment over several days. - Order a chest X-ray for evaluation of pulmonary status. - Consider checking complete blood count to rule out anemia and other potential causes. - Schedule a cardiac stress test to assess for exertional cardiac dysfunction. (2) SOBOE (shortness of breath on exertion): Code(s): R06.02 - Shortness of breath Category: Medical Plan: As above Orders: Orders ECG 5 day holter monitor Today R00.2 - Palpitations CA stress test Today R06.02 - Shortness of breath XR chest 2V Today R06.02 - Shortness of breath TSH reflex Free T4 Today R00.2 - Palpitations
== END 2024-06-11 15:02 | disposition home or self-care (01) ==
PROVIDERS: PCP Physician Assistant; Visit Provider Physician Assistant
DX: R00.2 Palpitations (principal); R06.02 Shortness of breath

== ENCOUNTER → 2024-06-11 14:07 | Outpatient (BNVA) | payer OTHER, SELFPAY | PROVIDERS: PCP Physician Assistant; Visit Provider Physician Assistant | DX: R00.2 Palpitations (principal); R06.02 Shortness of breath | CPT/HCPCS: 96127; 99212 ==

== ENCOUNTER 2024-06-16 15:23 | Outpatient (REF) | payer OTHER, SELFPAY ==
--- NOTE | ~2024-06-16 | XR_ITS ---
CLINICAL HISTORY: R06.02 - Shortness of breath 2 view chest x-ray Comparison: None Findings: No consolidation or effusion. No pneumothorax. Heart size is at the upper limits of normal. 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 Surgical clips in the imaged abdomen. IMPRESSION: No consolidation. This document has been electronically signed by: Asael Currie MD on 06/17/2024 23:12:34
== END 2024-06-16 15:24 | disposition home or self-care (01) ==
LOC: HO.XRAY 15:23
PROVIDERS: PCP Physician Assistant; Visit Provider Physician Assistant
DX: R06.02 Shortness of breath (principal)
CPT/HCPCS: 71046

== ENCOUNTER → 2024-06-16 15:27 | Outpatient (BNV) | payer OTHER, SELFPAY | PROVIDERS: PCP Physician Assistant; Visit Provider Radiology Neuroradiology | DX: R06.02 Shortness of breath (principal) | CPT/HCPCS: 71046 ==

== ENCOUNTER → 2024-06-26 10:00 | Outpatient (REF) | payer OTHER, SELFPAY | LOC: HO.CARD 10:00 | PROVIDERS: PCP Physician Assistant; Visit Provider Physician Assistant | DX: R00.2 Palpitations (principal) | CPT/HCPCS: 93242 ==

== ENCOUNTER → 2024-06-26 10:05 | Outpatient (BNV) | payer OTHER, SELFPAY | PROVIDERS: PCP Physician Assistant; Visit Provider Internal Medicine Cardiovascular Disease | DX: R00.0 Tachycardia, unspecified (principal) | CPT/HCPCS: 93244 ==

== ENCOUNTER → 2024-07-17 20:30 | Outpatient (REF) | payer OTHER, SELFPAY | LOC: HO.SL 20:30 | PROVIDERS: PCP Physician Assistant; Visit Provider Physician Assistant | DX: G47.33 Obstructive sleep apnea (adult) (pediatric) (principal) | CPT/HCPCS: 95810 ==

== ENCOUNTER → 2024-07-17 22:29 | Outpatient (BNV) | payer OTHER, SELFPAY | PROVIDERS: PCP Physician Assistant; Visit Provider Internal Medicine | DX: G47.33 Obstructive sleep apnea (adult) (pediatric) (principal) | CPT/HCPCS: 95810 ==

== ENCOUNTER 2024-08-09 09:57 | Outpatient (AMB) | payer OTHER, SELFPAY ==
[2024-08-09 10:26] VITALS: BP 110/70; PULSE 77; RESP 15; TEMP 36.7; O2SAT 97; BMI 40.0
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
== END 2024-08-09 12:32 | disposition home or self-care (01) ==
LOC: HO.HMCWIC 09:57
PROVIDERS: PCP Physician Assistant; Visit Provider Physician Assistant Medical
DX: F41.9 Anxiety disorder, unspecified (principal)

== ENCOUNTER → 2024-08-09 09:57 | Outpatient (BNVA) | payer OTHER, SELFPAY | PROVIDERS: PCP Physician Assistant; Visit Provider Physician Assistant Medical | DX: Z13.89 Encounter for screening for other disorder (principal) ==

== ENCOUNTER 2024-08-13 10:19 | Outpatient (REF) | payer OTHER, SELFPAY ==
[2024-08-13 11:54] LABS: Hematocrit 40.6 % (37.0-47.0); Hemoglobin 13.5 g/dl (12.0-16.0); Mean Corpuscular HGB Conc 33.3 g/dl (31.0-35.0); Mean Corpuscular Hemoglobin 28.5 pg (27.0-33.0); Mean Corpuscular Volume 85.8 fL (80.0-98.0); Platelet Count 290 X10*3/uL (160-400); Red Blood Count 4.73 X10*6/uL (4.20-5.50); Red Cell Distribution Width 13.1 % (11.0-16.0); White Blood Count 6.7 X10*3/uL (4.8-10.8)
[2024-08-13 12:38] LABS: Alanine Aminotransferase 30 U/L (0-31); Albumin Level 4.1 g/dL (3.5-5.0); Alkaline Phosphatase 76 U/L (39-117); Anion Gap 9 (12-20); Aspartate Amino Transferase 25 U/L (5-31); Bilirubin Total 0.4 mg/dL (0.0-1.0); Blood Urea Nitrogen 9 mg/dL (9-16); Calcium 9.3 mg/dL (8.4-10.2); Carbon Dioxide 28 mmol/L (22-29); Chloride 106 mmol/L (96-108); Cholesterol 138 mg/dL (<200); Estimated Glomerular Filt Rate > 60; Glucose Fasting 132 mg/dL (60-99); HDL Cholesterol 42 mg/dL (>40); LDL Cholesterol Calculated 82 mg/dL (<100); Sodium 139 mmol/L (135-145); Total Protein 7.4 g/dL (6.5-8.0); Triglycerides 74 mg/dL (<150)
[2024-08-13 12:39] LABS: Creatinine Urine 301.11 mg/dL; Microalbum/Creatinine Ratio Ur 4.9 ug/mg cr (<30)
== END 2024-08-13 10:20 | disposition home or self-care (01) ==
LOC: HO.LAB 10:19
PROVIDERS: PCP Physician Assistant; Visit Provider Physician Assistant
DX: F41.9 Anxiety disorder, unspecified (principal); R45.4 Irritability and anger; E11.9 Type 2 diabetes mellitus without complications; F90.9 Attention-deficit hyperactivity disorder, unspecified type
CPT/HCPCS: 36415; 80053; 80061; 82043; 82570; 83036; 85027; 99212

== ENCOUNTER 2024-08-13 10:19 | Outpatient (AMB) | payer OTHER, SELFPAY ==
[2024-08-13 10:36] VITALS: BP 98/70; PULSE 88; TEMP 36.3; O2SAT 97; BMI 39.9
--- NOTE | 2024-08-13 10:36 | A.OFFPC_ITS ---
Vital Signs 08/13/24 10:36 Height 5 ft Weight 204 lb 2 oz BMI 39.9 BP 98/70 Blood Pressure Location Lt brachial Position Sitting Pulse 88 Pulse Source Pulse Oximeter Temp 97.3 F Temp Source Temporal Artery Scan Pulse Oximetry (%) 97 Oxygen Delivery Method Room Air Intake Visit Reasons: Urgent Care follow up Allergies acetaminophen [Lortab] Adverse Reaction (Unknown, Verified 08/13/24 10:42) Unknown hydrocodone [Lortab] Adverse Reaction (Unknown, Verified 08/13/24 10:42) Unknown metformin Adverse Reaction (Unknown, Verified 08/13/24 10:42) Unknown Medication List - Last Reconciled 08/13/24 by Victor Manuel Marinelli PA-C albuterol sulfate 90 mcg/actuation 1 inh inhalation QID PRN 30 days atomoxetine (Strattera) 80 mg PO DAILY 30 days blood sugar diagnostic (FreeStyle Lite Strips) Test 3 times Daily blood-glucose meter (FreeStyle Lite Meter kit) Test 3 times Daiy cholecalciferol (vitamin D3) 25 mcg PO DAILY dulaglutide (Trulicity) 3 mg (0.5 mL) subcut QWEEK 4 weeks hydroxyzine HCl 20 mg (2 x 10 mg) PO BEDTIME 30 days ibuprofen 600 mg PO Q8H PRN lancets (FreeStyle Lancets) As directed levonorgestrel (Mirena) intrauterine lidocaine 5% 1 patch topical DAILY 30 days lorazepam 0.5 mg PO BID PRN multivitamin (One Daily Multivitamin tablet) 1 tab PO DAILY multivitamin 1 tab PO DAILY pen needle, diabetic (BD Ultra-Fine Elizabeth Pen Needle) As directed simvastatin 20 mg PO DAILY Tobacco use date assessed: 06/11/24 Dental Screening Dental Screen Date: 06/11/24 HPI Urgent Care follow up HPI Details The patient is a 39-year-old female presenting with ongoing symptoms of anxiety and adverse medication effects. She reports increased stress after a job change, leading to a noticeable escalation in anxiety, characterized by irritability, panic attacks, and mood swings. She has a recent history of obsessive behaviors, disorientation while driving, and episodes of agitation. Her current medication regimen includes Strattera for ADHD, which she suspects may be contributing to her symptoms, given the onset of these issues coincides with its initiation. The patient also experiences heart palpitations and sleep disturbances, further indicative of medication side effects. Lorazepam has been prescribed, providing some relief, but the patient is wary of developing a depen dence [facility] Medical History Herpes Anxiety HLD (hyperlipidemia) Morbid obesity Diabetes Arthritis Surgical History Hx of tonsillectomy History of cholecystectomy Family History Father Medical history unknown Mother Diabetes Schizophrenia Maternal Uncle Hypertension Myocardial infarction Family/Other Diabetes Cancer Maternal Grandfather Aneurysm Brother No problems noted. Brother No problems noted. Sister No problems noted. Other Mental health disorder Substance use disorder Social History Household Members: Family Housing: House Alcohol intake: current Alcohol intake frequency: holidays/special occasions only Patient Tobacco Use Status: Never used Tobacco Tobacco use type: Cigarette e-Cigarette/Vaping Use: Former Use Second Hand Smoke Exposure: No Substance Use Type: Marijuana service: No Current occupational status: employed Current occupation: [employer] Sexual orientation: Straight/Heterosexual Gender identity: Female Cognitive needs: No Hearing needs: No Vision needs: No Female Reproductive History Menstrual Age of Menarche: 11 Questionnaire Thrive Questionnaire Date Thrive assessed: 06/11/24 ALBA-7 AMB Questionnaire ALBA-7 Date ALBA - 7 assessed: 06/11/24 Source: Developed by Drs. Lucio Chen, Chante Kramer, Forest Roldan and colleagues, with an educational reema from [employer]. Review of Systems Const Denies headache(s) Eyes Denies loss of vision ENT Denies vertigo, Denies dizziness, Denies headache(s) and Denies sore throat Card Denies chest pain, Denies leg edema and Denies lightheadedness Resp Denies cough, Denies hemoptysis and Denies wheezing GI Denies abdominal pain, Denies melena, Denies constipation, Denies diarrhea and Denies vomiting Denies urinary frequency, Denies dysuria and Denies urinary urgency Musc Denies arthralgias, Denies joint swelling, Denies numbness and Denies tingling Neuro Denies Abnormal speech present, Denies behavioral changes, Denies vertigo, Denies dizziness, Denies headache(s), Denies loss of vision, Denies memory loss, Denies numbness and Denies tingling Psych Denies anxiety, Denies behavioral changes, Denies depression, Denies memory loss and Denies panic attacks Feliberto/Lymph Denies easy bleeding and Denies easy bruising Aller/Immun Denies wheezing Physical exam (Primary Care) Vital Signs: Last Vital Signs Temp 97.3 F 08/13/24 10:36 Pulse 88 08/13/24 10:36 BP 98/70 08/13/24 10:36 Pulse Ox 97 08/13/24 10:36 Oxygen Delivery Method Room Air 08/13/24 10:36 BMI result Body Mass Index 39.9 Tobacco/Smoking Status: Tobacco use Status Tobacco use date assessed 06/11/24 08/13/24 10:40 Patient Tobacco Use Status Never used Tobacco 08/13/24 10:40 Tobacco use type Cigarette 08/13/24 10:40 e-Cigarette/Vaping Use Former Use 08/13/24 10:40 Thrive Assessment: Date of Thrive Assessment Date Thrive assessed 06/11/24 08/13/24 10:40 Const General: healthy appearing, no acute distress, alert and awake Nutritional Appearance: well nourished Orientation/consciousness: oriented to person, oriented to place and oriented to time HENMT Ears: TM's normal bilaterally General nose exam: Normal nasal mucous membranes and turbinates present Eyes Conjunctivae: conjunctivae normal Sclerae: sclerae normal Pupils: Equal, round and reactive pupils present Neck Neck: Yes no lymphadenopathy and Yes no JVD Thyroid: Thyroid normal Carotids: no bruits Resp Effort & Inspection: normal respiratory effort and not tachypneic Auscultation: no crackles, no rales, no rhonchi and no wheezes Cardio Rate: regular rate Rhythm: regular rhythm Heart sounds: no murmurs and normal S1 and S2 GI Palpation (GI): Soft to palpation, nontender, no hepatomegaly and no splenomegaly Auscultation: normal bowel sounds Skin General skin exam: no rashes or lesions noted and dry skin Neuro General: oriented to person, oriented to place and oriented to time Cranial nerves: Yes Equal, round and reactive pupils present Speech: No Abnormal speech present Gait exam (Neuro): Normal gait present Motor exam (neuro): no tremor noted Extrem Right upper extremity: full ROM Left upper extremity: full ROM Right lower extremity: full ROM; no edema Left lower extremity: full ROM; no edema Psych Mental Status: mental status grossly normal Speech and movement: Normal speech and movement present Affect: normal affect Attitude: cooperative Thought process: Normal thought process present Results AMB Hemoglobin A1c AMB Hemoglobin A1c 6.2 % Last Edit by MARSHALL Bo on 08/13/24 10:51 Results Reviewed Results Reviewed: Laboratory Last Values Hgb A1c (Clinic) 6.2 % (4.0-6.0) H 08/13/24 10:30 Coding Level of Care Code Est Pt Level 3 (99104) Diagnoses Anxiety F41.9 Irritability and anger R45.4 Assessment & Plan Assessment & Plan (1) Anxiety: Code(s): F41.9 - Anxiety disorder, unspecified Category: Medical Plan: Lorazepam 0.5 mg is provided for managing acute anxiety episodes with caution against dependency. Monitoring for symptoms and follow-up to assess effects of situational stress adjustments are essential. Patient does have upcoming appointment with a mental health therapist Discontinuation of Strattera advised due to adverse effects. Monitoring for symptom resolution post-discontinuation, and review alternative ADHD medications if needed. (2) Irritability and anger: Code(s): R45.4 - Irritability and anger Category: Medical Plan: As above, suspect she is having side effects to Strattera. Orders: Orders AMB Hemoglobin A1c Today E11.9 - Type 2 diabetes mellitus without complications Medications: Refilled 2 lorazepam Can take a 2nd tablet with each dose as needed, with panic attacks or insomnia, if 1st tablet not effective. Maximum of 2 mg per day. Do not drive or do safety sensitive duties while taking. 0.5 mg PO BID PRN 10 tabs 0RF anxiety or insomnia F41.9 - Anxiety disorder, unspecified On Hold atomoxetine (Strattera) Hold Comment: Doctor's Order 80 mg PO DAILY 30 days 30 caps 6RF F90.0 - Attention-deficit hyperactivity disorder, predominantly inattentive type
== END 2024-08-13 10:58 | disposition home or self-care (01) ==
LOC: HO.HMCH 10:20
PROVIDERS: PCP Physician Assistant; Visit Provider Physician Assistant
DX: F41.9 Anxiety disorder, unspecified (principal); R45.4 Irritability and anger; E11.9 Type 2 diabetes mellitus without complications

== ENCOUNTER 2024-09-10 13:33 | Outpatient (AMB) | payer OTHER, SELFPAY ==
--- NOTE | 2024-09-10 13:36 | MHC.PC.OV ---
Vital Signs 09/10/24 13:37 Height 5 ft Weight 206 lb BMI 40.2 BP 126/88 Blood Pressure Location Lt brachial Position Sitting Pulse 72 Pulse Source Pulse Oximeter Temp 97.1 F Temp Source Temporal Artery Scan Pulse Oximetry (%) 99 Oxygen Delivery Method Room Air Intake Visit Reasons: f/u DMII / HLD/ obesity Cell Tester Required: No Accompanied by: Self / Same As Patient Allergies atomoxetine [From Strattera] Adverse Reaction (Intermediate, Verified 09/10/24 13:51) tachycardia acetaminophen [Lortab] Adverse Reaction (Unknown, Verified 09/10/24 13:47) Unknown hydrocodone [Lortab] Adverse Reaction (Unknown, Verified 09/10/24 13:47) Unknown metformin Adverse Reaction (Unknown, Verified 09/10/24 13:47) Unknown Medication List - Last Reconciled 09/10/24 by Victor Manuel Marinelli PA-C albuterol sulfate 90 mcg/actuation 1 inh inhalation QID PRN 30 days atomoxetine (Strattera) 80 mg PO DAILY 30 days blood sugar diagnostic (FreeStyle Lite Strips) Test 3 times Daily blood-glucose meter (FreeStyle Lite Meter kit) Test 3 times Daiy cholecalciferol (vitamin D3) 25 mcg PO DAILY dulaglutide (Trulicity) 3 mg (0.5 mL) subcut QWEEK 4 weeks hydroxyzine HCl 20 mg (2 x 10 mg) PO BEDTIME 30 days ibuprofen 600 mg PO Q8H PRN lancets (FreeStyle Lancets) As directed levonorgestrel (Mirena) intrauterine lidocaine 5% 1 patch topical DAILY 30 days lorazepam 0.5 mg PO BID PRN multivitamin (One Daily Multivitamin tablet) 1 tab PO DAILY multivitamin 1 tab PO DAILY pen needle, diabetic (BD Ultra-Fine Elizabeth Pen Needle) As directed simvastatin 20 mg PO DAILY Tobacco use date assessed: 06/11/24 Dental Screening Dental Screen Date: 06/11/24 HPI f/u DMII / HLD/ obesity HPI Details Patient is a 39-year-old female here today a follow-up visit.? patient has a past medical history significant for obesity asthma, type 2 diabetes, generalized anxiety disorder ADHD :? Has discontinue Strattera and side effects have subsided. She reports her ADHD symptoms have been manageable. 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 She reports she usually gets TB screening every year. .. Generalized anxiety disorder: She reports her anxiety has been better controlled. She has in a better living situation in more stable at her job. She has not using any more lorazepam. Does have hydroxyzine available to her as needed as well. ? .. ? Type 2 diabetes: Patient currently and Trulicity 3mg once a week , most recent fasting blood sugar improved at .? Most recent A1c is 6.3 from 6.9. She does admit to some dietary indiscretion as of late. She has been stressed out at her job which causes her to eat a little bit more. .. Hyperlipidemia:? Patient continues to be compliant with statin therapy.? Most recent LDL acceptable.? ? Will continue current statin therapy. Of note liver enzymes have stabilized. Laboratory Tests 10/16/23 02/20/24 08/13/24 10:48 08:43 10:30 RBC Fasting Glucose Hgb A1c (Clinic) 6.3 H 6.9 H 6.2 H Cholesterol LDL Cholesterol, C alc Urine Microalbumin 08/13/24 08/13/24 11:20 11:25 RBC 4.73 Fasting Glucose 132 H Hgb A1c (Clinic) Cholesterol 138 LDL Cholesterol, C alc 82 Urine Microalbumin 15.0 PFSH Medical History Herpes Anxiety HLD (hyperlipidemia) Morbid obesity Diabetes Arthritis Surgical History Hx of tonsillectomy History of cholecystectomy Family History Father Medical history unknown Mother Diabetes Schizophrenia Maternal Uncle Hypertension Myocardial infarction Family/Other Diabetes Cancer Maternal Grandfather Aneurysm Brother No problems noted. Brother No problems noted. Sister No problems noted. Other Mental health disorder Substance use disorder Social History Household Members: Family Housing: House Alcohol intake: current Alcohol intake frequency: holidays/special occasions only Patient Tobacco Use Status: Never used Tobacco Tobacco use type: Cigarette e-Cigarette/Vaping Use: Former Use Second Hand Smoke Exposure: No Substance Use Type: Marijuana service: No Current occupational status: employed Current occupation: [employer] Sexual orientation: Straight/Heterosexual Gender identity: Female Cognitive needs: No Hearing needs: No Vision needs: No Female Reproductive History Menstrual Age of Menarche: 11 Questionnaire Thrive Questionnaire Date Thrive assessed: 06/11/24 AUDIT C Alcohol Use Questionnaire (AUDIT-C) 2. How many drinks containing alcohol do you have on a typical day when you are drinking?: 1 or 2 Total Score: 0 ALBA-7 AMB Questionnaire ALBA-7 Date ALBA - 7 assessed: 06/11/24 Source: Developed by Drs. Lucio Chen, Chante Kramer, Forest Roldan and colleagues, with an educational reema from [employer]. Review of Systems Const Denies headache(s) Eyes Denies loss of vision ENT Denies vertigo, Denies dizziness, Denies headache(s) and Denies sore throat Card Denies chest pain, Denies leg edema and Denies lightheadedness Resp Denies cough, Denies hemoptysis and Denies wheezing GI Denies abdominal pain, Denies melena, Denies constipation, Denies diarrhea and Denies vomiting Denies urinary frequency, Denies dysuria and Denies urinary urgency Musc Denies arthralgias, Denies joint swelling, Denies numbness and Denies tingling Neuro Denies Abnormal speech present, Denies behavioral changes, Denies vertigo, Denies dizziness, Denies headache(s), Denies loss of vision, Denies memory loss, Denies numbness and Denies tingling Psych Denies anxiety, Denies behavioral changes, Denies depression, Denies memory loss and Denies panic attacks Feliberto/Lymph Denies easy bleeding and Denies easy bruising Aller/Immun Denies wheezing Physical exam (Primary Care) Vital Signs: Last Vital Signs Temp 97.1 F 09/10/24 13:37 Pulse 72 09/10/24 13:37 BP 126/88 09/10/24 13:37 Pulse Ox 99 09/10/24 13:37 Oxygen Delivery Method Room Air 09/10/24 13:37 BMI result Body Mass Index 40.2 BMI Assessment/Plan discussion: High BMI High, discussed plan: lifestyle, weight reduction, dietary and physical activity Tobacco/Smoking Status: Tobacco use Status Tobacco use date assessed 06/11/24 09/10/24 13:37 Patient Tobacco Use Status Never used Tobacco 09/10/24 13:37 Tobacco use type Cigarette 09/10/24 13:37 e-Cigarette/Vaping Use Former Use 09/10/24 13:37 Thrive Assessment: Date of Thrive Assessment Date Thrive assessed 06/11/24 09/10/24 13:37 Const General: healthy appearing, no acute distress, alert and awake Nutritional Appearance: well nourished Orientation/consciousness: oriented to person, oriented to place and oriented to time HENMT Ears: TM's normal bilaterally General nose exam: Normal nasal mucous membranes and turbinates present Eyes Conjunctivae: conjunctivae normal Sclerae: sclerae normal Pupils: Equal, round and reactive pupils present Neck Neck: Yes no lymphadenopathy and Yes no JVD Thyroid: Thyroid normal Carotids: no bruits Resp Effort & Inspection: normal respiratory effort and not tachypneic Auscultation: no crackles, no rales, no rhonchi and no wheezes Cardio Rate: regular rate Rhythm: regular rhythm Heart sounds: no murmurs and normal S1 and S2 GI Palpation (GI): Soft to palpation, nontender, no hepatomegaly and no splenomegaly Auscultation: normal bowel sounds Skin General skin exam: no rashes or lesions noted and dry skin Neuro General: oriented to person, oriented to place and oriented to time Cranial nerves: Yes Equal, round and reactive pupils present Speech: No Abnormal speech present Gait exam (Neuro): Normal gait present Motor exam (neuro): no tremor noted Extrem Right upper extremity: full ROM Left upper extremity: full ROM Right lower extremity: full ROM; no edema Left lower extremity: full ROM; no edema Psych Mental Status: mental status grossly normal Speech and movement: Normal speech and movement present Affect: normal affect Attitude: cooperative Thought process: Normal thought process present Coding Level of Care Code Est Pt Level 4 (22812) Diagnoses Type 2 diabetes mellitus without complication, without long-term current use of insulin E11.9 Diabetes mellitus termination clerk insulin use: without termination clerk use Diabetes mellitus complication status: without complication Anxiety F41.9 Pure hypercholesterolemia E78.00 Hyperlipidemia type: pure hypercholesterolemia Attention deficit hyperactivity disorder (ADHD), predominantly inattentive type F90.0 Attention deficit-hyperactivity disorder type: predominantly inattentive Class 3 obesity E66.813 Assessment & Plan Assessment & Plan (1) DMII (diabetes mellitus, type 2): Code(s): E11.9 - Type 2 diabetes mellitus without complications Category: Medical Qualifiers: Diabetes mellitus prison insulin use: without termination clerk use Diabetes mellitus complication status: without complication Qualified Code(s): E11.9 - Type 2 diabetes mellitus without complications Plan: Patient's type 2 diabetes has been fairly well controlled with current dose of Trulicity 3 mg weekly. She does report some dietary indiscretion as of late and fasting blood sugar was slightly more elevated than usual. Goal A1c is to remain below 7.0 (2) Anxiety: Code(s): F41.9 - Anxiety disorder, unspecified Category: Medical Plan: Patient reports her anxiety is much better as of late, has stopped Strattera which was causing a lot of psychological side effects. She does use lorazepam on an as needed basis and she does use hydroxyzine at night for sleep. (3) HLD (hyperlipidemia): Code(s): E78.5 - Hyperlipidemia, unspecified Category: Medical Qualifiers: Hyperlipidemia type: pure hypercholesterolemia Qualified Code(s): E78.00 - Pure hypercholesterolemia, unspecified Plan: Patient continues on statin therapy without side effect. Most recent lipid panel showing good control over total cholesterol and LDL. Goal LDL is to remain below 100 (4) ADHD: Code(s): F90.9 - Attention-deficit hyperactivity disorder, unspecified type Category: Medical Qualifiers: Attention deficit-hyperactivity disorder type: predominantly inattentive Qualified Code(s): F90.0 - Attention-deficit hyperactivity disorder, predominantly inattentive type Plan: She has stopped using Strattera in her side effects have subsided. She reports her focus is tolerable using methods like a fidget Spinner during meetings. She is not interested in any further medication for ADHD at this point. (5) Class 3 obesity: Code(s): E66.813 - Obesity, class 3 Category: Medical Plan: Patient has establish care with [place] [facility]. Was considering a bariatric surgery though can not take enough time off of work for recovery. Bariatric surgery on hold. She will continue on lifestyle modifications and dietary modifications to reduce her weight. Orders: Orders T Spot TB Today E78.00 - Pure hypercholesterolemia, unspecified, Z11.1 - Encounter for screening for respiratory tuberculosis Comprehensive [place]. Panel Fast Today E11.9 - Type 2 diabetes mellitus without complications Complete Blood Count no Diff Today E11.9 - Type 2 diabetes mellitus without complications Lipid Panel Today E78.00 - Pure hypercholesterolemia, unspecified Medications: Discontinued atomoxetine (Strattera) Discontinued Reason: Doctor's Order 80 mg PO DAILY 30 days 30 caps 6RF F90.0 - Attention-deficit hyperactivity disorder, predominantly inattentive type
[2024-09-10 13:37] VITALS: BP 126/88; PULSE 72; TEMP 36.2; O2SAT 99; BMI 40.2
== END 2024-09-10 14:11 | disposition home or self-care (01) ==
PROVIDERS: PCP Physician Assistant; Visit Provider Physician Assistant
DX: E11.9 Type 2 diabetes mellitus without complications (principal); F41.9 Anxiety disorder, unspecified; E66.813 Obesity, class 3; Z68.41 Body mass index [BMI] 40.0-44.9, adult; E78.00 Pure hypercholesterolemia, unspecified; F90.0 Attention-deficit hyperactivity disorder, predominantly inattentive type

== ENCOUNTER → 2024-09-10 13:33 | Outpatient (BNVA) | payer OTHER, SELFPAY | PROVIDERS: PCP Physician Assistant; Visit Provider Physician Assistant | DX: E11.9 Type 2 diabetes mellitus without complications (principal); J45.909 Unspecified asthma, uncomplicated; F41.1 Generalized anxiety disorder; E78.00 Pure hypercholesterolemia, unspecified; F90.0 Attention-deficit hyperactivity disorder, predominantly inattentive type; E66.813 Obesity, class 3; Z68.41 Body mass index [BMI] 40.0-44.9, adult; Z79.899 Other long term (current) drug therapy | CPT/HCPCS: 99212 ==

== ENCOUNTER 2024-09-11 11:33 | Outpatient (REF) | payer OTHER, SELFPAY ==
[2024-09-13 21:13] LABS: TS Negative Control Passed; TS Panel A 0; TS Panel B 0; TS Positive Control Passed; TSpotTB Negative (Negative)
== END 2024-09-11 11:34 | disposition home or self-care (01) ==
LOC: HO.LAB 11:33
PROVIDERS: PCP Physician Assistant; Visit Provider Physician Assistant
DX: Z11.1 Encounter for screening for respiratory tuberculosis (principal)
CPT/HCPCS: 36415; 86481

== ENCOUNTER 2025-03-07 10:42 | Outpatient (REF) | payer OTHER, SELFPAY ==
[2025-03-07 11:27] LABS: Hematocrit 39.6 % (37.0-47.0); Hemoglobin 13.0 g/dl (12.0-16.0); Mean Corpuscular HGB Conc 32.8 g/dl (31.0-35.0); Mean Corpuscular Hemoglobin 27.8 pg (27.0-33.0); Mean Corpuscular Volume 84.8 fL (80.0-98.0); NRBC Abs Auto 0.000 X10*3/uL (0.0-0.012); NRBC Pct Auto 0.0 /100WBC (0.0-0.2); Platelet Count 250 X10*3/uL (160-400); Red Blood Count 4.67 X10*6/uL (4.20-5.50); White Blood Count 7.3 X10*3/uL (4.8-10.8)
[2025-03-07 12:47] LABS: Alanine Aminotransferase 26 U/L (0-31); Albumin Level 4.0 g/dL (3.5-5.0); Alkaline Phosphatase 73 U/L (39-117); Anion Gap 12 (12-20); Aspartate Amino Transferase 32 U/L (5-31); Blood Urea Nitrogen 8 mg/dL (9-16); Calcium 8.8 mg/dL (8.4-10.2); Carbon Dioxide 24 mmol/L (22-29); Chloride 108 mmol/L (96-108); Cholesterol 131 mg/dL (<200); Estimated Glomerular Filt Rate > 60; HDL Cholesterol 40 mg/dL (>40); Potassium 4.0 mmol/L (3.3-5.1); Sodium 140 mmol/L (135-145); Total Protein 7.0 g/dL (6.5-8.0); Triglycerides 90 mg/dL (<150)
== END 2025-03-07 10:43 | disposition home or self-care (01) ==
LOC: HO.LAB 10:42
PROVIDERS: PCP Physician Assistant; Visit Provider Physician Assistant
DX: R00.2 Palpitations (principal); E78.00 Pure hypercholesterolemia, unspecified; E11.9 Type 2 diabetes mellitus without complications
CPT/HCPCS: 36415; 80053; 80061; 83036; 84443; 85027

== ENCOUNTER 2025-03-12 09:12 | Outpatient (AMB) | payer OTHER, SELFPAY ==
--- NOTE | 2025-03-12 09:25 | A.OFFPC_ITS ---
Vital Signs 03/12/25 09:26 Height 5 ft Weight 212 lb 8 oz BMI 41.5 BP 110/70 Blood Pressure Location Lt brachial Position Sitting Pulse 84 Pulse Source Pulse Oximeter Temp 97.3 F Temp Source Temporal Artery Scan Pulse Oximetry (%) 99 Oxygen Delivery Method Room Air Intake Visit Reasons: Annual Exam Intake Note: Pt would like to lower dose of the hydroxyzine that shes currently taking instead of bid times a day she would like to only take one dose because pt states shes having trouble getting up. Commercial Loan Reviewer Required: No Accompanied by: Self / Same As Patient Allergies atomoxetine (From Strattera) Adverse Reaction (Intermediate, Verified 03/12/25 09:46) tachycardia acetaminophen (Lortab) Adverse Reaction (Unknown, Verified 03/12/25 09:46) Unknown hydrocodone (Lortab) Adverse Reaction (Unknown, Verified 03/12/25 09:46) Unknown metformin Adverse Reaction (Unknown, Verified 03/12/25 09:46) Unknown Medication List - Last Reconciled 03/12/25 by Victor Manuel Marinelli PA-C albuterol sulfate 90 mcg/actuation 1 inh inhalation QID PRN 30 days blood sugar diagnostic (FreeStyle Lite Strips) Test 3 times Daily blood-glucose meter (FreeStyle Lite Meter kit) Test 3 times Daiy cholecalciferol (vitamin D3) 25 mcg PO DAILY hydroxyzine HCl 20 mg (2 x 10 mg) PO BEDTIME 30 days ibuprofen 600 mg PO Q8H PRN lancets (FreeStyle Lancets) As directed levonorgestrel (Mirena) intrauterine lidocaine 5% 1 patch topical DAILY 30 days lorazepam 0.5 mg PO BID PRN multivitamin (One Daily Multivitamin tablet) 1 tab PO DAILY pen needle, diabetic (BD Ultra-Fine Elizabeth Pen Needle) As directed simvastatin 20 mg PO DAILY tirzepatide (Mounjaro) 2.5 mg (0.5 mL) subcut QWEEK 4 weeks Held on 03/03/25. Instructions: Doctor's Order tirzepatide (Mounjaro) 5 mg (0.5 mL) subcut QWEEK 4 weeks Tobacco use date assessed: 06/11/24 Dental Screening Dental Screen Date: 06/11/24 Did you have a dental visit in the last 12 months?: Yes Did you have a dental problem in the last 6 months where you did not have access to dental care?: No Was dental information given to patient?: Patient has dentist HPI Annual Exam HPI Details Patient is a 39-year-old female here today for routine annual physical.? patient has a past medical history significant for obesity asthma, type 2 diabetes, generalized anxiety disorder .. Generalized anxiety disorder: For anxiety, the patient has been taking hydroxyzine 20 mg, but reports this dose causes significant difficulty waking up and daytime drowsiness. For the past couple of months, the patient has been cutting the dose in half to 10 mg and has found this to be more functional. The patient notes that anxiety is not as severe as it used to be, despite recent stressful events. She also does report her cat is an emotional support animal and has helped her through a lot of stressful situations. She may ask in the future for a supporting letter ? .. ? Type 2 diabetes: , most recent fasting blood sugar improved at .? Most recent A1c is 6.8. She does admit to some dietary indiscretion as of late. Also a stressor in her life is her roommate though was moving out in the next week.. PLAN: Will plan to increase her Mounjaro to 5 mg weekly for better glycemic control and weight reduction .. Class 3 obesity: Patient does understand her BMI is over 40 and will continue working on being more physically active and adapting to better eating habits to reduce her weight .. Hyperlipidemia:? Patient continues to be compliant with statin therapy.? Most recent LDL acceptable.? ? Will continue current statin therapy. Of note liver enzymes have stabilized. SANITOR: She is followed by a service delivery manager, has up-to-date Pap smear. Recently diagnosed with PCOS. Mammogram: Done in April of 2024, BI-RADS 1. Has upcoming appointment for mammogram Vaccines: Up-to-date with COVID vaccine, flu vaccine, NEEDS up-to-date tetanus vaccine and PVC-20 PFSH Medical History (Updated 03/12/25 @ 13:57 by Victor Manuel Marinelli PA-C) Herpes Anxiety HLD (hyperlipidemia) Arthritis Surgical History Hx of tonsillectomy History of cholecystectomy Family History Father Medical history unknown Mother Diabetes Schizophrenia Maternal Uncle Hypertension Myocardial infarction Family/Other Diabetes Cancer Maternal Grandfather Aneurysm Brother No problems noted. Brother No problems noted. Sister No problems noted. Other Mental health disorder Substance use disorder Social History Household Members: Family Housing: House Alcohol intake: current Alcohol intake frequency: holidays/special occasions only Patient Tobacco Use Status: Never used Tobacco Tobacco use type: Cigarette e-Cigarette/Vaping Use: Former Use Second Hand Smoke Exposure: No Substance Use Type: Marijuana service: No Current occupational status: employed Current occupation: [employer] Sexual orientation: Straight/Heterosexual Gender identity: Female Cognitive needs: No Hearing needs: No Vision needs: No Female Reproductive History Menstrual Age of Menarche: 11 Questionnaire PHQ-9 Over the last 2 weeks, how often have you been bothered by any of the following problems? 1. Little interest or pleasure in doing things: not at all 2. Feeling down, depressed, or hopeless: not at all 3. Trouble falling or staying asleep, or sleeping too much: not at all 4. Feeling tired or having little energy: not at all 5. Poor appetite or overeating: several days 6. Feeling bad about yourself - or that you are a failure or have let yourself or your family down: not at all 7. Trouble concentrating on things, such as reading the newspaper or watching television: not at all 8. Moving or speaking so slowly that other people could have noticed. Or the opposite - being so fidgety or restless that you have been moving around a lot more than usual: not at all 9. Thoughts that you would be better off or of hurting yourself in some way: not at all Total score: 1 Depression Screening Interpretation: Negative Depression Screening Done: Yes 25967 - PHQ-9 Billing: Patient declined-do not bill Source: Developed by Drs. Lucio Chen, Chante Kramer, Forest Roldan and colleagues, with an educational reema from [email or web address]. Thrive Questionnaire Date Thrive assessed: 06/11/24 I am a: Patient What is your living situation today?: I have a steady place to live Within the past 12 months, did the food you bought not last and you didn't have the money to get more?: Often true Within the past 12 months, did you worry whether your food would run out before you got money to buy more?: Often true Do you have trouble paying for medicines?: No Do you have trouble getting transportation to medical appointments?: No Do you have trouble paying your heating and electricity bill?: No Do you have trouble taking care of your child, family member or friend?: No Do you have trouble with day-to-day activities such as bathing, preparing meals, shopping, managing finances, etc.?: No Are you currently unemployed and looking for a job?: No Are you interested in more education?: No Please select the resources that you would like help with: Food Currently or been in a relationship where the following occur: I choose not to answer THRIVE Score: 2 AUDIT C Alcohol Use Questionnaire (AUDIT-C) 1. How often do you have a drink containing alcohol?: Monthly or less Total Score: 1 ALBA-7 AMB Questionnaire ALBA-7 Date ALBA - 7 assessed: 06/11/24 Feeling nervous, anxious, or on edge: 0 = Not at all Not being able to stop or control worryin = Not at all Worrying too much about different things: 0 = Not at all Trouble relaxin = Not at all Being so restless that it is hard to sit still: 0 = Not at all Becoming easily annoyed or irritable: 0 = Not at all Feeling afraid as if something awful might happen: 0 = Not at all Total ALBA-7 score (0-4 normal; 5-9 mild; 10-14 moderate; 15-21 severe): 0 Source: Developed by Drs. Lucio Chen, Chante Kramer, Forest Roldan and colleagues, with an educational reema from [email or web address]. Review of Systems Const Denies body aches, Denies chills, Denies excessive sweating, Denies fatigue, Denies fever(s) and Denies headache(s) Eyes Denies blurry vision ENT Denies dysphagia, Denies vertigo, Denies dizziness, Denies headache(s), Denies hearing loss and Denies tinnitus Card Denies chest pain, Denies chest pain with activity, Denies syncope, Denies irregular heart rhythm and Denies dyspnea Resp Denies chest congestion, Denies cough, Denies hemoptysis, Denies dyspnea and Denies wheezing GI Denies abdominal pain, Denies melena, Denies hematochezia, Denies coffee ground emesis, Denies dysphagia, Denies diarrhea, Denies nausea and Denies vomiting Denies urinary frequency, Denies dysuria, Denies urinary hesitancy and Denies urinary urgency Musc Denies arthralgias, Denies limited range of motion, Denies muscle cramps and Denies muscle weakness Skin/Breast Denies rash and Denies skin ulcer Neuro Denies Abnormal speech present, Denies confusion, Denies vertigo, Denies dizziness, Denies syncope, Denies headache(s), Denies memory loss and Denies seizure-like activity Psych Denies anxiety, Denies confusion, Denies depression, Denies memory loss, Denies panic attacks and Denies paranoia Endo Denies excessive sweating, Denies fatigue, Denies flushing, Denies polydipsia and Denies polyuria Aller/Immun Denies wheezing Physical exam (Primary Care) Vital Signs: Last Vital Signs Temp 97.3 F 03/12/25 09:26 Pulse 84 03/12/25 09:26 BP 110/70 03/12/25 09:26 Pulse Ox 99 03/12/25 09:26 Oxygen Delivery Method Room Air 03/12/25 09:26 BMI result Body Mass Index 41.5 BMI Assessment/Plan discussion: High BMI High, discussed plan: lifestyle, weight reduction, dietary and physical activity Tobacco/Smoking Status: Tobacco use Status Tobacco use date assessed 06/11/24 03/12/25 09:27 Patient Tobacco Use Status Never used Tobacco 03/12/25 09:27 Tobacco use type Cigarette 03/12/25 09:27 e-Cigarette/Vaping Use Former Use 03/12/25 09:27 PHQ-9: PHQ-9 Score PHQ-9: Total score 1 03/12/25 10:24 Depression Screening Interpretation: Negative Thrive Assessment: Date of Thrive Assessment Date Thrive assessed 06/11/24 03/12/25 09:27 Currently or been in a relationship where the following occur: I choose not to answer Const General: cooperative, comfortable, no acute distress, alert and awake; No confusion Orientation/consciousness: oriented to person, oriented to place, patient oriented x3 and No confusion [facility] Head: Yes normocephalic Ears: external ears normal and TM's normal bilaterally Face and sinus: No sinus tenderness Mouth: Normal oral and palatal mucosa present and tongue normal Teeth and gingiva: dentition normal and gingiva normal Throat: Yes posterior oropharynx normal, Yes tonsils normal and Yes uvula midline Eyes Conjunctivae: conjunctivae normal Sclerae: sclerae normal Pupils: Equal, round and reactive pupils present EOM: EOMs intact bilaterally Direct Ophthalmoscopy: No no photophobia Neck Neck: Yes no lymphadenopathy, No tender and Yes no JVD Thyroid: Thyroid normal Carotids: no bruits Chest Chest palpation & inspection: no tenderness Resp Effort & Inspection: normal respiratory effort, no audible wheezes, not labored and no stridor Auscultation: no crackles, no rales, no rhonchi and no wheezes Cardio Jugular venous distension: no JVD Rate: regular rate, not bradycardic and not tachycardic Rhythm: regular rhythm Bruits: no carotid bruits Peripheral pulses: Peripheral pulses 2+ throughout GI Inspection: Yes normal to inspection, No abdominal wall ecchymosis and No visible herniation Palpation (GI): Soft to palpation, nontender, no guarding, not rigid and No hepatosplenomegaly present Auscultation: normoactive bowel sounds General: Yes no CVA tenderness Back/Spine/Pelvis Back: no CVA tenderness and No back tenderness Cervical Spine: cervical ROM normal Thoracic/Lumbar Spine: thoracic and lumbar spine normal to inspection, straight leg raise negative bilaterally, No thoraco-lumbar ROM limited and No lumbar spinal tenderness Skin Lesions: no lesions Rashes: no rashes Wounds: no wounds Neuro General: oriented to person, oriented to place, patient oriented x3, CN's II-XI intact bilaterally and No confusion Cranial nerves: Yes Equal, round and reactive pupils present and Yes Normal accommodation reflex present Cognition (Neuro): normal cognition Speech: No Abnormal speech present Gait exam (Neuro): Normal gait present Motor exam (neuro): 5/5 motor strength present throughout Extrem Right upper extremity: full ROM; no cyanosis Left upper extremity: full ROM; no cyanosis Right lower extremity: no edema Left lower extremity: no edema Psych Appearance: grossly normal Mental Status: mental status grossly normal Affect: normal affect Attitude: cooperative Thought process: Normal thought process present Immunizations pneumoc 20-judd conj-dip cr(PF) 0.5 mL IM syringe Performing Provider: Victor Manuel Marinelli PA-C Performing Location[facility] Administered by: Mark Solis CMA on 03/12/25 10:24 Dose Route Admin Location Dispensed Lot Number Expiration Date [facility] Roulette Dealer 0.5 mL IM Left Deltoid 0.5 mL [id number] 01/20/26 [id number] [email or web address] Total Dispensed Waste 0.5 mL 0 % VIS Given Date VIS Provided VIS Publication Date 03/12/25 Single Vaccine 24 Eligibility Eligibility Date Funding Source [facility] Eligible-Medicaid 03/12/25 Private Boostrix Tdap 2.5 Lf unit-8 mcg-5 Lf/0.5 mL intramuscular syringe Performing Provider: Victor Manuel Marinelli PA-C Performing Location: [facility] Adult [facility] Administered by: Mark Solis CMA on 03/12/25 10:26 Dose Route Admin Location Dispensed Lot Number Expiration Date [facility] Roulette Dealer 0.5 mL IM Right Deltoid 0.5 mL [id number] 10/03/27 [id number] [employer] Total Dispensed Waste 0.5 mL 0 % VIS Given Date VIS Provided VIS Publication Date 03/12/25 Single Vaccine 20 Eligibility Eligibility Date Funding Source [facility] Eligible-Medicaid 03/12/25 Private Coding Level of Care Code Est Pt Prev Care [id number]([id number]) Diagnoses Annual physical exam Z00.00 Type 2 diabetes mellitus without complication, without long-term current use of insulin E11.9 Diabetes mellitus complication status: without complication Diabetes mellitus terminal operations manager insulin use: without longterm use Anxiety F41.9 Pure hypercholesterolemia E78.00 Hyperlipidemia type: pure hypercholesterolemia Class 3 obesity E66.813 Assessment & Plan Assessment & Plan (1) Annual physical exam: Code(s): Z00.00 - Encounter for general adult medical examination without abnormal findings Category: Medical Plan: As per HPI (2) DMII (diabetes mellitus, type 2): Code(s): E11.9 - Type 2 diabetes mellitus without complications Category: Medical Qualifiers: Diabetes mellitus complication status: without complication Diabetes mellitus terminal operations manager insulin use: without longterm use Qualified Code(s): E11.9 - Type 2 diabetes mellitus without complications Plan: Patient's type 2 diabetes has been fairly well controlled with current dose Mounjaro 2.5 mg, she is willing to increase her monitor will to 5 mg for better glycemic control.. She does report some dietary indiscretion as of late and fasting blood sugar was slightly more elevated than usual. Goal A1c is to remain below 7.0 (3) Anxiety: Code(s): F41.9 - Anxiety disorder, unspecified Category: Medical Plan: She uses hydroxyzine on a nightly basis. She would like to reduce her hydroxyzine dose to 10 mg before bed to help reduce her sleepiness in the mornings.. (4) HLD (hyperlipidemia): Code(s): E78.5 - Hyperlipidemia, unspecified Category: Medical Qualifiers: Hyperlipidemia type: pure hypercholesterolemia Qualified Code(s): E78.00 - Pure hypercholesterolemia, unspecified Plan: Patient continues on statin therapy without side effect. Most recent lipid panel showing good control over total cholesterol and LDL. Goal LDL is to remain below 100 (5) Class 3 obesity: Code(s): E66.813 - Obesity, class 3 Category: Medical Plan: Again patient does understand her BMI is over 40 and will work on being more physically active and adapt to better eating habits to reduce her weight Orders: Orders Pneumococcal 20 Immunization Today F41.9 - Anxiety disorder, unspecified, Z23 - Encounter for immunization Comprehensive Patten. Panel Fast Today E11.9 - Type 2 diabetes mellitus without complications Microalbumin, Random (w Creat) Today E11.9 - Type 2 diabetes mellitus without complications TDaP Immunization Today F41.9 - Anxiety disorder, unspecified, Z23 - Encounter for immunization Lipid Panel Today E78.00 - Pure hypercholesterolemia, unspecified Complete Blood Count no Diff Today E11.9 - Type 2 diabetes mellitus without complications Medications: Changed From hydroxyzine HCl 20 mg (2 x 10 mg) PO BEDTIME 30 days 60 tabs 3RF F41.9 - Anxiety disorder, unspecified To hydroxyzine HCl 10 mg PO BEDTIME 30 tabs 3RF 30 days F41.9 - Anxiety disorder, unspecified Refilled tirzepatide (Mounjaro) 5 mg (0.5 mL) subcut QWEEK 2 mL 3RF 4 weeks E11.9 - Type 2 diabetes mellitus without complications
[2025-03-12 09:26] VITALS: BP 110/70; PULSE 84; TEMP 36.3; O2SAT 99; BMI 41.5
== END 2025-03-12 10:26 | disposition home or self-care (01) ==
LOC: HO.HMCH 09:14
PROVIDERS: PCP Physician Assistant; Visit Provider Physician Assistant
DX: Z00.00 Encounter for general adult medical examination without abnormal findings (principal); E11.9 Type 2 diabetes mellitus without complications; E66.813 Obesity, class 3; Z68.41 Body mass index [BMI] 40.0-44.9, adult; F41.9 Anxiety disorder, unspecified; E78.00 Pure hypercholesterolemia, unspecified; Z23 Encounter for immunization

== ENCOUNTER → 2025-03-12 09:12 | Outpatient (BNVA) | payer OTHER, SELFPAY | PROVIDERS: PCP Physician Assistant; Visit Provider Physician Assistant | DX: Z00.00 Encounter for general adult medical examination without abnormal findings (principal); Z23 Encounter for immunization; E11.9 Type 2 diabetes mellitus without complications; F41.9 Anxiety disorder, unspecified; E78.00 Pure hypercholesterolemia, unspecified; E66.813 Obesity, class 3; Z68.41 Body mass index [BMI] 40.0-44.9, adult | CPT/HCPCS: 90471; 90472; 90677; 90715; 99396 ==